=== PATIENT | male | born 1950 | race Caucasian/White ===

== ENCOUNTER → 2022-09-18 15:40 | Outpatient (BNVA) | payer MEDICARE, SELFPAY | PROVIDERS: PCP Nurse Practitioner; Visit Provider Nurse Practitioner | DX: E11.65 Type 2 diabetes mellitus with hyperglycemia (principal); J44.9 Chronic obstructive pulmonary disease, unspecified; I25.10 Atherosclerotic heart disease of native coronary artery without angina pectoris; Z95.810 Presence of automatic (implantable) cardiac defibrillator; I10 Essential (primary) hypertension | CPT/HCPCS: 80053; 80061; 81000; 82043; 83036; 83721; 84443; 85025 ==

== ENCOUNTER → 2022-10-31 14:04 | Outpatient (BNVA) | payer MEDICARE, SELFPAY | PROVIDERS: PCP Nurse Practitioner; Visit Provider Internal Medicine | DX: I73.9 Peripheral vascular disease, unspecified (principal); R06.02 Shortness of breath; Z95.810 Presence of automatic (implantable) cardiac defibrillator; E11.65 Type 2 diabetes mellitus with hyperglycemia; I10 Essential (primary) hypertension; E78.2 Mixed hyperlipidemia; J44.9 Chronic obstructive pulmonary disease, unspecified; I25.10 Atherosclerotic heart disease of native coronary artery without angina pectoris; Z87.891 Personal history of nicotine dependence; Z79.84 Long term (current) use of oral hypoglycemic drugs; Z79.82 Long term (current) use of aspirin | CPT/HCPCS: 93005; 99204 ==

== ENCOUNTER → 2022-11-05 08:58 | Outpatient (BNVA) | payer MEDICARE, SELFPAY | PROVIDERS: PCP Nurse Practitioner; Visit Provider Podiatrist Foot & Ankle Surgery | DX: I73.9 Peripheral vascular disease, unspecified (principal); B35.1 Tinea unguium; E11.9 Type 2 diabetes mellitus without complications; R60.9 Edema, unspecified; L60.3 Nail dystrophy; L84 Corns and callosities; Z79.84 Long term (current) use of oral hypoglycemic drugs | CPT/HCPCS: 11056; 11721; 99204 ==

== ENCOUNTER 2022-11-27 09:35 | Outpatient (CLI) | payer MEDICARE, SELFPAY ==
--- NOTE | 2022-11-27 10:00 | USCV_ITS ---
Harlan Diaz Age: 72 Gender: M : 1950 Exam Date: 11/27/2022 10:01 Ordering Phys: Kaushal Glover M.D ([email or web address]) Technologist: JAY [place]am [place] [facility] [place]: SHORTNESS OF BREATH BP: 137 / 90 HR: 62 Rhythm: Sinus Technical Quality: Adequate MEASUREMENTS (Male / Female) Normal Values 2D ECHO LVOT Diameter 2.0 cm LV Ejection Fraction MOD 2C 65.9 % LV Ejection Fraction 2C AL 67.7 % LA Diameter 3.1 cm LA Width 3.4 cm LA Height 5.1 cm RA Width 3.1 cm RA Height 3.9 cm Aorta at Sinotubular Diameter 2.6 cm IVC Diameter 1.7 cm M-MODE Aortic Annulus Diameter 2.8 cm LA Ao Ratio MM 1.0 MV E Point Septal Separation 0.6 cm DOPPLER AV Peak Velocity 184.0 cm/s LVOT Peak Velocity 78.0 cm/s AV Area Cont Eq vti 1.5 cm squared AV Area Cont Eq pk 1.3 cm squared MV Peak Velocity 114.0 cm/s MV Area PHT 5.0 cm squared Mitral E to A Ratio 1.4 MV E' Velocity 51.5 cm/s Mitral E to MV E' Ratio 12.7 Mitral E to LV E' Lateral Ratio 11.4 Mitral E to LV E' Septal Ratio 14.4 TV Peak E Velocity 56.0 cm/s Right Atrial Pressure 3.0 mmHg PV Peak Velocity 126.0 cm/s RV Acceleration Time 0.1 s RV Ejection Time 0.3 s RV AcT/ET 0.3 FINDINGS Left Ventricle Left ventricle is normal in size. LV systolic function is normal with EF of 55 to 60%. No regional wall motion abnormalities are seen. Right Ventricle Normal in size and function Right Atrium Normal in size Left Atrium Dilated Mitral Valve Structurally normal mitral valve. Trace mitral regurgitation. Aortic Valve Structurally normal aortic valve. No significant stenosis or regurgitation. Tricuspid Valve Mild tricuspid regurgitation.. Insufficient TR jet to calculate RVSP Pulmonic Valve Not well-visualized Pericardium Normal Aorta Normal in size IVC Appears to normal CONCLUSIONS LV systolic function is normal with EF 55 to 60% Left atrial dilation Trace mitral regurgitation Mild tricuspid regurgitaiton No comparison studies are available Kaushal Glover MD (Electronically Signed) Final Date: 08 December 2022 08:51 S
== END 2022-11-27 09:36 | disposition home or self-care (01) ==
PROVIDERS: PCP Nurse Practitioner; Visit Provider Internal Medicine
DX: R06.02 Shortness of breath (principal); I08.1 Rheumatic disorders of both mitral and tricuspid valves
CPT/HCPCS: 93306

== ENCOUNTER → 2022-12-18 16:41 | Outpatient (BNVA) | payer MEDICARE, SELFPAY | PROVIDERS: PCP Nurse Practitioner; Visit Provider Nurse Practitioner | DX: E78.2 Mixed hyperlipidemia (principal); E11.65 Type 2 diabetes mellitus with hyperglycemia; I10 Essential (primary) hypertension; I25.10 Atherosclerotic heart disease of native coronary artery without angina pectoris; J44.9 Chronic obstructive pulmonary disease, unspecified; Z12.5 Encounter for screening for malignant neoplasm of prostate; E11.9 Type 2 diabetes mellitus without complications | CPT/HCPCS: 80053; 81000; 83036; G0103 ==

== ENCOUNTER → 2023-01-07 08:57 | Outpatient (BNVA) | payer MEDICARE, SELFPAY | PROVIDERS: PCP Nurse Practitioner; Visit Provider Podiatrist Foot & Ankle Surgery | DX: I73.9 Peripheral vascular disease, unspecified (principal); B35.1 Tinea unguium; E11.9 Type 2 diabetes mellitus without complications; R60.9 Edema, unspecified; L60.3 Nail dystrophy | CPT/HCPCS: 11721 ==

== ENCOUNTER → 2023-03-04 10:18 | Outpatient (BNVA) | payer MEDICARE, SELFPAY | PROVIDERS: PCP Nurse Practitioner; Visit Provider Nurse Practitioner | DX: E11.65 Type 2 diabetes mellitus with hyperglycemia (principal); J44.9 Chronic obstructive pulmonary disease, unspecified; E78.2 Mixed hyperlipidemia; I25.10 Atherosclerotic heart disease of native coronary artery without angina pectoris; E11.9 Type 2 diabetes mellitus without complications; I10 Essential (primary) hypertension | CPT/HCPCS: 80053; 80061; 82043; 83036 ==

== ENCOUNTER → 2023-03-18 09:38 | Outpatient (BNVA) | payer MEDICARE, SELFPAY | PROVIDERS: PCP Nurse Practitioner; Visit Provider Podiatrist Foot & Ankle Surgery | DX: I73.9 Peripheral vascular disease, unspecified (principal); B35.1 Tinea unguium; E11.9 Type 2 diabetes mellitus without complications; R60.9 Edema, unspecified; L60.3 Nail dystrophy; Z79.84 Long term (current) use of oral hypoglycemic drugs | CPT/HCPCS: 11721 ==

== ENCOUNTER → 2023-05-24 07:57 | Outpatient (BNVA) | payer MEDICARE, SELFPAY | PROVIDERS: PCP Nurse Practitioner; Visit Provider Podiatrist Foot & Ankle Surgery | DX: I73.9 Peripheral vascular disease, unspecified (principal); B35.1 Tinea unguium; E11.9 Type 2 diabetes mellitus without complications; R60.9 Edema, unspecified; L60.3 Nail dystrophy; Z79.84 Long term (current) use of oral hypoglycemic drugs | CPT/HCPCS: 11721 ==

== ENCOUNTER → 2023-05-27 08:59 | Outpatient (BNVA) | payer MEDICARE, SELFPAY | PROVIDERS: PCP Nurse Practitioner; Visit Provider Nurse Practitioner | DX: E78.2 Mixed hyperlipidemia (principal); E11.65 Type 2 diabetes mellitus with hyperglycemia; I10 Essential (primary) hypertension; R39.11 Hesitancy of micturition; E11.9 Type 2 diabetes mellitus without complications; J44.9 Chronic obstructive pulmonary disease, unspecified; I25.10 Atherosclerotic heart disease of native coronary artery without angina pectoris | CPT/HCPCS: 80053; 80061; 81000; 83036 ==

== ENCOUNTER → 2023-07-26 07:52 | Outpatient (BNVA) | payer MEDICARE, SELFPAY | PROVIDERS: PCP Nurse Practitioner; Visit Provider Podiatrist Foot & Ankle Surgery | DX: B35.1 Tinea unguium (principal); E11.9 Type 2 diabetes mellitus without complications; I73.9 Peripheral vascular disease, unspecified; R60.9 Edema, unspecified; L60.3 Nail dystrophy; Z79.84 Long term (current) use of oral hypoglycemic drugs | CPT/HCPCS: 11721 ==

== ENCOUNTER → 2023-07-31 13:19 | Outpatient (BNVA) | payer MEDICARE, SELFPAY | PROVIDERS: PCP Nurse Practitioner; Visit Provider Nurse Practitioner Family | DX: I10 Essential (primary) hypertension (principal); I25.10 Atherosclerotic heart disease of native coronary artery without angina pectoris; Z95.810 Presence of automatic (implantable) cardiac defibrillator; Z87.891 Personal history of nicotine dependence | CPT/HCPCS: 99214 ==

== ENCOUNTER → 2023-08-19 08:33 | Outpatient (BNVA) | payer MEDICARE, SELFPAY | PROVIDERS: PCP Nurse Practitioner; Visit Provider Nurse Practitioner | DX: E11.65 Type 2 diabetes mellitus with hyperglycemia (principal) | CPT/HCPCS: 80053; 80061; 83036 ==

== ENCOUNTER → 2023-10-14 08:13 | Outpatient (BNVA) | payer MEDICARE, SELFPAY | PROVIDERS: PCP Nurse Practitioner; Visit Provider Podiatrist Foot & Ankle Surgery | DX: B35.1 Tinea unguium (principal); E11.9 Type 2 diabetes mellitus without complications; I73.9 Peripheral vascular disease, unspecified; R60.9 Edema, unspecified; L60.3 Nail dystrophy; Z79.84 Long term (current) use of oral hypoglycemic drugs | CPT/HCPCS: 11056; 11721 ==

== ENCOUNTER → 2023-11-19 09:01 | Outpatient (BNVA) | payer MEDICARE, SELFPAY | PROVIDERS: PCP Nurse Practitioner; Visit Provider Nurse Practitioner | DX: E11.9 Type 2 diabetes mellitus without complications (principal); F17.210 Nicotine dependence, cigarettes, uncomplicated | CPT/HCPCS: 80053; 83036 ==

== ENCOUNTER → 2023-11-26 10:16 | Outpatient (BNVA) | payer MEDICARE, SELFPAY | PROVIDERS: PCP Nurse Practitioner; Visit Provider Nurse Practitioner Family | DX: J44.1 Chronic obstructive pulmonary disease with (acute) exacerbation (principal) | CPT/HCPCS: 71046 ==

== ENCOUNTER 2023-11-27 13:05 | Outpatient (CLI) | payer MEDICARE, SELFPAY ==
--- NOTE | 2023-11-27 13:30 | CT_ITS ---
WS: [id number] LDCT LUNG CANCER SCREENING TECHNIQUE: Noncontrast CT of the chest with coronal and sagittal reformatted images. CLINICAL INFORMATION: F17.210 - Nicotine dependence, cigarettes, uncomplicated COMPARISON: None. DLP: 62.51 mGy.cm DIvol: Mean CTDIvol: 1.30 (mGy) All CT scans at [facility] use at least one of these dose optimization techniques: automat ed exposure control; mA and/or kV adjustment per patient size (includes targeted exams where dose is matched to clinical indication); or iterative reconstruction. FINDINGS: Patchy airspace infiltrates RIGHT lower lobe with nodularity. Recommend correlation for pne umonia. Bronchiectasis RIGHT lower lobe. Recommend short interval follow-up after treatment. Spiculated irregular lesion LEFT lower lobe has a suspicious appearance measuring 1.3 cm. Recommend f urther evaluation with PET/CT. This slightly abuts the diaphragm. Hypertrophic changes thoracic spine. Aortic calcification. Coronary calcification. AICD. A few promin ent parabronchial lymph nodes. Largest LEFT parabronchial lymph node measures 12 mm. No axillary lymp hadenopathy. Adrenal glands are normal. Normal GE junction. IMPRESSION: 1. Spiculated LEFT lower lobe lesion measures 1.3 cm suspicious for neoplasm. Recommend further eval uation with PET/CT. 2. In addition patchy airspace infiltrates in the RIGHT lower lobe with interstitial thickening and mild bronchiectasis. Recommend correlation for pneumonia and short interval contrast-enhanced CT ches t follow-up after treatment in [address]/CT lung screening [id number] LUNG-RADS: 4X-Suspicious FOLLOW UP: PET/CT recommended
== END 2023-11-27 13:06 | disposition home or self-care (01) ==
LOC: RAD 13:05
PROVIDERS: PCP Nurse Practitioner; Visit Provider Nurse Practitioner
DX: Z12.2 Encounter for screening for malignant neoplasm of respiratory organs (principal); R91.8 Other nonspecific abnormal finding of lung field; F17.210 Nicotine dependence, cigarettes, uncomplicated; J47.9 Bronchiectasis, uncomplicated
CPT/HCPCS: 71271

== ENCOUNTER 2023-12-17 07:59 | Outpatient (CLI) | payer MEDICARE, SELFPAY ==
--- NOTE | 2023-12-17 08:00 | PETR_ITS ---
PROCEDURE INFORMATION: Exam: PET/CT Skull Base to Mid-thigh Exam date and time: 12/17/2023 8:30 AM Age: 73 years old Clinical indication: Abnormal findings; Spiculated left lower lobe lesion measures 1.3 cm suspicious for neoplasm. Recommend further. Evaluation with pet/ct. Prior surgery; Surgery date: 6+ months; Surgery type: Stents, pacemaker; Additional info: R91.1 - solitary pulmonary nodule LABS AND CLINICAL REPORTS: Glucose: 143 mg/dl Treatment strategy for malignancy (PET staging): Initial Staging (PI) TECHNIQUE: Imaging protocol: Following at least four-hour fasting and following the injection of radiopharmaceutical, low dose CT images were obtained. Then, PET images were obtained. Attenuation corrected images were constructed using the CT scan. Fused images of PET and CT were reviewed. The standardized uptake values (SUV) reported below are maximum values within a region of interest, expressed in gm/ml. Exam includes orbital meatal line to mid-thigh. Radiopharmaceutical: 13.85 mCi F-18 FDG (Fluorodeoxyglucose), IV. Time of imaging post radiopharmaceutical administration: 1 hour Injection site: Not specified COMPARISON: CT chest 11/27/2023 FINDINGS: Tubes, catheters and devices: Pacemaker leads are present. Brain: Visualized brain has normal physiologic uptake. Paranasal sinuses: There is moderate non radiotracer avid mucosal thickening of the left maxillary sinus consistent with benign chronic sinusitis. Pharynx: No abnormal uptake. Larynx: No abnormal uptake. Lungs, pleura and trachea: No abnormal uptake. Mild bilateral centrilobular emphysematous changes are present. A region of ovoid predominantly solid patchy nodular density in the posterior right lower lobe measures 2.5 x 1.8 cm (previously 5.2 x 2.9 cm) on series 3, image 114, SUV max 1.6. A left upper lobe calcified granuloma is noted. A previously noted cavitary nodule slightly superior to this level currently measures 5 mm (previously 9 mm) on series 3, image 107, SUV max 0.7. An additional more superiorly located previously noted cavitary nodule in the posterior right upper lobe has nearly completely resolved and is not radiotracer avid measuring 4 mm (previously 8 mm) on series 3, image 98. A previously noted solid left lower lobe nodule is not well delineated on the current CT images. It may be faintly present on series 3, image 115 measuring 0.9 x 0.6 cm (previously approximately 1.3 x 0.9 cm) without elevated uptake, SUV max 0.4. Heart: Normal physiologic uptake. Mediastinal space: No abnormal uptake. Liver: No abnormal uptake. Gallbladder and bile ducts: No abnormal uptake. Pancreas: No abnormal uptake. Spleen: No abnormal uptake. A calcified granuloma in the spleen is present. Adrenal glands: No abnormal uptake. Kidneys and ureters: Normal physiologic uptake. Stomach and bowel: Uptake in the stomach and bowel appears physiologic. There are scattered colonic diverticula. Vasculature: No abnormal uptake. Diffuse atherosclerotic changes are noted including within the coronary arteries. Lymph nodes: No abnormal uptake. No lymphadenopathy in the head, neck, chest, abdomen, pelvis, and extremities. Bones/joints: No abnormal uptake in the visualized axial and appendicular skeleton. [id number] diffuse degenerative vertebral body spondylosis is noted. Soft tissues: No abnormal uptake in the visualized head, neck, chest, abdomen, pelvis, and extremities. There is an ovoid focus of subcutaneous soft tissue density in the posterior right hemithorax on series 3, image 95 measuring 1.6 x 0.8 cm without elevated uptake compatible with a benign finding. An additional non radiotracer avid subcutaneous nodule in the posterior left shoulder region is noted measuring 1.6 x 1.4 cm on series 3, image 54. METRICS: Mediastinal blood pool: SUV max 1.8 PET/PET [facility] INITIAL [id number] IMPRESSION: 1. No evidence of radiotracer avid malignancy. 2. Previously noted masslike consolidation in the right lower lobe is nearly completely resolved and bilateral solid pulmonary nodules, some of which were cavitary in appearance on the prior CT have significantly decreased in size. None of these areas are radiotracer avid. These findings are most suggestive of resolving atypical infectious infiltrates rather than malignancy. 3. Subcutaneous nodules which are without elevated uptake are noted in the posterior right hemithorax and posterior left shoulder region compatible with benign findings. 4. Additional nonurgent findings as detailed above.
== END 2023-12-17 08:00 | disposition home or self-care (01) ==
LOC: RAD 08:00
PROVIDERS: PCP Nurse Practitioner; Visit Provider Nurse Practitioner
DX: R91.1 Solitary pulmonary nodule (principal); R91.8 Other nonspecific abnormal finding of lung field
CPT/HCPCS: 78815; A9552

== ENCOUNTER → 2023-12-23 07:55 | Outpatient (BNVA) | payer MEDICARE, SELFPAY | PROVIDERS: PCP Nurse Practitioner; Visit Provider Podiatrist Foot & Ankle Surgery | DX: B35.1 Tinea unguium (principal); I73.9 Peripheral vascular disease, unspecified; R60.9 Edema, unspecified; E11.69 Type 2 diabetes mellitus with other specified complication; Z79.84 Long term (current) use of oral hypoglycemic drugs | CPT/HCPCS: 11721 ==

== ENCOUNTER → 2024-01-13 14:00 | Outpatient (BNVA) | payer MEDICARE, SELFPAY | PROVIDERS: PCP Nurse Practitioner; Visit Provider Nurse Practitioner Family | DX: R05.9 Cough, unspecified (principal); R91.8 Other nonspecific abnormal finding of lung field | CPT/HCPCS: 71046 ==

== ENCOUNTER 2024-01-14 04:36 | Observation (INO) | payer MEDICARE, SELFPAY ==
[2024-01-14] VITALS (18 sets, daily range): BP systolic 140–201; BP diastolic 67–103; PULSE 66–88; RESP 15–26; TEMP 36.4–36.6; O2SAT 90–97; BMI 25.8
--- NOTE | 2024-01-14 04:40 | XR_ITS ---
WS: [id number] PORTABLE CHEST HISTORY: Chest pain COMPARISON: 01/13/2024 Dual-lead LEFT subclavian pacer defibrillator. Hyperinflated lungs. No mass or nodule. No pleural effusion or pneumothorax. Cardiac size: Normal. Mediastinum/Aorta: Mild atherosclerosis aorta. No osseous abnormality seen. XR/XR chest 1V portable [id number] IMPRESSION: 1. Mild emphysema. No mass or nodule. 2. Mild atherosclerosis aorta.
--- NOTE | 2024-01-14 04:42 | ECG_ITS ---
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 Measurements Intervals [place] Rate: 82 P: 73 NE: 144 QRS: 189 QRSD: 108 T: 30 QT: 393 QTc: 461 Interpretive Statements ELECTRONIC VENTRICULAR PACEMAKER A sensed V paced rhythm ABNORMAL RHYTHM ECG No previous ECG available for comparison Electronically Signed On 01-14-2024 22:48:18 CDT by Conner Woody M.D. [email or web address]
--- NOTE | 2024-01-14 04:45 | ED_ITS ---
Documented by User: Evette Sanchez MD 01/14/24 05:20 HPI - Chest Pain 2 General: Chief Complaint: Chest Pain Stated Complaint: Chest Pains Time Seen by Provider: 01/14/24 04:37 History of Present Illness: 73-year-old man with a history of avendano ry artery disease status post stents, pacemaker placement, COPD who presents emergency room with chest pain and shortness of breath. He says he has been feeling short of breath for a day or 2 now. Went to his doctor today. This evening about an hour or so ago he started having some chest pain that felt just like when he had had heart attacks in the past. He took 3 nitro and now is chest pain-free. He has had some cough. Some wheeze. Review of Systems 2 Narrative: Constitutional symptoms: Negative except as documented in HPI. Skin symptoms: Negative except as documented in HPI. Eye symptoms: Negative except as documented in HPI. ENMT symptoms: Negative except as documented in HPI. Respiratory symptoms: Negative except as documented in HPI. Cardiovascular symptoms: Negative except as documented in HPI. Gastrointestinal symptoms: Negative except as documented in HPI. Genitourinary symptoms: Negative except as documented in HPI. Musculoskeletal symptoms: Negative except as documented in HPI. Neurologic symptoms: Negative except as documented in HPI. Psychiatric symptoms: Negative except as documented in HPI. Endocrine symptoms: Negative except as documented in HPI. PFSH ED 2 PFSH: Medical History Diabetes mellitus with hyperglycemia Essential hypertension Hyperlipidemia, mixed COPD (chronic obstructive pulmonary disease) CAD (coronary artery disease) History of cardiac arrest 03/26/[address] Surgical History History of implantable cardiac defibrillator (ICD) Had 2 producers 2010 and 2019 History of heart artery stent two different times Family History Father CAD (coronary artery disease) Hypertension Mother CAD (coronary artery disease) Diabetes Sister Cancer Eye Stroke Brother Cancer Lung brain Denies family history of Chronic kidney disease (CKD) Anesthesia complication Bleeding disorder Social History Smoking and tobacco/nicotine status: former use of tobacco/nicotine Second hand smoke exposure: No Alcohol intake: current Alcohol intake frequency: 0-2 Drinks per Day Alcohol type: beer Substance/Drug Use: unknown Adopted: No Caregiver/support person: No Lives independently: Yes Household members: spouse Housing: House Marital status: Number of children: 3 service: No Current occupational status: retired Pets and animals: Yes Pets & animals: farm animals Do you think of yourself as: Straight/Heterosexual Current gender identity: Male Physical Exam 2 Narrative: EXAM NARRATIVE: General: Alert, no acute distress. Skin: Warm, dry. Head: Normocephalic, atraumatic. Neck: Supple, trachea midline. Eye: Extraocular movements are intact. Ears, nose, mouth and throat: mucosa moist. Cardiovascular: Regular, Normal peripheral perfusion. Respiratory: Lungs are clear to auscultation, respirations are non-labored, breath sounds are equal, Symmetrical chest wall expansion. Gastrointestinal: Soft, Nontender, Non distended, Normal bowel sounds. Musculoskeletal: Normal ROM, no deformity. Neurological: Alert and oriented, No focal neurological deficit observed. Psychiatric: Cooperative, appropriate mood & affect. Course 2 Vital Signs: Vital signs: Vital Signs Temperature 97.9 F 01/14/24 04:37 Pulse Rate 73 01/14/24 06:30 Respiratory Rate 22 H 01/14/24 06:30 Blood Pressure 191/71 01/14/24 06:30 Pulse Oximetry 92 01/14/24 06:30 Oxygen Delivery Me thod Nasal Cannula 01/14/24 06:05 Oxygen Flow Rate 2 01/14/24 06:05 MDM - Chest Pain Medical Decision Making Differential diagnosis for patient with chest pain includes but is not limited to and based on the above HPI, review of systems and physical exam: Pneumonia. unstable angina. angina. Acute coronary syndrome / [place]. Pulmonary embolism. Costochondritis / musculoskeletal. Pleurisy. Pericarditis. Esophageal spasm. Pancreatis. Cholecystitis. Workup: Lab work, chest X-ray and EKG ordered to evaluate, rule in and rule out above pathologies. EKG: Time 442 rate 82 Normal sinus rhythm, No ST-T changes, no ectopy, paced rhythm, this was reviewed and interpreted by myself the emergency room physician at 4:45 AM Chest x-ray: No acute process. No infiltrate. No pneumothorax. No cardiomegaly. This was reviewed and interpreted by myself the ER physician. Patient care transitioned to Dr. Guzman at shift change. Lab Data 01/14/24 04:49 01/14/24 04:49 Laboratory Results WBC 11.79 10^3/uL (3.29-11.43) H 01/14/24 04:49 RBC 5.30 10^6/uL (3.85-5.65) 01/14/24 04:49 Hgb 15.10 g/dL (11.27-16.99) 01/14/24 04:49 Hct 47.2 % (37-53) 01/14/24 04:49 MCV 89.1 fl (82-101) 01/14/24 04:49 MCH 28.5 pg (27-33) 01/14/24 04:49 MCHC 32.0 g/dL (30-55) 01/14/24 04:49 RDW 14.9 % (12.1-15.1) 01/14/24 04:49 Plt Count 254 10^3/cmm (157-399) 01/14/24 04:49 MPV 8.9 fL (7.4-10.4) 01/14/24 04:49 Neut % (Auto) 87.1 % 01/14/24 04:49 Lymph % (Auto) 3.0 % 01/14/24 04:49 Chester % (Auto) 8.7 % 01/14/24 04:49 Eos % (Auto) 0.0 % 01/14/24 04:49 Baso % (Auto) 0.3 % 01/14/24 04:49 Neut # (Auto) 10.26 10^3/uL (1.8-7.7) H 01/14/24 04:49 Lymph # (Auto) 0.4 10^3/uL (0.8-4.8) L 01/14/24 04:49 Chester # (Auto) 1.0 10^3/uL (0.2-0.9) H 01/14/24 04:49 Eos # (Auto) 0.0 10^3/uL (0.0-0.8) 01/14/24 04:49 Baso # (Auto) 0.0 10^3/uL (0.0-0.1) 01/14/24 04:49 Nucleated RBC % (auto) 0 % 01/14/24 04:49 Nucleated RBCs # 0.0 /100WBC 01/14/24 04:49 Specimen Type Arterial 01/14/24 04:54 Sample Site Brachial, left 01/14/24 04:54 ABG pH 7.33 (7.35-7.45) L 01/14/24 04:54 ABG pCO2 49.1 mmHg (35-45) H 01/14/24 04:54 ABG pO2 74.0 mmHg (80.0-100.0) L 01/14/24 04:54 ABG PO2/FiO2 Ratio 0 01/14/24 04:54 ABG HCO3 25.6 mmol/L (22-26) 01/14/24 04:54 ABG O2 Saturation 92.8 01/14/24 04:54 ABG Base Excess -1.0 mmol/L (-2.0-2.0) 01/14/24 04:54 Antonio Test Pos 01/14/24 04:54 A-a O2 Gradient 8.2 mmHg (5-10) 01/14/24 04:54 Hematocrit 45.4 % (42-52) 01/14/24 04:54 Hgb O2 Saturation 92.0 % (95-100) L 01/14/24 04:54 Carboxyhemoglobin 0.5 %THgb (0.4-20.1) 01/14/24 04:54 Methemoglobin 0.3 % (0.4-1.5) L 01/14/24 04:54 Total Hemoglobin 14.8 g/dL (14-18) 01/14/24 04:54 Sodium 137.0 mmol/L (131-143) 01/14/24 04:54 Potassium 4.2 mmol/L (3.5-5.0) 01/14/24 04:54 Glucose 177.0 mg/dL (70-115) H 01/14/24 04:54 Ionized Calcium 1.3 mmol/L (1.1-1.4) 01/14/24 04:54 O2 Delivery Device Nc 01/14/24 04:54 O2 Liters/Min 2.0 % 01/14/24 04:54 FiO2 28.0 % 01/14/24 04:54 [email or web address] Architect ID [email or web address] 01/14/24 04:54 Sodium 136 mmol/L (136-145) 01/14/24 04:49 Potassium 4.6 mmol/L (3.5-5.1) 01/14/24 04:49 Chloride 97 mmol/L (98-107) L 01/14/24 04:49 Carbon Dioxide 22 mmol/L (22-29) 01/14/24 04:49 Anion Gap 21.6 (5-19) H 01/14/24 04:49 BUN 15 mg/dL (8-23) 01/14/24 04:49 Creatinine 0.7 mg/dL (0.7-1.2) 01/14/24 04:49 GFR Calculation Not Reportable 01/14/24 04:49 Glucose 196 mg/dL (65-115) H 01/14/24 04:49 Calculated Osmolality 288 mOsm/kg (285-295) 01/14/24 04:49 Calcium 9.7 mg/dL (8.5-10.5) 01/14/24 04:49 Total Bilirubin 0.4 mg/dL (0.15-1.2) 01/14/24 04:49 AST 16 U/L (0-40) 01/14/24 04:49 ALT 20 U/L (0-41) 01/14/24 04:49 Alkaline Phosphatase 79 U/L (40-130) 01/14/24 04:49 Troponin T Baseline 14 ng/L (0-15) 01/14/24 04:49 Troponin T 120 Minute 19.16 ng/L (0-15) H 01/14/24 06:24 Delta Troponin T 5.16 ABS# (0-10) 01/14/24 06:24 NT-Pro-B Natriuret Pep 426 pg/mL (0-125) H 01/14/24 04:49 Total Protein 7.3 g/dL (6.6-8.7) 01/14/24 04:49 Albumin 4.5 g/dL (3.5-5.2) 01/14/24 04:49 Globulin 2.8 g/dL (1.3-4.6) 01/14/24 04:49 Discharge Plan Discharge Patient Disposition: Placed in Observation Clinical Impression: Chest pain, CAD (coronary artery disease), COPD (chronic obstructive pulmonary disease), Cardiac defibrillator in place Condition: Stable Prescriptions: No Action aspirin 81 mg tablet,delayed release (DR/EC) 81 mg PO DAILY albuterol sulfate 90 mcg/actuation HFA aerosol inhaler 2 puff inhalation Q4H PRN (Reason: shortness of breath or wheezing) Qty: 25.5 1RF (DME) Nebulizer See Rx Instructions .Route .MEDSUPPLY Qty: 1 0RF Rx Instructions: As directed atorvastatin 80 mg tablet 80 mg PO DAILY Qty: 90 1RF budesonide [Pulmicort] 0.5 mg/2 mL suspension for nebulization 0.5 mg inhalation BID Qty: 720 1RF finasteride [Proscar] 5 mg tablet 5 mg PO DAILY Qty: 90 1RF fluticasone propionate [Flonase Allergy Relief] 50 mcg/actuation spray,suspension 1 spray intranasal Q12H Qty: 32 1RF Rx Instructions: administer into each nostril formoterol fumarate [Perforomist] 20 mcg/2 mL solution for nebulization 2 ml inhalation Q12H Qty: 720 1RF glipizide 10 mg tablet extended release 24hr 10 mg PO DAILY Qty: 90 1RF omega-3 acid ethyl esters 1 gram capsule 2 cap PO BID Qty: 360 1RF metformin 500 mg tablet extended release 24 hr 1,500 mg PO DAILY Qty: 270 1RF sotalol [Sotalol AF] 120 mg tablet 120 mg PO BID Qty: 180 1RF albuterol sulfate 2.5 mg /3 mL (0.083 %) solution for nebulization 2.5 mg inhalation Q4H PRN (Reason: shortness of breath or wheezing) Qty: 180 5RF prednisone 5 mg tablet 5 mg PO DAILY Qty: 30 0RF spironolactone 25 mg tablet 25 mg PO QAM Qty: 90 1RF Rx Instructions: has med at home enalapril maleate 5 mg tablet 2.5 mg PO DAILY Qty: 1 0RF Hold Instructions: Doctor's Order Rx Instructions: 1/2 tab has at home levofloxacin 750 mg tablet 750 mg PO DAILY Qty: 10 0RF prednisone 20 mg tablet 20 mg PO BID Qty: 10 0RF nitroglycerin 0.4 mg tablet, sublingual 0.4 mg sublingual Q5M Qty: 25 2RF Referrals: Kaveh Craig, LEAD QUALITY CONTROL TECHNICIAN-C [Primary Care Provider] - Sign Out Sign Out Data: Patient Sign Out occurred on 01/14/24 at 06:08. Patient's care was discussed, and care was transferred from Evette Sanchez MD to Wyatt Guzman DO. Coding Level of Care Code ED Sales Representative Facility Services for [facility] Documented by User: Wyatt Guzman DO 01/14/24 07:21 HPI - Chest Pain 2 General: Chief Complaint: Chest Pain Stated Complaint: Chest Pains Time Seen by Provider: 01/14/24 04:37 PFSH ED 2 PFSH: Medical History Diabetes mellitus with hyperglycemia Essential hypertension Hyperlipidemia, mixed COPD (chronic obstructive pulmonary disease) CAD (coronary artery disease) History of cardiac arrest 03/26/[address] Surgical History History of implantable cardiac defibrillator (ICD) Had 2 producers 2010 and 2019 History of heart artery stent two different times Family History Father CAD (coronary artery disease) Hypertension Mother CAD (coronary artery disease) Diabetes Sister Cancer Eye Stroke Brother Cancer Lung brain Denies family history of Chronic kidney disease (CKD) Anesthesia complication Bleeding disorder Social History Smoking and tobacco/nicotine status: former use of tobacco/nicotine Second hand smoke exposure: No Alcohol intake: current Alcohol intake frequency: 0-2 Drinks per Day Alcohol type: beer Substance/Drug Use: unknown Adopted: No Caregiver/support person: No Lives independently: Yes Household members: spouse Housing: House Marital status: Number of children: 3 service: No Current occupational status: retired Pets and animals: Yes Pets & animals: farm animals Do you think of yourself as: Straight/Heterosexual Current gender identity: Male Course 2 Vital Signs: Vital signs: Vital Signs Temperature 97.9 F 01/14/24 04:37 Pulse Rate 73 01/14/24 06:30 Respiratory Rate 22 H 01/14/24 06:30 Blood Pressure 191/71 01/14/24 06:30 Pulse Oximetry 92 01/14/24 06:30 Oxygen Delivery Me thod Nasal Cannula 01/14/24 06:05 Oxygen Flow Rate 2 01/14/24 06:05 MDM - Chest Pain Medical Decision Making Differential diagnosis for patient with chest pain includes but is not limited to and based on the above HPI, review of systems and physical exam: Pneumonia. unstable angina. angina. Acute coronary syndrome / [place]. Pulmonary embolism. Costochondritis / musculoskeletal. Pleurisy. Pericarditis. Esophageal spasm. Pancreatis. Cholecystitis. Workup: Lab work, chest X-ray and EKG ordered to evaluate, rule in and rule out above pathologies. EKG: Time 442 rate 82 Normal sinus rhythm, No ST-T changes, no ectopy, paced rhythm, this was reviewed and interpreted by myself the emergency room physician at 4:45 AM Chest x-ray: No acute process. No infiltrate. No pneumothorax. No cardiomegaly. This was reviewed and interpreted by myself the ER physician. Patient care transitioned to Dr. Guzman at shift change. Care assumed from Dr. Sanchez at change of shift. Patient has a indeterminate increase in his troponin with a +5.2 delta on the 2-hour troponin. He is not having any further chest pain. Patient has a known history of coronary disease in note from July 2023 seen the midlevel to cardiology clinic and was intermittently having chest pain. He has not had any cardiac evaluation since his last stent which she related to sometime around 2018. He has noticed increasing shortness of breath with activity somewhat which has been relegated to COPD. He has noticed increasing shortness of breath with activity over time but it does not necessarily notice an increase episodes of chest discomfort or use of nitro. Given his known history of coronary disease and no recent testing chest discomfort relieved by nitro and a moderate bump in his troponin will place patient on observation for further cardiac evaluation and testing. EKG shows paced rhythm Lab Data I reviewed the patient's lab results. 01/14/24 04:49 01/14/24 04:49 Laboratory Results WBC 11.79 10^3/uL (3.29-11.43) H 01/14/24 04:49 RBC 5.30 10^6/uL (3.85-5.65) 01/14/24 04:49 Hgb 15.10 g/dL (11.27-16.99) 01/14/24 04:49 Hct 47.2 % (37-53) 01/14/24 04:49 MCV 89.1 fl (82-101) 01/14/24 04:49 MCH 28.5 pg (27-33) 01/14/24 04:49 MCHC 32.0 g/dL (30-55) 01/14/24 04:49 RDW 14.9 % (12.1-15.1) 01/14/24 04:49 Plt Count 254 10^3/cmm (157-399) 01/14/24 04:49 MPV 8.9 fL (7.4-10.4) 01/14/24 04:49 Neut % (Auto) 87.1 % 01/14/24 04:49 Lymph % (Auto) 3.0 % 01/14/24 04:49 Chester % (Auto) 8.7 % 01/14/24 04:49 Eos % (Auto) 0.0 % 01/14/24 04:49 Baso % (Auto) 0.3 % 01/14/24 04:49 Neut # (Auto) 10.26 10^3/uL (1.8-7.7) H 01/14/24 04:49 Lymph # (Auto) 0.4 10^3/uL (0.8-4.8) L 01/14/24 04:49 Chester # (Auto) 1.0 10^3/uL (0.2-0.9) H 01/14/24 04:49 Eos # (Auto) 0.0 10^3/uL (0.0-0.8) 01/14/24 04:49 Baso # (Auto) 0.0 10^3/uL (0.0-0.1) 01/14/24 04:49 Nucleated RBC % (auto) 0 % 01/14/24 04:49 Nucleated RBCs # 0.0 /100WBC 01/14/24 04:49 Specimen Type Arterial 01/14/24 04:54 Sample Site Brachial, left 01/14/24 04:54 ABG pH 7.33 (7.35-7.45) L 01/14/24 04:54 ABG pCO2 49.1 mmHg (35-45) H 01/14/24 04:54 ABG pO2 74.0 mmHg (80.0-100.0) L 01/14/24 04:54 ABG PO2/FiO2 Ratio 0 01/14/24 04:54 ABG HCO3 25.6 mmol/L (22-26) 01/14/24 04:54 ABG O2 Saturation 92.8 01/14/24 04:54 ABG Base Excess -1.0 mmol/L (-2.0-2.0) 01/14/24 04:54 Antonio Test Pos 01/14/24 04:54 A-a O2 Gradient 8.2 mmHg (5-10) 01/14/24 04:54 Hematocrit 45.4 % (42-52) 01/14/24 04:54 Hgb O2 Saturation 92.0 % (95-100) L 01/14/24 04:54 Carboxyhemoglobin 0.5 %THgb (0.4-20.1) 01/14/24 04:54 Methemoglobin 0.3 % (0.4-1.5) L 01/14/24 04:54 Total Hemoglobin 14.8 g/dL (14-18) 01/14/24 04:54 Sodium 137.0 mmol/L (131-143) 01/14/24 04:54 Potassium 4.2 mmol/L (3.5-5.0) 01/14/24 04:54 Glucose 177.0 mg/dL (70-115) H 01/14/24 04:54 Ionized Calcium 1.3 mmol/L (1.1-1.4) 01/14/24 04:54 O2 Delivery Device Nc 01/14/24 04:54 O2 Liters/Min 2.0 % 01/14/24 04:54 FiO2 28.0 % 01/14/24 04:54 [email or web address] Architect ID [email or web address] 01/14/24 04:54 Sodium 136 mmol/L (136-145) 01/14/24 04:49 Potassium 4.6 mmol/L (3.5-5.1) 01/14/24 04:49 Chloride 97 mmol/L (98-107) L 01/14/24 04:49 Carbon Dioxide 22 mmol/L (22-29) 01/14/24 04:49 Anion Gap 21.6 (5-19) H 01/14/24 04:49 BUN 15 mg/dL (8-23) 01/14/24 04:49 Creatinine 0.7 mg/dL (0.7-1.2) 01/14/24 04:49 GFR Calculation Not Reportable 01/14/24 04:49 Glucose 196 mg/dL (65-115) H 01/14/24 04:49 Calculated Osmolality 288 mOsm/kg (285-295) 01/14/24 04:49 Calcium 9.7 mg/dL (8.5-10.5) 01/14/24 04:49 Total Bilirubin 0.4 mg/dL (0.15-1.2) 01/14/24 04:49 AST 16 U/L (0-40) 01/14/24 04:49 ALT 20 U/L (0-41) 01/14/24 04:49 Alkaline Phosphatase 79 U/L (40-130) 01/14/24 04:49 Troponin T Baseline 14 ng/L (0-15) 01/14/24 04:49 Troponin T 120 Minute 19.16 ng/L (0-15) H 01/14/24 06:24 Delta Troponin T 5.16 ABS# (0-10) 01/14/24 06:24 NT-Pro-B Natriuret Pep 426 pg/mL (0-125) H 01/14/24 04:49 Total Protein 7.3 g/dL (6.6-8.7) 01/14/24 04:49 Albumin 4.5 g/dL (3.5-5.2) 01/14/24 04:49 Globulin 2.8 g/dL (1.3-4.6) 01/14/24 04:49 All radiology interpretation(s) finalized by discharge Discharge Plan Discharge Patient Disposition: Placed in Observation Clinical Impression: Chest pain, CAD (coronary artery disease), COPD (chronic obstructive pulmonary disease), Cardiac defibrillator in place Condition: Stable Prescriptions: No Action aspirin 81 mg tablet,delayed release (DR/EC) 81 mg PO DAILY albuterol sulfate 90 mcg/actuation HFA aerosol inhaler 2 puff inhalation Q4H PRN (Reason: shortness of breath or wheezing) Qty: 25.5 1RF (DME) Nebulizer See Rx Instructions .Route .MEDSUPPLY Qty: 1 0RF Rx Instructions: As directed atorvastatin 80 mg tablet 80 mg PO DAILY Qty: 90 1RF budesonide [Pulmicort] 0.5 mg/2 mL suspension for nebulization 0.5 mg inhalation BID Qty: 720 1RF finasteride [Proscar] 5 mg tablet 5 mg PO DAILY Qty: 90 1RF fluticasone propionate [Flonase Allergy Relief] 50 mcg/actuation spray,suspension 1 spray intranasal Q12H Qty: 32 1RF Rx Instructions: administer into each nostril formoterol fumarate [Perforomist] 20 mcg/2 mL solution for nebulization 2 ml inhalation Q12H Qty: 720 1RF glipizide 10 mg tablet extended release 24hr 10 mg PO DAILY Qty: 90 1RF omega-3 acid ethyl esters 1 gram capsule 2 cap PO BID Qty: 360 1RF metformin 500 mg tablet extended release 24 hr 1,500 mg PO DAILY Qty: 270 1RF sotalol [Sotalol AF] 120 mg tablet 120 mg PO BID Qty: 180 1RF albuterol sulfate 2.5 mg /3 mL (0.083 %) solution for nebulization 2.5 mg inhalation Q4H PRN (Reason: shortness of breath or wheezing) Qty: 180 5RF prednisone 5 mg tablet 5 mg PO DAILY Qty: 30 0RF spironolactone 25 mg tablet 25 mg PO QAM Qty: 90 1RF Rx Instructions: has med at home enalapril maleate 5 mg tablet 2.5 mg PO DAILY Qty: 1 0RF Hold Instructions: Doctor's Order Rx Instructions: 1/2 tab has at home levofloxacin 750 mg tablet 750 mg PO DAILY Qty: 10 0RF prednisone 20 mg tablet 20 mg PO BID Qty: 10 0RF nitroglycerin 0.4 mg tablet, sublingual 0.4 mg sublingual Q5M Qty: 25 2RF Referrals: Kaveh Craig FNP-C [Primary Care Provider] - Sign Out Sign Out Data: Patient Sign Out occurred on 01/14/24 at 06:08. Patient's care was discussed, and care was transferred from Evette Sanchez MD to Wyatt Guzman DO. Coding Level of Care Code ED Sales Representative Facility Services for [facility] [employer]
[2024-01-14 04:54] LABS: Basophils % 0.3 %; Hematocrit 47.2 % (37-53); Lymphocytes # 0.4 10^3/uL (0.8-4.8); Mean Corpuscular Hemoglobin 28.5 pg (27-33); Mean Corpuscular Volume 89.1 fl (82-101); Mean Platelet Volume 8.9 fL (7.4-10.4); Monocytes % 8.7 %; Neutrophils # 10.26 10^3/uL (1.8-7.7); Neutrophils % 87.1 %; Nucleated Red Blood Cells % 0 %; Platelet Count 254 10^3/cmm (157-399); Red Cell Distribution Width 14.9 % (12.1-15.1); White Blood Count 11.79 10^3/uL (3.29-11.43)
[2024-01-14] MEDS: aspirin 81 mg Chew Tablet 324 MG PO (04:55)
[2024-01-14 04:59] LABS: ABG PCO2 49.1 mmHg (35-45); ABG PH Result 7.33 (7.35-7.45); Alveolar-Arterial Oxygen Gradi 8.2 mmHg (5-10); Arterial Blood Gas Hematocrit 45.4 % (42-52); Blood Gas Allen Test Pos; Blood Gas Sample Site Brachial, left; Blood Gas Sample Type Arterial; Carboxyhemoglobin 0.5 %THgb (0.4-20.1); HCO3 ABG 25.6 mmol/L (22-26); Ionized Calcium Level - ABG 1.3 mmol/L (1.1-1.4); Methemoglobin 0.3 % (0.4-1.5); Oxygen Device NC; Oxygen Saturation ABG 92.8; PO2 FiO2 Ratio Arterial Blood 0; Potassium Level - ABG 4.2 mmol/L (3.5-5.0); Total Hemoglobin 14.8 g/dL (14-18)
[2024-01-14 05:18] LABS: Troponin(5th) Baseline 14 ng/L (0-15)
[2024-01-14 05:25] LABS: Alanine Aminotransferase 20 U/L (0-41); Albumin Level 4.5 g/dL (3.5-5.2); Alkaline Phosphatase 79 U/L (40-130); Aspartate Amino Transferase 16 U/L (0-40); Blood Urea Nitrogen 15 mg/dL (8-23); Calcium 9.7 mg/dL (8.5-10.5); Carbon Dioxide 22 mmol/L (22-29); Chloride 97 mmol/L (98-107); Creatinine Clr Calc Pharmacy 88.8514; Globulin 2.8 g/dL (1.3-4.6); Glucose 196 mg/dL (65-115); NT Pro B Type Natriuretic Pept 426 pg/mL (0-125); Osmolality Calculated 288 mOsm/kg (285-295); Sodium 136 mmol/L (136-145); Total Bilirubin 0.4 mg/dL (0.15-1.2); Total Protein 7.3 g/dL (6.6-8.7)
[2024-01-14 05:26] LABS: Anion Gap 21.6 (5-19); Potassium 4.6 mmol/L (3.5-5.1)
[2024-01-14] MEDS: ipratropium-albuterol 3 mL Neb INHALATION ×5 (05:52→19:15)
[2024-01-14] MEDS: albuterol 2.5 mg/3 mL Neb INHALATION (05:52)
--- NOTE | 2024-01-14 06:05 | PC.NURSE ---
Patient placed on 2l/ nc for sob, pt has copd. Sats 90%RA but uncomfortable.
[2024-01-14 06:45] LABS: Troponin 5 2HR 19.16 ng/L (0-15); Troponin 5 2HR Delta 5.16 ABS# (0-10)
--- NOTE | 2024-01-14 07:07 | ECG_ITS ---
[facility] Test Date: 2024-01-14 Pat Name: Harlan Diaz Department: Room: Gender: Male Senior Licensing Manager: : [id number] Requested By: Evette Perez Order Number: [id number] Cathy MD: Conner Woody M.D. Measurements Intervals [place] Rate: 78 P: 57 NC: 172 QRS: 241 QRSD: 98 T: 39 QT: 405 QTc: 461 Interpretive Statements ELECTRONIC VENTRICULAR PACEMAKER-A sensed V paced rhythm ABNORMAL RHYTHM ECG Compared to ECG 01/14/2024 04:42:21 No significant changes Electronically Signed On 01-14-2024 23:02:57 CDT by Conner Woody M.D. [email or web address]
--- NOTE | 2024-01-14 07:29 | PC.NURSE ---
ROOM AIR TRIAL, PATIENT 89-92%, PROVIDER NOTIFIED AND ASKED TO BE PLACED BACK ON 2 L NC.
[2024-01-14] MEDS: budesonide 0.5 mg/2 mL Neb INHALATION ×2 (07:48→19:15)
[2024-01-14] MEDS: lisinopril 2.5 mg Tablet PO (08:03)
[2024-01-14] MEDS: spironolactone 25 mg Tablet PO (08:03)
--- NOTE | 2024-01-14 08:07 | P.HP_ITS ---
Documented by User: CHEMA Alvarez [email or web address] 01/14/24 09:11 Providers/Chief Complaint 2 Admitting Physician: Scott Nieves MD Primary Care Provider: JOSEPH Sanchez Chief Complaint: Chest Pains History of Present Illness Harlan Diaz is a 73 year old male who presents to the ED today with chest discomfort and cough with productive sputum, onset approximately 2 months prior. He said his cough has been so bad that has been causing him chest discomfort. He said his chest discomfort got worse yesterday for which he took 3 nitroglycerin, after which he decided he needed to come to the hospital. He has seen his family practice provider, JAKOB Godinez, and she had given him a injection of Decadron, and a prescription of levofloxacin and prednisone. According to her note he had been on Augmentin in the months prior for similar symptoms. He also reports feeling chest palpitations/increased heart rate, but he believes this might be due to his albuterol, as he is just feeling in the past after taking too much albuterol. He reports that he had overdone his albuterol yesterday. Patient is current smoker. He denies any sick contacts. Denies any home oxygen use. He denies any headache, changes in vision, fevers, chills, nausea, vomiting, constipation, diarrhea, or extremity concerns. Patient medical history significant for COPD, heart disease, essential hypertension, hyperlipidemia, diabetes, BPH, and a pacemaker placement in 2011. He reports that in 2013 he , that which is pacemaker defibrillator had fired. Surgical history is significant for pacemaker placement and stents. Patient was given aspirin, DuoNeb, albuterol, lisinopril, Aldactone, DuoNeb, and Pulmicort in the ED. Review of Systems 2 General: Reports: 10 or more systems reviewed and unremarkable except in HPI and below Narrative: Negative except for as noted above. Card: Reports: palpitations Resp: Reports: dyspnea, productive cough and wheezing Medications/Allergies Home Medications Medication Instructions Recorded Confirmed Last Taken Type aspirin 81 mg tablet,delayed 81 mg PO DAILY 09/18/22 01/14/24 01/13/24 History release Nebulizer #1 ea 08/19/23 01/14/24 Unknown Rx albuterol sulfate 90 mcg/actuation 2 puff inhalation Q4H PRN 08/19/23 01/14/24 Unknown Rx aerosol inhaler shortness of breath or wheezing #25.5 grams atorvastatin 80 mg tablet 80 mg PO DAILY #90 tabs 11/19/23 01/14/24 01/13/24 Rx budesonide 0.5 mg/2 mL suspension 0.5 mg (2 mL) inhalation BID #720 11/19/23 01/14/24 01/13/24 Rx for nebulization (Pulmicort) mL finasteride 5 mg tablet (Proscar) 5 mg PO DAILY #90 tabs 11/19/23 01/14/24 01/13/24 Rx fluticasone propionate 50 1 spray intranasal Q12H #32 grams 11/19/23 01/14/24 01/13/24 Rx mcg/actuation nasal spray,suspension (Flonase Allergy Relief) formoterol fumarate 20 mcg/2 mL 2 ml inhalation Q12H #720 mL 11/19/23 01/14/24 01/13/24 Rx solution for nebulization (Perforomist) glipizide 10 mg tablet, extended 10 mg PO DAILY #90 tabs 11/19/23 01/14/24 01/13/24 Rx release 24 hr omega-3 acid ethyl esters 1 gram 2 cap PO BID #360 caps 11/19/23 01/14/24 01/13/24 Rx capsule sotalol 120 mg tablet (Sotalol AF) 120 mg PO BID #180 tabs 11/19/23 01/14/24 01/13/24 Rx albuterol sulfate 2.5 mg/3 mL 2.5 mg (3 mL) inhalation Q4H PRN 11/27/23 01/14/24 Unknown Rx (0.083 %) solution for nebulization shortness of breath or wheezing #180 mL nitroglycerin 0.4 mg sublingual 0.4 mg sublingual Q5M #25 tabs 11/29/23 01/14/24 Unknown Rx tablet prednisone 5 mg tablet 5 mg PO DAILY #30 tabs 12/10/23 01/14/24 01/13/24 Rx spironolactone 25 mg tablet 25 mg PO QAM #90 tabs 12/10/23 01/14/24 01/13/24 Rx enalapril maleate 5 mg tablet 2.5 mg (1/2 x 5 mg) PO DAILY #1 tab 12/19/23 01/14/24 01/13/24 Rx levofloxacin 750 mg tablet 750 mg PO DAILY #10 tabs 01/13/24 01/14/24 01/13/24 Rx metformin 500 mg tablet,extended See Rx Instructions .Route .COMPLEX 01/14/24 01/14/24 01/13/24 History release 24 hr Allergies Allergy/AdvReac Type Severity Reaction Status Date / Time oxytetracycline Allergy Unknown hives Verified 01/14/24 04:44 [From Terramycin] PFSH Acute 2 PFSH: Medical History BPH (benign prostatic hyperplasia) Diabetes mellitus with hyperglycemia Essential hypertension Hyperlipidemia, mixed COPD (chronic obstructive pulmonary disease) CAD (coronary artery disease) History of cardiac arrest 03/26/[address] Surgical History History of implantable cardiac defibrillator (ICD) Had 2 producers 2010 and 2019 History of heart artery stent two different times Family History Father CAD (coronary artery disease) Hypertension Mother CAD (coronary artery disease) Diabetes Sister Cancer Eye Stroke Brother Cancer Lung brain Denies family history of Chronic kidney disease (CKD) Anesthesia complication Bleeding disorder Social History Smoking and tobacco/nicotine status: current some day tobacco/nicotine user Second hand smoke exposure: No Alcohol intake: current Alcohol intake frequency: 0-2 Drinks per Day Alcohol type: beer Substance/Drug Use: unknown Adopted: No Caregiver/support person: No Lives independently: Yes Household members: spouse Housing: House Marital status: Number of children: 3 service: No Current occupational status: retired Pets and animals: Yes Pets & animals: farm animals Do you think of yourself as: Straight/Heterosexual Current gender identity: Male Vitals/I&O/Wt Last Vital Signs Temp 97.9 F 01/14/24 04:37 Pulse 71 01/14/24 07:55 Resp 16 01/14/24 07:46 BP 160/71 01/14/24 07:30 Pulse Ox 94 01/14/24 07:46 O2 Del Method Nasal Cannula 01/14/24 07:46 O2 Flow Rate 2 01/14/24 07:46 Weight last 48 hrs Weight 175 lb Physical Exam 2 Narrative: General: Comfortably male, resting in ER gurney, nasal cannula in place, alert and oriented, conversing appropriately, speech appropriate. HEENT: Head atraumatic, normocephalic, to visual inspection. PERRL, neck supple thyromegaly noted. CV: Regular rate and rhythm, S1-S2 noted, no murmurs rubs or gallops noted. Pulm: Inspiratory and expiratory wheezing noted in upper and lower lobes bilaterally. GI: Abdomen soft, nontender, bowel sounds active in all quadrants. Extremities: Capillary<2 seconds, no extremity swelling or edema noted. Skin: Small 2 to 3 mm excoriation noted on patient's abdomen, otherwise normal. Data 01/14/24 04:49 01/14/24 04:49 Other Labs: ABG: pH?7.33, pCO2?49.1, pO2?74. Anion gap: 21.6. Troponin T baseline: 14 Troponin T 120: 19.6 BNP: 426 TSH: Pending Chest x-ray: Personally reviewed, pacemaker in place with leads leading to the ventricles, lungs clear bilaterally, mild hyper inflation noted, mild diaphragm flattening noted?most likely significant of chronic COPD/emphysema. EKG: Personally reviewed, shows normal rate, and a paced rhythm, with pacer spikes. Last A1c, 11/19/2023?6.7. A&P Assessment and plan (1) COPD with acute exacerbation: Patient has a history of chronic COPD, with exacerbation in the past. He seen by his family practice nurse practitioner for shortness of breath, was given a dexamethasone injection, prednisone prescription, and Levaquin prescription. He reports having to use albuterol multiple times yesterday, and reports taking 3 doses of nitroglycerin for chest discomfort related to his coughing. He reports he has had elevated heart rate most likely due to the albuterol. He had a similar exacerbation about a month ago, for which she was on Augmentin and steroids. He is a current smoker. Physical exam shows inspiratory and expiratory wheezing bilaterally. EKG was performed in the ED, shows normal rhythm and paced rhythm, troponins at baseline showed no elevation, and only mild change at 2 hours. ABG shows a pCO2 of 49.1, slightly elevated. Chest x- ray shows clear bilateral lung cervantes, with mild hyperinflation's, and mild bilateral diaphragm flattening. Patient presentation highly suggestive of COPD exacerbation. Patient given aspirin, DuoNeb, albuterol, lisinopril, tactile, and Pulmicort in the ED. ? Solu-Medrol 60 mg, IV push, every 12 hours ? Budesonide 0.5 mg, nebulized, twice daily ? DuoNeb, 3 mL, nebulized, every 4 hours ? Continue Levaquin 750 mg, p.o. daily ? Titrate oxygen to maintain O2 above 92%, do not over oxygenate due to patient history of COPD. Return patient back to home baseline on no oxygen. ?CBC/CMP, magnesium, TSH ordered (2) Hypoxia: Patient has history of COPD, presents to the ED with shortness of breath, productive cough, chest cover related to coughing. ? See above treatment for COPD. ? Titrate oxygen therapy. ? May obtain ABG again if clinically indicated. (3) Palpitations: Patient reports that due to his current COPD exacerbation h he has uses albuterol multiple times, and may have overused his albuterol. He is a similar palpitations in the past after using albuterol, and says this feels same. ?Telemetry monitoring ?Sotalol 120 mg, p.o. twice daily ?Plan to interrogate pacemaker. ?CBC/CMP in the morning, magnesium, and TSH ordered. (4) Chest pain: Patient has a history of heart disease, with multiple stent placements, and pacemaker placement in 2011. He was noted that in 2012 his pacemaker fired due to a shockable rhythm. Patient also has a history of hyperlipidemia. Will plan to continue his home medications. ?ASA 81 mg, p.o. daily ?Atorvastatin 40 mg, p.o. ?Plan to interrogate pacemaker. (5) Tobacco dependency: Patient is a current everyday smoker, although he says he is starting to reduce his smoking. He says he smokes about 1 pack/week, last cigarette was about 2 days ago. ? Will continue to monitor for nicotine withdrawal. (6) Essential hypertension: Patient has a history of hypertension, managed at home with multiple hypertensive medications which include spironolactone and enalapril. Continues home hypertensive medications. ?Lisinopril 10 mg, p.o. ?Spironolactone 25 mg, p.o., a.m. daily (7) Diabetes mellitus with hyperglycemia: Patient has a history of diabetes, managed at home with glipizide and metformin. Will hold glipizide and metformin this hospital stay. Will manage with sliding scale insulin. ?Sliding scale insulin ?Consistent carb diet ?Hypoglycemia protocol in place. ?[id number] glucose testing, AC/HS. Qualifiers: Diabetes mellitus intermission coordinator insulin use: without half-way use Diabetes mellitus type: type 2 Qualified Code(s): E11.65 - Type 2 diabetes mellitus with hyperglycemia Plan Multiple other medical conditions as outlined in the patient history. Lovenox and SCD for DVT prophylaxis. Full code, no objections to blood. Attestations 2 Medical Necessity Statement*: Patient will need greater than 2 midnight stay for treatment of acute COPD exacerbation. Coding Level of Care Code 18543 Diagnoses COPD with acute exacerbation J44.1 Hypoxia R09.02 Palpitations R00.2 Chest pain R07.9 Tobacco dependency F17.200 Essential hypertension I10 Type 2 diabetes mellitus with hyperglycemia, without long-term current use of insulin E11.65 Diabetes mellitus intermission coordinator insulin use: without intermission coordinator use Diabetes mellitus type: type 2 Documented by User: Scott Nieves MD 01/14/24 10:44 Providers/Chief Complaint 2 Chief Complaint: Chest Pains History of Present Illness Harlan Diaz is a 73 year old male who presents to the ED today with chest discomfort and cough with productive sputum, onset approximately 2 months prior. He said his cough has been so bad that has been causing him chest discomfort. He said his chest discomfort got worse yesterday for which he took 3 nitroglycerin, after which he decided he needed to come to the hospital. He has seen his family practice provider, JAKOB Godinez, and she had given him a injection of Decadron, and a prescription of levofloxacin and prednisone. According to her note he had been on Augmentin in the months prior for similar symptoms. He also reports feeling chest palpitations/increased heart rate, but he believes this might be due to his albuterol, as he is just feeling in the past after taking too much albuterol. He reports that he had overdone his albuterol yesterday. Patient is current smoker. He denies any sick contacts. Denies any home oxygen use. He denies any headache, changes in vision, fevers, chills, nausea, vomiting, constipation, diarrhea, or extremity concerns. Symptoms of difficulty breathing cough, wheezing had been worse in the 2 to 3 days prior to arrival at the emergency department. Patient medical history significant for COPD, heart disease, essential hypertension, hyperlipidemia, diabetes, BPH, and a pacemaker placement in 2011. He reports that in 2012 he , that which is pacemaker defibrillator had fired. Surgical history is significant for pacemaker placement and stents. Patient was given aspirin, DuoNeb, albuterol, lisinopril, Aldactone, DuoNeb, and Pulmicort in the ED. Review of Systems 2 GI: Denies: abdominal pain, nausea, vomiting, hematochezia or melena Medications/Allergies Home Medications Medication Instructions Recorded Confirmed Last Taken Type aspirin 81 mg tablet,delayed 81 mg PO DAILY 09/18/22 01/14/24 01/13/24 History release Nebulizer #1 ea 08/19/23 01/14/24 Unknown Rx albuterol sulfate 90 mcg/actuation 2 puff inhalation Q4H PRN 08/19/23 01/14/24 Unknown Rx aerosol inhaler shortness of breath or wheezing #25.5 grams atorvastatin 80 mg tablet 80 mg PO DAILY #90 tabs 11/19/23 01/14/24 01/13/24 Rx budesonide 0.5 mg/2 mL suspension 0.5 mg (2 mL) inhalation BID #720 11/19/23 01/14/24 01/13/24 Rx for nebulization (Pulmicort) mL finasteride 5 mg tablet (Proscar) 5 mg PO DAILY #90 tabs 11/19/23 01/14/24 01/13/24 Rx fluticasone propionate 50 1 spray intranasal Q12H #32 grams 11/19/23 01/14/24 01/13/24 Rx mcg/actuation nasal spray,suspension (Flonase Allergy Relief) formoterol fumarate 20 mcg/2 mL 2 ml inhalation Q12H #720 mL 11/19/23 01/14/24 01/13/24 Rx solution for nebulization (Perforomist) glipizide 10 mg tablet, extended 10 mg PO DAILY #90 tabs 11/19/23 01/14/24 01/13/24 Rx release 24 hr omega-3 acid ethyl esters 1 gram 2 cap PO BID #360 caps 11/19/23 01/14/24 01/13/24 Rx capsule sotalol 120 mg tablet (Sotalol AF) 120 mg PO BID #180 tabs 11/19/23 01/14/24 01/13/24 Rx albuterol sulfate 2.5 mg/3 mL 2.5 mg (3 mL) inhalation Q4H PRN 11/27/23 01/14/24 Unknown Rx (0.083 %) solution for nebulization shortness of breath or wheezing #180 mL nitroglycerin 0.4 mg sublingual 0.4 mg sublingual Q5M #25 tabs 11/29/23 01/14/24 Unknown Rx tablet prednisone 5 mg tablet 5 mg PO DAILY #30 tabs 12/10/23 01/14/24 01/13/24 Rx spironolactone 25 mg tablet 25 mg PO QAM #90 tabs 12/10/23 01/14/24 01/13/24 Rx enalapril maleate 5 mg tablet 2.5 mg (1/2 x 5 mg) PO DAILY #1 tab 12/19/23 01/14/24 01/13/24 Rx levofloxacin 750 mg tablet 750 mg PO DAILY #10 tabs 01/13/24 01/14/24 01/13/24 Rx metformin 500 mg tablet,extended See Rx Instructions .Route .COMPLEX 01/14/24 01/14/24 01/13/24 History release 24 hr Allergies Allergy/AdvReac Type Severity Reaction Status Date / Time oxytetracycline Allergy Unknown hives Verified 01/14/24 04:44 [From Terramycin] PFSH Acute 2 PFSH: Medical History BPH (benign prostatic hyperplasia) Diabetes mellitus with hyperglycemia Essential hypertension Hyperlipidemia, mixed COPD (chronic obstructive pulmonary disease) CAD (coronary artery disease) History of cardiac arrest 03/26/[address] Surgical History History of implantable cardiac defibrillator (ICD) Had 2 producers 2010 and 2019 History of heart artery stent two different times Family History Father CAD (coronary artery disease) Hypertension Mother CAD (coronary artery disease) Diabetes Sister Cancer Eye Stroke Brother Cancer Lung brain Denies family history of Chronic kidney disease (CKD) Anesthesia complication Bleeding disorder Social History Smoking and tobacco/nicotine status: current some day tobacco/nicotine user Second hand smoke exposure: No Alcohol intake: current Alcohol intake frequency: 0-2 Drinks per Day Alcohol type: beer Substance/Drug Use: unknown Adopted: No Caregiver/support person: No Lives independently: Yes Household members: spouse Housing: House Marital status: Number of children: 3 service: No Current occupational status: retired Pets and animals: Yes Pets & animals: farm animals Do you think of yourself as: Straight/Heterosexual Current gender identity: Male Physical Exam 2 Narrative: General: Comfortably male, resting in ER gurney, nasal cannula in place, alert and oriented, conversing appropriately, speech appropriate. HEENT: Head atraumatic, normocephalic, to visual inspection. PERRL, neck supple thyromegaly noted. CV: Regular rate and rhythm, S1-S2 noted, no murmurs rubs or gallops noted. Pulm: Inspiratory and expiratory wheezing noted in upper and lower lobes bilaterally. GI: Abdomen soft, nontender, bowel sounds active in all quadrants. Extremities: Capillary<2 seconds, no extremity swelling or edema noted. Skin: Small 2 to 3 mm excoriation noted on patient's abdomen, otherwise normal. Neuro no obvious focal deficits. Data 01/14/24 04:49 01/14/24 04:49 A&P Assessment and plan (1) COPD with acute exacerbation: Patient has a history of chronic COPD, with exacerbation in the past. He seen by his family practice nurse practitioner for shortness of breath, was given a dexamethasone injection, prednisone prescription, and Levaquin prescription. He reports having to use albuterol multiple times yesterday, and reports taking 3 doses of nitroglycerin for chest discomfort related to his coughing. He reports he has had elevated heart rate most likely due to the albuterol. He had a similar exacerbation about a month ago, for which she was on Augmentin and steroids. He is a current smoker. Physical exam shows inspiratory and expiratory wheezing bilaterally. EKG was performed in the ED, shows normal rhythm and paced rhythm, troponins at baseline showed no elevation, and only mild change at 2 hours. ABG shows a pCO2 of 49.1, slightly elevated. Chest x- ray shows clear bilateral lung cervantes, with mild hyperinflation's, and mild bilateral diaphragm flattening. Patient presentation highly suggestive of COPD exacerbation. Patient given aspirin, DuoNeb, albuterol, lisinopril, tactile, and Pulmicort in the ED. ? Solu-Medrol 60 mg, IV push, every 12 hours ? Budesonide 0.5 mg, nebulized, twice daily ? DuoNeb, 3 mL, nebulized, every 4 hours ? Continue Levaquin 750 mg, p.o. daily. This is already been initiated in the last 1 to 2 days. ? Titrate oxygen to maintain O2 above 92%, do not over oxygenate due to patient history of COPD. Return patient back to home baseline on no oxygen. ?CBC/CMP, magnesium, TSH ordered (2) Hypoxia: (3) Palpitations: (4) Chest pain: Patient has a history of heart disease, with multiple stent placements, and pacemaker placement in 2011. He was noted that in 2012 his pacemaker fired due to a shockable rhythm. Patient also has a history of hyperlipidemia. Will plan to continue his home medications. ?ASA 81 mg, p.o. daily ?Atorvastatin 40 mg, p.o. ?Plan to interrogate pacemaker. Nuclear stress test in the morning. It appears this had been contemplated by cardiology secondary to use of nitroglycerin and recurrent chest discomfort as an outpatient as well. Obtain echocardiogram (5) Tobacco dependency: Patient is a current everyday smoker, although he says he is starting to reduce his smoking. He says he smokes about 1 pack/week, last cigarette was about 2 days ago. ? Will continue to monitor for nicotine withdrawal. Encourage abstinence (6) Essential hypertension: (7) Diabetes mellitus with hyperglycemia: Qualifiers: Diabetes mellitus intermission coordinator insulin use: without intermission coordinator use Diabetes mellitus type: type 2 Qualified Code(s): E11.65 - Type 2 diabetes mellitus with hyperglycemia Diagnoses COPD with acute exacerbation J44.1 Hypoxia R09.02 Palpitations R00.2 Chest pain R07.9 Tobacco dependency F17.200 Essential hypertension I10 Type 2 diabetes mellitus with hyperglycemia, without long-term current use of insulin E11.65 Diabetes mellitus half-way insulin use: without intermission coordinator use Diabetes mellitus type: type 2
[2024-01-14] MEDS: levoFLOXacin 750 mg Tablet PO (08:37)
[2024-01-14] MEDS: finasteride 5 mg Tablet PO (08:37)
[2024-01-14] MEDS: atorvastatin 40 mg Tablet PO (08:37)
[2024-01-14] MEDS: methylPREDNISolone sod succ 125 mg/2 mL INJ 60 MG IVP ×2 (08:38→21:12)
[2024-01-14] MEDS: enoxaparin 40 mg/0.4 mL Syringe SUBCUT (08:38)
[2024-01-14 09:44] LABS: Magnesium 1.7 mg/dL (1.7-2.3); Thyroid Stimulating Hormone 0.56 uIU/mL (0.27-4.20)
[2024-01-14] MEDS: sotalol 80 mg Tablet 120 MG PO ×2 (09:54→17:56)
--- NOTE | 2024-01-14 10:02 | PC.NURSE ---
PATIENT PACEMAKER INTERROGATED, JONES PACEMAKER.
--- NOTE | 2024-01-14 10:32 | ECG_ITS ---
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 Measurements Intervals [place] Rate: 71 P: 10 IN: 164 QRS: 238 QRSD: 103 T: 36 QT: 442 QTc: 482 Interpretive Statements ELECTRONIC VENTRICULAR PACEMAKER-A sensed,V paced rhythm ABNORMAL RHYTHM ECG Compared to ECG 01/14/2024 07:07:08 No significant changes Electronically Signed On 01-14-2024 23:04:57 CDT by Conner Woody M.D. [email or web address]
--- NOTE | 2024-01-14 10:43 | ECG_ITS ---
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 Interpretive Statements NAME OF STUDY: LEXISCAN SESTAMIBI STRESS TEST INDICATION: Chest Pain, PROCEDURE: At the baseline, the EKG revealed a sensed V paced rhythm. The baseline heart was 73 bpm with a blood pressue of 141/89 mm of Hg Lexiscan was infused over a period of 20 seconds. A total of 0.4 milligrams of Lexiscan was infused. The stress phase was continued for a total of 5 minutes. Heart rate at the end of the stress phase was 77 bpm with a blood pressure 114/85 mm of Hg. The EKG at the peak infusion revealed no significant changes. Sestamibi was injected 20 seconds after the Lexiscan infusion. Heart rate at the end of the recovery phase was 75 bpm with a blood pressure of 125/83 mm of Hg. CONCLUSION: 1. No significant EKG changes with the LexiScan infusion. Because of the pacing artifact, EKG response to the infusion is difficult to interpret 2. No LexiScan induced chest pain or cardiac arrhythmia 3. Normal blood pressure and heart rate response 4. Sestamibi/sestamibi perfusion scan pending; see separate report. Electronically Signed On 01-18-2024 13:14:57 CDT by Conner Woody M.D. [email or web address]
--- NOTE | 2024-01-14 10:43 | USCV_ITS ---
Harlan Diaz Age: 73 Gender: M : 1950 Exam Date: 01/14/2024 13:36 Ordering Phys: Scott Nieves MD Technologist: JAY Exam Location: [facility] [place] Indication: CHEST PAIN BP: 201 / 83 HR: 78 Rhythm: Sinus Technical Quality: Suboptimal MEASUREMENTS (Male / Female) Normal Values 2D ECHO LV Diastolic Diameter PLAX 4.7 cm 4.2 - 5.9 / 3.9 - 5.3 cm IVS Diastolic Thickness 1.4 cm 0.6 - 1.0 / 0.6 - 0.9 cm IVS Systolic Thickness 2.5 cm LVPW Diastolic Thickness 2.0 cm 0.6 - 1.0 / 0.6 - 0.9 cm LVPW Systolic Thickness 2.2 cm LVOT Diameter 2.0 cm LV Ejection Fraction 2D Teich 61.6 % LV Ejection Fraction MOD 2C 64.9 % LV Ejection Fraction 2C AL 67.8 % RA Systolic Volume 4C AL 13.4 ml RA Systolic Volume 4C MOD 12.1 ml LA Sys Volume AL 27.2 cm cubed LA Sys Volume Index AL 13.7 cm cubed/m squared Aorta at Sinotubular Diameter 2.5 cm IVC Diameter 1.3 cm M-MODE LA Ao Ratio MM 1.2 AV Cusp Separation MM 1.4 cm DOPPLER AV Peak Velocity 128.0 cm/s LVOT Peak Velocity 104.0 cm/s AV Area Cont Eq vti 2.4 cm squared AV Area Cont Eq pk 2.6 cm squared MV Peak Velocity 115.0 cm/s MV Area PHT 4.2 cm squared Mitral E to A Ratio 1.0 TR Peak Velocity 133.0 cm/s TR Peak Gradient 7.1 mmHg TR Mean Velocity 78.0 cm/s TR Mean Gradient 3.2 mmHg TR Velocity Time Integral 34.7 cm TV Peak E Velocity 70.0 cm/s Right Atrial Pressure 3.0 mmHg Pulmonary Artery Systolic Pressu 10.1 mmHg PV Peak Velocity 110.0 cm/s RV Ejection Time 0.3 s FINDINGS Left Ventricle Normal left ventricular size and systolic function, EF 65%.no regional wall motion abnormalities. Right Ventricle The right ventricle is normal in size and function. Right Atrium The right atrium is normal in size. Left Atrium The left atrium is normal in size. Mitral Valve No gross abnormalities noted Aortic Valve No gross abnormalities noted Tricuspid Valve Trace tricuspid valve regurgitation. Pulmonic Valve Pulmonic valve not well visualized. Pericardium Normal pericardium without effusion. Aorta Normal ascending aorta dimension. IVC The inferior vena cava appears normal. CONCLUSIONS Normal left ventricular size and systolic function, EF 65%. No regional wall motion abnormalities. Normal cardiac chamber sizes. No significant stenotic or regurgitant lesions. Estimated PA pressure within normal limits There is no pericardial effusion. Compared to the study from 11/27/2022, there may not be significant change Dr Conner Woody MD [facility] (Electronically Signed) Final Date: 14 Jan 2024 20:47 S
[2024-01-14 11:44] LABS: Troponin 5 6HR 26.48 ng/L (0-15)
[2024-01-14 11:46] LABS: Troponin 5 6HR Delta 12.48 ng/L (0-12)
[2024-01-14 12:03] LABS: Glucose Point of Care 170 mg/dL (70-110)
[2024-01-14 17:17] LABS: Glucose Point of Care 249 mg/dL (70-110)
[2024-01-14 20:42] LABS: Glucose Point of Care 174 mg/dL (70-110)
[2024-01-14] MEDS: guaiFENesin 600 mg Tablet PO (21:28)
[2024-01-15] VITALS (59 sets, daily range): BP systolic 96–197; BP diastolic 54–90; PULSE 64–91; RESP 16–27; TEMP 36.4–36.8; O2SAT 86–98
[2024-01-15 04:08] LABS: Basophils % 0.2 %; Hematocrit 45.1 % (37-53); Lymphocytes # 0.8 10^3/uL (0.8-4.8); Lymphocytes % 6.1 %; Mean Corpuscular HGB Conc 32.4 g/dL (30-55); Mean Corpuscular Hemoglobin 28.7 pg (27-33); Mean Corpuscular Volume 88.6 fl (82-101); Mean Platelet Volume 8.7 fL (7.4-10.4); Monocytes # 0.8 10^3/uL (0.2-0.9); Monocytes % 6.9 %; Neutrophils # 10.54 10^3/uL (1.8-7.7); Neutrophils % 86.1 %; Nucleated Red Blood Cells % 0 %; Platelet Count 240 10^3/cmm (157-399); Red Blood Count 5.09 10^6/uL (3.85-5.65); White Blood Count 12.23 10^3/uL (3.29-11.43)
[2024-01-15 04:30] LABS: Alanine Aminotransferase 17 U/L (0-41); Albumin Level 4.1 g/dL (3.5-5.2); Alkaline Phosphatase 67 U/L (40-130); Anion Gap 15.6 (5-19); Aspartate Amino Transferase 15 U/L (0-40); Blood Urea Nitrogen 18 mg/dL (8-23); Calcium 9.1 mg/dL (8.5-10.5); Carbon Dioxide 30 mmol/L (22-29); Chloride 93 mmol/L (98-107); Creatinine Clr Calc Pharmacy 88.8514; Globulin 3.3 g/dL (1.3-4.6); Glucose 175 mg/dL (65-115); Magnesium 1.9 mg/dL (1.7-2.3); Osmolality Calculated 284 mOsm/kg (285-295); Potassium 4.6 mmol/L (3.5-5.1); Sodium 134 mmol/L (136-145); Total Bilirubin 0.4 mg/dL (0.15-1.2); Total Protein 7.4 g/dL (6.6-8.7)
[2024-01-15] MEDS: levoFLOXacin 750 mg Tablet PO (05:42)
[2024-01-15 06:19] LABS: Glucose Point of Care 172 mg/dL (70-110)
[2024-01-15] MEDS: aminophylline 25 mg/mL SDV 10 mL IVP (07:28)
[2024-01-15] MEDS: regadenoson 0.4 Mg/5 ml Syringe 0.400000000000000022 MG IVP (07:28)
--- NOTE | 2024-01-15 08:00 | NMCV_ITS ---
NM ana m perf SPECT r/s* [id number] Harlan Diaz Age: 73 Gender: M : 1950 Exam Date: 01/15/2024 06:33 Ordering Phys: Scott Nieves MD Technologist: BEREKET Mosley Exam Location: [facility] Indications: CHEST PAIN STRESS TEST Please see separate stress test report in [facility] for full findings IMAGE PROTOCOL Rest/Stress 1 Lexiscan Day Radiopharmaceutical Dose (mCi) Administration Site Administered by Rest: Tc-99m 10.6 IV BEREKET Chen Sestamibi Stress:Tc-99m 32.6 IV BEREKET Chen Sestamibi Rest: 15-Jan-2024 60 Discovery 630 Stress: 15-Jan-2024 30 Discovery 630 0.4mg Lexiscan. Supine position only as patient was unable to lay prone. SPECT RESULTS Technical Quality: Excellent Raw Data Analysis: Normal Image Corrections: No attenuation or motion correction applied Summed Stress Score: 2 Summed Rest Score: 1 Summed Difference Score: 1 PERFUSION FINDINGS Small area of moderately decreased tracer uptake in the apical inferior wall region with subtle reversibility based on the polar plot. With the SPECT imaging, no significant reversibility was noted FUNCTIONAL RESULTS (calculated via Gated SPECT) Stress Image LV EF (%): 62 Stress EDV (mL):78 TID: 1.02 Stress ESV (mL):30 FUNCTIONAL FINDINGS: Segmental wall motion analysis revealing no gross wall motion abnormalities IMPRESSIONS 1. Myocardial perfusion imaging revealing small area of moderately decreased tracer uptake in the apical inferior wall region with a subtle area reversibility suggesting myocardial scarring with a subtle area of possible preinfarction ischemia, in the distribution of the right coronary artery. Because of the inconsistency with the SPECT imaging, the positive predictive value of this finding is a low. 2. Normal LV ejection fraction of 62%. 3. LV wall motion analysis revealing no gross wall motion abnormalities. 4. Normal LV volume No similar previous studies are available for comparison Dr Conner Woody MD LOCATED WITHIN [facility] (Electronically Signed) Final Date: 15 Jan 2024 13:30 S
--- NOTE | 2024-01-15 08:34 | P.PN_ITS ---
Subjective 2 Subjective: Mr. Claros had gone for negative this morning, reported that he was unable to lie on his stomach for the second part of the echo. After further conversation with him this morning, he revealed that he is short of breath at home quite frequently, requiring multiple breaks while exerting himself. No acute events overnight, reports that he feels better today, and he is breathing better today. He reports that most likely his chest discomfort was due to the albuterol, as he felt this discomfort again while taking albuterol inpatient. Spouse at bedside agrees that Mr. Claros seems to have had shortness of breath for extended period of time around the house, he may need supplemental oxygen at home. They both seemed agreeable to possible home oxygen. Medications: Reviewed: Yes Vitals/I&O/Wt Last Vital Signs Temp 97.9 F 01/15/24 08:00 Pulse 68 01/15/24 08:00 Resp 24 H 01/15/24 08:00 BP 108/61 01/15/24 08:00 Pulse Ox 91 01/15/24 08:00 O2 Del Method Room Air 01/15/24 08:00 O2 Flow Rate 3 01/15/24 03:57 FiO2 2 01/14/24 09:56 01/14/24 01/15/24 01/15/24 22:59 06:59 14:59 Intake Total 460 / 460 Balance 460 / 460 Weight last 48 hrs Weight 175 lb Physical Exam 2 Narrative: General: Comfortably male, resting in ER [place], nasal cannula in place, alert and oriented, conversing appropriately, speech appropriate. HEENT: Head atraumatic, normocephalic, to visual inspection. PERRL, neck supple thyromegaly noted. CV: Regular rate and rhythm, S1-S2 noted, no murmurs rubs or gallops noted. Pulm: Mild inspiratory and expiratory wheezing noted bilaterally, improved. GI: Abdomen soft, nontender, bowel sounds active in all quadrants. Extremities: Capillary<2 seconds, no extremity swelling or edema noted. Skin: Small 2 to 3 mm excoriation noted on patient's abdomen, otherwise normal. Data 01/15/24 03:45 01/15/24 03:45 Other Labs: ABG: pH?7.33, pCO2?49.1, pO2?74. Anion gap: 21.6. Troponin T baseline: 14 Troponin T 120: 19.6 BNP: 426 TSH: Pending Chest x-ray: Personally reviewed, pacemaker in place with leads leading to the ventricles, lungs clear bilaterally, mild hyper inflation noted, mild diaphragm flattening noted?most likely significant of chronic COPD/emphysema. EKG: Personally reviewed, shows normal rate, and a paced rhythm, with pacer spikes. Last A1c, 11/19/2023?6.7. A&P Assessment and plan (1) COPD with acute exacerbation: Patient has a history of chronic COPD, with exacerbation in the past. He seen by his family practice nurse practitioner for shortness of breath, was given a dexamethasone injection, prednisone prescription, and Levaquin prescription. He reports having to use albuterol multiple times yesterday, and reports taking 3 doses of nitroglycerin for chest discomfort related to his coughing. He reports he has had elevated heart rate most likely due to the albuterol. He had a similar exacerbation about a month ago, for which she was on Augmentin and steroids. He is a current smoker. Physical exam shows inspiratory and expiratory wheezing bilaterally. EKG was performed in the ED, shows normal rhythm and paced rhythm, troponins at baseline showed no elevation, and only mild change at 2 hours. ABG shows a pCO2 of 49.1, slightly elevated. Chest x- ray shows clear bilateral lung cervantes, with mild hyperinflation's, and mild bilateral diaphragm flattening. Patient presentation highly suggestive of COPD exacerbation. Patient given aspirin, DuoNeb, albuterol, lisinopril, tactile, and Pulmicort in the ED. ? Solu-Medrol 60 mg, IV push, every 12 hours ? Budesonide 0.5 mg, nebulized, twice daily ? DuoNeb, 3 mL, nebulized, every 4 hours ? Continue Levaquin 750 mg, p.o. daily. This is already been initiated in the last 1 to 2 days. ? Titrate oxygen to maintain O2 above 92%, do not over oxygenate due to patient history of COPD. Return patient back to home baseline on no oxygen. - Current magnesium: 1.9 - TSH: 0.56 Patient looks much improved this morning, and reports improvement in breathing. Physical exam shows improvement in his lung sounds. He does not have significant inspiratory or expiratory wheezing as he did during admission. Further conversation with the patient today reviewed the possible need for home oxygen. He reports having shortness of breath while performing activities of daily living. -Continue to monitor, seeing improvement in patient breathing. -Possible discharge tomorrow ? Arrange for home oxygen if patient is agreeable. (2) Hypoxia: Patient has history of COPD, presents to the ED with shortness of breath, productive cough, chest cover related to coughing. ? See above treatment for COPD. ? Titrate oxygen therapy. ? May obtain ABG again if clinically indicated. Improved O2 saturation today, patient was on 3 L nasal cannula overnight. ? Consider home oxygen therapy if patient is agreeable. (3) Palpitations: Patient reports that due to his current COPD exacerbation h he has uses albuterol multiple times, and may have overused his albuterol. He is a similar palpitations in the past after using albuterol, and says this feels same. ?Telemetry monitoring ?Sotalol 120 mg, p.o. twice daily ?Plan to interrogate pacemaker. ?CBC/CMP ordered -TSH: 0.56 -Magnesium: 1.9 Patient reports improved chest discomfort, and reduced palpitations, however he continues to feel them during his albuterol treatments. He reports he has used albuterol 3-4 times per day. -Consider discharging patient with scheduled ICS plus LABA, and albuterol as needed and only. (4) Chest pain: Patient has a history of heart disease, with multiple stent placements, and pacemaker placement in 2011. He was noted that in 2012 his pacemaker fired due to a shockable rhythm. Patient also has a history of hyperlipidemia. Will plan to continue his home medications. ?ASA 81 mg, p.o. daily ?Atorvastatin 40 mg, p.o. ?Plan to interrogate pacemaker. Nuclear stress test in the morning. It appears this had been contemplated by cardiology secondary to use of nitroglycerin and recurrent chest discomfort as an outpatient as well. Echocardiogram reveals no significant changes from previous echo, with 65% ejection fraction per cardiology. Stress test conducted this morning: Pending. (5) Tobacco dependency: Patient is a current everyday smoker, although he says he is starting to reduce his smoking. He says he smokes about 1 pack/week, last cigarette was about 2 days ago. ? Will continue to monitor for nicotine withdrawal. Encourage abstinence (6) Essential hypertension: Patient has a history of hypertension, managed at home with multiple hypertensive medications which include spironolactone and enalapril. Continues home hypertensive medications. ?Lisinopril 10 mg, p.o. ?Spironolactone 25 mg, p.o., a.m. daily -Patient had few elevated blood pressures throughout stay, will continue to monitor, may consider adding another anti-hypertensive agent if patient continues to have elevated blood pressure (7) Diabetes mellitus with hyperglycemia: Patient has a history of diabetes, managed at home with glipizide and metformin. Will hold glipizide and metformin this hospital stay. Will manage with sliding scale insulin. ?Sliding scale insulin ?Consistent carb diet ?Hypoglycemia protocol in place. ?[id number] glucose testing, AC/HS. Qualifiers: Diabetes mellitus type: type 2 Diabetes mellitus senior living insulin use: without senior living use Qualified Code(s): E11.65 - Type 2 diabetes mellitus with hyperglycemia Plan Multiple other medical conditions as outlined in the patient history. Lovenox and SCD for DVT prophylaxis. Full code, no objections to blood. Coding Level of Care Code Acute Code for [facility] Diagnoses COPD with acute exacerbation J44.1 Hypoxia R09.02 Palpitations R00.2 Chest pain R07.9 Tobacco dependency F17.200 Essential hypertension I10 Type 2 diabetes mellitus with hyperglycemia, without long-term current use of insulin E11.65 Diabetes mellitus type: type 2 Diabetes mellitus senior living insulin use: without senior living use
--- NOTE | 2024-01-15 08:47 | PC.CHAP ---
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 [] Patient/Family/Request visit [] Outpatient visit [] Follow-up visit [] Physician referral [] Code/Alert [] Routine visit [] Staff referral [] Actively dying [] Patient sleeping [] Family support [] [] Out of room [] Palliative care [] [x] Receiving care in room [] Pre-surgical visit [] Trauma [] Long length of stay [] ICU visit [] Other: Relational/Emotional Strength [] Patient feels connected with others/family/visitors/staff [] Distress [] Loneliness/isolation [] Abandonment Spirituality of Patient [] Person of Nathaly [] Attends Orthodox of their Nathaly [] Believes in Prayer [] Reads Bible or Orthodox materials [] 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 [] Prayer [] Active listening [] Non-anxious presence [] Spiritual/emotional support [] Crisis/trauma care [] Spiritual counseling [] Bereavement support [] Provided bereavement packet [] Provided Bible/devotional materials [] Provided toy/stuffed animal, coloring book to patient or family member [] Provided Communion [] Anointing/[place] [] Salvation [] Completed spiritual assessment [] Other: Impact on Illness or Injury [] Angry [] Fearful [] Anxious [] Often cries [] Exhaustion [] Unable to work [] Unable to attend advent [] Unable to walk/stand [] Unable to read [] Unable to drive [] Unable to eat/drink [] Unable to sleep [] Unable to be with family [] Patient intubated [] Other: Summary Time spent with patient
[2024-01-15] MEDS: methylPREDNISolone sod succ 125 mg/2 mL INJ 60 MG IVP (10:53)
[2024-01-15] MEDS: guaiFENesin 600 mg Tablet PO (10:54)
[2024-01-15] MEDS: aspirin 81 mg EC Tablet PO (10:55)
[2024-01-15] MEDS: sotalol 80 mg Tablet 120 MG PO (10:55)
[2024-01-15] MEDS: ipratropium-albuterol 3 mL Neb INHALATION ×2 (11:04→15:09)
[2024-01-15 11:45] LABS: Glucose Point of Care 123 mg/dL (70-110)
--- NOTE | 2024-01-15 13:58 | PM.DCS ---
Discharge Providers Date of Admission: 01/14/24 07:41 Date of Discharge: January 15, 2024 Attending Provider at Admission: Scott Nieves MD Attending Provider at Discharge: Scott Nieves MD Primary Care Provider: JOSEPH Sanchez Diagnoses at Discharge Discharge Diagnosis (1) COPD with acute exacerbation: Status: Acute (2) Hypoxia: Status: Acute (3) Palpitations: Status: Acute (4) Chest pain: Status: Acute (5) Tobacco dependency: Status: Acute (6) Essential hypertension: Status: Chronic (7) Diabetes mellitus with hyperglycemia: Status: Chronic Qualifiers: Diabetes mellitus type: type 2 Diabetes mellitus mcfp insulin use: without mcfp use Qualified Code(s): E11.65 - Type 2 diabetes mellitus with hyperglycemia Reason for Visit Reason for Visit: Chest Pains Hospital Course Hospital Course Patient is a 73-year-old white male who presented with palpitations and shortness of breath. He had recently been diagnosed with a COPD exacerbation possible pneumonia and placed on Levaquin. He was worried he had used quite a few albuterol treatments prior to coming in. On arrival he required some oxygen, and was actively wheezing. EKG did not show any ST elevation or overall concerns. He was placed in the hospital on IV steroids, frequent breathing treatments. Levaquin that had already been started was continued although no overt pneumonia was noted. His ICD was interrogated, which showed no concerning arrhythmias. An echocardiogram was performed which demonstrated normal ejection fraction. No wall motion abnormalities were noted. Serial troponins were done which drifted up slightly from 14-27. This was thought to be likely secondary to his COPD exacerbation but for this reason a nuclear stress test was done. This demonstrated myocardial scarring apical inferior wall with a subtle area of the reversibility. Patient indicates this is where his prior myocardial infarction was at that he received stenting for in the distant past. Imdur was added to his regimen. He will continue his aspirin, statin. We will complete his treatment for COPD exacerbation. He was very much wanting to go home and it was thought reasonable to discharge him home as he had had no recurrent chest discomfort. He has been short of breath so for some time, has significant COPD, and continued smoking. He will be screened for home oxygen prior to discharge and I suspect he will need 2 to 3 L on discharge. He was encouraged not to smoke. Both him and his were present for discharge instructions, and agreed with plan. They were able to ask questions. He will follow-up with his primary care provider 3 to 5 days, cardiology 2 weeks. Physical Exam Narrative: General exam no distress Neck is supple Cardiovascular regular rate and rhythm, no murmur Lungs clear but with diminished breath sounds at the bases Abdomen is soft Extremities no cyanosis clubbing or edema Discharge Data Studies Completed and Pending Completed Studies During Hospitalization Category Date Time Status Sestamibi Stress Test Request Routine Exams 01/14/24 10:43 Draft XR chest 1V portable [id number] Stat Exams 01/14/24 04:40 Completed NM ana m perf SPECT r/s* [id number] Routine Nuc Med 01/15/24 08:00 Completed CV. echo complete* [id number] Routine Ultrasound 01/14/24 10:43 Completed Radiology Impressions Chest X-Ray 01/14/24 04:40 IMPRESSION: 1. Mild emphysema. No mass or nodule. 2. Mild atherosclerosis aorta. Laboratory Results WBC 12.23 10^3/uL (3.29-11.43) H 01/15/24 03:45 RBC 5.09 10^6/uL (3.85-5.65) 01/15/24 03:45 Hgb 14.60 g/dL (11.27-16.99) 01/15/24 03:45 Hct 45.1 % (37-53) 01/15/24 03:45 MCV 88.6 fl (82-101) 01/15/24 03:45 MCH 28.7 pg (27-33) 01/15/24 03:45 MCHC 32.4 g/dL (30-55) 01/15/24 03:45 RDW 15.0 % (12.1-15.1) 01/15/24 03:45 Plt Count 240 10^3/cmm (157-399) 01/15/24 03:45 MPV 8.7 fL (7.4-10.4) 01/15/24 03:45 Neut % (Auto) 86.1 % 01/15/24 03:45 Lymph % (Auto) 6.1 % 01/15/24 03:45 [place] % (Auto) 6.9 % 01/15/24 03:45 Eos % (Auto) 0.0 % 01/15/24 03:45 Baso % (Auto) 0.2 % 01/15/24 03:45 Neut # (Auto) 10.54 10^3/uL (1.8-7.7) H 01/15/24 03:45 Lymph # (Auto) 0.8 10^3/uL (0.8-4.8) 01/15/24 03:45 [place] # (Auto) 0.8 10^3/uL (0.2-0.9) 01/15/24 03:45 Eos # (Auto) 0.0 10^3/uL (0.0-0.8) 01/15/24 03:45 Baso # (Auto) 0.0 10^3/uL (0.0-0.1) 01/15/24 03:45 Nucleated RBC % (auto) 0 % 01/15/24 03:45 Nucleated RBCs # 0.0 /100WBC 01/15/24 03:45 Specimen Type Arterial 01/14/24 04:54 Sample Site Brachial, left 01/14/24 04:54 ABG pH 7.33 (7.35-7.45) L 01/14/24 04:54 ABG pCO2 49.1 mmHg (35-45) H 01/14/24 04:54 ABG pO2 74.0 mmHg (80.0-100.0) L 01/14/24 04:54 ABG PO2/FiO2 Ratio 0 01/14/24 04:54 ABG HCO3 25.6 mmol/L (22-26) 01/14/24 04:54 ABG O2 Saturation 92.8 01/14/24 04:54 ABG Base Excess -1.0 mmol/L (-2.0-2.0) 01/14/24 04:54 Antonio Test Pos 01/14/24 04:54 A-a O2 Gradient 8.2 mmHg (5-10) 01/14/24 04:54 Hematocrit 45.4 % (42-52) 01/14/24 04:54 Hgb O2 Saturation 92.0 % (95-100) L 01/14/24 04:54 Carboxyhemoglobin 0.5 %THgb (0.4-20.1) 01/14/24 04:54 Methemoglobin 0.3 % (0.4-1.5) L 01/14/24 04:54 Total Hemoglobin 14.8 g/dL (14-18) 01/14/24 04:54 Sodium 137.0 mmol/L (131-143) 01/14/24 04:54 Potassium 4.2 mmol/L (3.5-5.0) 01/14/24 04:54 Glucose 177.0 mg/dL (70-115) H 01/14/24 04:54 Ionized Calcium 1.3 mmol/L (1.1-1.4) 01/14/24 04:54 O2 Delivery Device Nc 01/14/24 04:54 O2 Liters/Min 2.0 % 01/14/24 04:54 FiO2 28.0 % 01/14/24 04:54 Commercial Trailer Truck Driver ID [email or web address] 01/14/24 04:54 Sodium 134 mmol/L (136-145) L 01/15/24 03:45 Potassium 4.6 mmol/L (3.5-5.1) 01/15/24 03:45 Chloride 93 mmol/L (98-107) L 01/15/24 03:45 Carbon Dioxide 30 mmol/L (22-29) H 01/15/24 03:45 Anion Gap 15.6 (5-19) 01/15/24 03:45 BUN 18 mg/dL (8-23) 01/15/24 03:45 Creatinine 0.7 mg/dL (0.7-1.2) 01/15/24 03:45 GFR Calculation Not Reportable 01/15/24 03:45 Glucose 175 mg/dL (65-115) H 01/15/24 03:45 POC Glucose 123 mg/dL (70-110) H 01/15/24 11:38 Calculated Osmolality 284 mOsm/kg (285-295) L 01/15/24 03:45 Calcium 9.1 mg/dL (8.5-10.5) 01/15/24 03:45 Magnesium 1.9 mg/dL (1.7-2.3) 01/15/24 03:45 Total Bilirubin 0.4 mg/dL (0.15-1.2) 01/15/24 03:45 AST 15 U/L (0-40) 01/15/24 03:45 ALT 17 U/L (0-41) 01/15/24 03:45 Alkaline Phosphatase 67 U/L (40-130) 01/15/24 03:45 Troponin T Baseline 14 ng/L (0-15) 01/14/24 04:49 Troponin T 120 Minute 19.16 ng/L (0-15) H 01/14/24 06:24 Delta Troponin T 5.16 ABS# (0-10) 01/14/24 06:24 Troponin T Hi Sens 6Hr 26.48 ng/L (0-15) H 01/14/24 11:20 Troponin T Hi Sens 6Hr Delta 12.48 ng/L (0-12) H* 01/14/24 11:20 NT-Pro-B Natriuret Pep 426 pg/mL (0-125) H 01/14/24 04:49 Total Protein 7.4 g/dL (6.6-8.7) 01/15/24 03:45 Albumin 4.1 g/dL (3.5-5.2) 01/15/24 03:45 Globulin 3.3 g/dL (1.3-4.6) 01/15/24 03:45 TSH 0.56 uIU/mL (0.27-4.20) 01/14/24 04:49 Vitals Last Vital Signs Temp 98.3 F 01/15/24 11:39 Pulse 74 01/15/24 11:39 Resp 24 H 01/15/24 11:39 BP 187/80 01/15/24 11:39 Pulse Ox 89 L 01/15/24 11:39 O2 Del Method Room Air 01/15/24 11:39 O2 Flow Rate 3 01/15/24 03:57 FiO2 2 01/14/24 09:56 Discharge Plan Discharge Patient Disposition: Home Condition: Stable Prescriptions: New isosorbide mononitrate 30 mg Tablet Extended Release 24 Hr 30 mg PO DAILY Qty: 30 0RF prednisone 20 mg tablet 40 mg PO DAILY 5 Days Qty: 10 0RF Continued aspirin 81 mg tablet,delayed release (DR/EC) 81 mg PO DAILY albuterol sulfate 90 mcg/actuation HFA aerosol inhaler 2 puff inhalation Q4H PRN (Reason: shortness of breath or wheezing) Qty: 25.5 1RF (DME) Nebulizer See Rx Instructions .Route .MEDSUPPLY Qty: 1 0RF Rx Instructions: As directed atorvastatin 80 mg tablet 80 mg PO DAILY Qty: 90 1RF budesonide [Pulmicort] 0.5 mg/2 mL suspension for nebulization 0.5 mg inhalation BID Qty: 720 1RF finasteride [Proscar] 5 mg tablet 5 mg PO DAILY Qty: 90 1RF fluticasone propionate [Flonase Allergy Relief] 50 mcg/actuation spray,suspension 1 spray intranasal Q12H Qty: 32 1RF Rx Instructions: administer into each nostril formoterol fumarate [Perforomist] 20 mcg/2 mL solution for nebulization 2 ml inhalation Q12H Qty: 720 1RF glipizide 10 mg tablet extended release 24hr 10 mg PO DAILY Qty: 90 1RF omega-3 acid ethyl esters 1 gram capsule 2 cap PO BID Qty: 360 1RF sotalol [Sotalol AF] 120 mg tablet 120 mg PO BID Qty: 180 1RF albuterol sulfate 2.5 mg /3 mL (0.083 %) solution for nebulization 2.5 mg inhalation Q4H PRN (Reason: shortness of breath or wheezing) Qty: 180 5RF prednisone 5 mg tablet 5 mg PO DAILY Qty: 30 0RF spironolactone 25 mg tablet 25 mg PO QAM Qty: 90 1RF enalapril maleate 5 mg tablet 2.5 mg PO DAILY Qty: 1 0RF Hold Instructions: Doctor's Order levofloxacin 750 mg tablet 750 mg PO DAILY Qty: 10 0RF nitroglycerin 0.4 mg tablet, sublingual 0.4 mg sublingual Q5M Qty: 25 2RF metformin 500 mg tablet extended release 24 hr See Rx Instructions .ROUTE .COMPLEX Rx Instructions: TAKE 1 TABLET IN THE MORNING AND 2 TABLETS IN THE PM. Discharge Orders: Discharge Order (Routine); Ordered 01/15/24 Ordered By: Scott Nieves Referrals: Kaveh Craig FNP-C [Primary Care Provider] - 01/23/24 1:00 pm (Please keep your appointment as scheduled. Thank you! ) Felicia Zarate FNP [Nurse Practitioner] - 2 weeks Discharge Diet: Cardiac and Diabetic Discharge Activity: Increase activity as tolerated Patient Instructions: Opioid Safety Activity Restrictions/Additional Instructions: Take all medicine as prescribed Home oxygen evaluation prior to discharge Follow-up with your primary care provider 3 to 5 days, cardiology 2 weeks Return for any recurrent chest discomfort Note new medications include Imdur 30 mg daily, prednisone 40 mg daily for 5 days then resume your oral prednisone 5 mg daily. Finish course of Levaquin. 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
[2024-01-15] MEDS: isosorbide mononitrate ER 30 mg Tablet PO (14:10)
--- NOTE | 2024-01-15 16:30 | PC.NURSE ---
Discharge Note Patient discharged to [home] via [w/c to POV] accompanied by [his ]. Discharge instructions reviewed with patient and/or medicare sales representative. Mobile pharmacy medications and/or prescriptions provided. Belongings/home medications returned.
== END 2024-01-15 16:30 | disposition home or self-care (01) ==
LOC: ER 07:21 → ER IP 07:42 → CSU 09:52
PROVIDERS: Emergency Medicine; Admitting Provider Internal Medicine; Emergency Provider Family Medicine; PCP Nurse Practitioner; Visit Provider Internal Medicine
DX: J44.1 Chronic obstructive pulmonary disease with (acute) exacerbation (principal); R09.02 Hypoxemia; R00.2 Palpitations; R07.9 Chest pain, unspecified; E11.65 Type 2 diabetes mellitus with hyperglycemia; I10 Essential (primary) hypertension; F17.210 Nicotine dependence, cigarettes, uncomplicated; I70.0 Atherosclerosis of aorta; Z95.810 Presence of automatic (implantable) cardiac defibrillator; Z98.61 Coronary angioplasty status
CPT/HCPCS: 36415; 36416; 36600; 71045; 78452; 80051; 80053; 82330; 82805; 82962; 83735; 83880; 84443; 84484; 85025; 93005; 93017; 93306; 94640; 94760; 96365; 96372; 96375; 99285; A9500; G0378; J0280; J1650; J1815; J2785; J2919; J7613; J7626

== ENCOUNTER → 2024-01-21 14:01 | Outpatient (BNVA) | payer MEDICARE, SELFPAY | PROVIDERS: PCP Nurse Practitioner; Visit Provider Internal Medicine | DX: E11.51 Type 2 diabetes mellitus with diabetic peripheral angiopathy without gangrene (principal); E11.65 Type 2 diabetes mellitus with hyperglycemia; Z79.84 Long term (current) use of oral hypoglycemic drugs; Z95.810 Presence of automatic (implantable) cardiac defibrillator; I10 Essential (primary) hypertension; E78.2 Mixed hyperlipidemia; J43.8 Other emphysema; I25.10 Atherosclerotic heart disease of native coronary artery without angina pectoris; Z87.891 Personal history of nicotine dependence | CPT/HCPCS: 99214 ==

== ENCOUNTER → 2024-01-27 09:00 | Outpatient (BNVA) | payer MEDICARE, SELFPAY | PROVIDERS: PCP Nurse Practitioner; Visit Provider Nurse Practitioner Family | DX: J02.9 Acute pharyngitis, unspecified (principal) | CPT/HCPCS: 87070; 87880 ==

== ENCOUNTER 2024-01-29 03:45 | Emergency (ER) | payer MEDICARE, SELFPAY ==
[2024-01-29] VITALS (7 sets, daily range): BP systolic 150–179; BP diastolic 57–74; PULSE 70–81; RESP 18–24; TEMP 36.8; O2SAT 90–95; BMI 25.8
--- NOTE | 2024-01-29 03:55 | XRR_ITS ---
PROCEDURE INFORMATION: Exam: XR Chest Exam date and time: 01/29/2024 4:08 AM Age: 73 years old Clinical indication: Angina; Prior surgery; Surgery date: 6+ months; Surgery type: Pacemaker; Additional info: Chest pain dyspnea TECHNIQUE: Imaging protocol: Radiologic exam of the chest. Views: 1 view. COMPARISON: CR (CHEST, ) 01/14/2024 4:52 AM FINDINGS: Tubes, catheters and devices: Multi lead cardiac device projects over the left chest. Lungs: No focal consolidation. Pleural spaces: No large pleural effusion. No distinct pneumothorax. Heart/Mediastinum: Cardiomediastinal silhouette is midline and normal in size. Bones/joints: No acute osseous findings. XR/XR chest 1V portable [id number] IMPRESSION: No acute cardiopulmonary findings.
--- NOTE | 2024-01-29 03:55 | ECG_ITS ---
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 Measurements Intervals Mutual Rate: 77 P: 39 UT: 171 QRS: 232 QRSD: 104 T: 56 QT: 389 QTc: 442 Interpretive Statements ELECTRONIC VENTRICULAR PACEMAKER-he A-sensed V paced rhythm ABNORMAL RHYTHM ECG Compared to ECG 01/14/2024 10:32:08 No significant changes Electronically Signed On 01-29-2024 18:09:46 CDT by Conner Woody M.D. [email or web address]
--- NOTE | 2024-01-29 04:02 | ED_ITS ---
Documented by User: Andrea Gupta DO 01/29/24 04:36 HPI - Chest Pain 2 General: Chief Complaint: Chest Pain Stated Complaint: chest pain sob Time Seen by Provider: 01/29/24 03:54 History of Present Illness: Patient presents to the ER with complaints of substernal chest pressure that woke him from sleep earlier this morning. Patient took 2 nitro and the pain went from a 7 down to a 5. Pain does not radiate the pain is not reproducible with palpation. Patient denies any diaphoresis or shortness of breath. They are changing his blood pressure medicines around to help lower his blood pressure. Patient requires 2 to 3 L of oxygen per nasal cannula at home. Patient is currently on 2 L and his O2 sat is 93%. During patient's last hospital stay he was discharged on a 5-day course of prednisone that he would have finished about a week ago Review of Systems 2 General: Reports: 10 or more systems reviewed and unremarkable except in HPI and below PFSH ED 2 PFSH: Medical History BPH (benign prostatic hyperplasia) Diabetes mellitus with hyperglycemia Essential hypertension Hyperlipidemia, mixed COPD (chronic obstructive pulmonary disease) CAD (coronary artery disease) History of cardiac arrest 03/26/[address] Surgical History History of implantable cardiac defibrillator (ICD) Had 2 producers 2010 and 2019 History of heart artery stent two different times Family History Father CAD (coronary artery disease) Hypertension Mother CAD (coronary artery disease) Diabetes Sister Cancer Eye Stroke Brother Cancer Lung brain Denies family history of Chronic kidney disease (CKD) Anesthesia complication Bleeding disorder Social History Smoking and tobacco/nicotine status: former use of tobacco/nicotine Second hand smoke exposure: No Alcohol intake: current Alcohol intake frequency: 0-2 Drinks per Day Alcohol type: beer Substance/Drug Use: unknown Adopted: No Caregiver/support person: No Lives independently: Yes Household members: spouse Housing: House Marital status: Number of children: 3 service: No Current occupational status: retired Pets and animals: Yes Pets & animals: farm animals Do you think of yourself as: Straight/Heterosexual Current gender identity: Male Physical Exam 2 Const: COMMON NORMALS: no acute distress, average body habitus, patient oriented x3, no limitations, healthy appearing, alert and well nourished HENMT: COMMON NORMALS: normocephalic, atraumatic, hearing grossly normal bilaterally, external ears normal, Normal external nose present, moist oral mucous membranes and oropharynx normal HEAD & SCALP: normocephalic and atraumatic NOSE: Normal external nose present EXTERNAL EAR: Yes external ears normal Neck/C-Spine: COMMON NORMALS: no JVD Chest: COMMONS NORMALS: normal inspection of the chest and normal palpation of entire chest wall Resp: COMMON NORMALS: normal respiratory effort, No retractions, No use of accessory muscles and clear to auscultation bilaterally AUSCULTATION: clear to auscultation bilaterally Cardio: COMMON NORMALS: no JVD, regular rate, regular rhythm, S1 normal heart sound present, S2 normal heart sound present, No gallops present (Cardio), No clicks present (Cardio), No murmurs present (Cardio) and No rub (Cardio) R ATE: regular rate RHYTHM: regular rhythm HEART SOUNDS: S1 normal heart sound present and S2 normal heart sound present GI: COMMON NORMALS: Normal to inspection, nondistended, normoactive bowel sounds present, Soft to palpation, non-tender and No hepatosplenomegaly present PALPATION: Yes Soft to palpation and Yes No hepatosplenomegaly present Neuro: COMMON NORMALS: patient oriented x3 SENSORIUM/ORIENTATION: Yes alert Course 2 Vital Signs: Vital signs: Vital Signs Temperature 98.2 F 01/29/24 03:47 Pulse Rate 70 01/29/24 06:15 Respiratory Rate 24 H 01/29/24 04:58 Blood Pressure 150/57 01/29/24 06:15 Pulse Oximetry 92 01/29/24 06:15 Oxygen Delivery Me thod Nasal Cannula 01/29/24 06:15 Oxygen Flow Rate 2 01/29/24 04:33 MDM - Chest Pain Differential Diagnosis Unlikely acute massive pulmonary embolism, acute respiratory failure, acute myocardial infarction, cardiac arrest or sudden cardiac Medical Records I reviewed the patient's medical records. Lab Data I reviewed the patient's lab results. 01/29/24 03:55 01/29/24 03:55 Radiology Impressions Chest X-Ray 01/29/24 03:55 IMPRESSION: No acute cardiopulmonary findings. Laboratory Results WBC 21.48 10^3/uL (3.29-11.43) H 01/29/24 03:55 RBC 5.28 10^6/uL (3.85-5.65) 01/29/24 03:55 Hgb 15.10 g/dL (11.27-16.99) 01/29/24 03:55 Hct 47.4 % (37-53) 01/29/24 03:55 MCV 89.8 fl (82-101) 01/29/24 03:55 MCH 28.6 pg (27-33) 01/29/24 03:55 MCHC 31.9 g/dL (30-55) 01/29/24 03:55 RDW 14.9 % (12.1-15.1) 01/29/24 03:55 Plt Count 247 10^3/cmm (157-399) 01/29/24 03:55 MPV 8.9 fL (7.4-10.4) 01/29/24 03:55 Neut % (Auto) 83.5 % 01/29/24 03:55 Lymph % (Auto) 4.2 % 01/29/24 03:55 [place] % (Auto) 5.7 % 01/29/24 03:55 Eos % (Auto) 5.4 % 01/29/24 03:55 Baso % (Auto) 0.5 % 01/29/24 03:55 Neut # (Auto) 17.94 10^3/uL (1.8-7.7) H 01/29/24 03:55 Lymph # (Auto) 0.9 10^3/uL (0.8-4.8) 01/29/24 03:55 [place] # (Auto) 1.2 10^3/uL (0.2-0.9) H 01/29/24 03:55 Eos # (Auto) 1.2 10^3/uL (0.0-0.8) H 01/29/24 03:55 Baso # (Auto) 0.1 10^3/uL (0.0-0.1) 01/29/24 03:55 Nucleated RBC % (auto) 0 % 01/29/24 03:55 Nucleated RBCs # 0.0 /100WBC 01/29/24 03:55 PT 12.10 SECONDS (12.1-14.9) 01/29/24 03:55 INR 0.87 (0.8-1.2) 01/29/24 03:55 Sodium 134 mmol/L (136-145) L 01/29/24 03:55 Potassium 4.6 mmol/L (3.5-5.1) 01/29/24 03:55 Chloride 97 mmol/L (98-107) L 01/29/24 03:55 Carbon Dioxide 23 mmol/L (22-29) 01/29/24 03:55 Anion Gap 18.6 (5-19) 01/29/24 03:55 BUN 16 mg/dL (8-23) 01/29/24 03:55 Creatinine 0.6 mg/dL (0.7-1.2) L 01/29/24 03:55 GFR Calculation Not Reportable 01/29/24 03:55 Glucose 142 mg/dL (65-115) H 01/29/24 03:55 Calculated Osmolality 282 mOsm/kg (285-295) L 01/29/24 03:55 Calcium 9.3 mg/dL (8.5-10.5) 01/29/24 03:55 Total Bilirubin 0.6 mg/dL (0.15-1.2) 01/29/24 03:55 AST 11 U/L (0-40) 01/29/24 03:55 ALT 14 U/L (0-41) 01/29/24 03:55 Alkaline Phosphatase 60 U/L (40-130) 01/29/24 03:55 Troponin T Baseline 21 ng/L (0-15) H 01/29/24 03:55 Troponin T 120 Minute 20.58 ng/L (0-15) H 01/29/24 05:38 Delta Troponin T -0.42 ABS# (0-10) L 01/29/24 05:38 NT-Pro-B Natriuret Pep 483 pg/mL (0-125) H 01/29/24 03:55 Total Protein 6.9 g/dL (6.6-8.7) 01/29/24 03:55 Albumin 4.3 g/dL (3.5-5.2) 01/29/24 03:55 Globulin 2.6 g/dL (1.3-4.6) 01/29/24 03:55 All radiology interpretation(s) finalized by discharge EKG Data EKG 1: I personally reviewed and interpreted this EKG as follows: EKG interpretation date: 01/29/24 EKG interpretation time: 03:49 Prior EKG tracings: available for review Interpretation: Ventricular rate 77 bpm, ID interval 171, QRS duration 104, QTc of 421, electronic ventricular pacemaker Discharge Plan Discharge Patient Disposition: Home Clinical Impression: COPD (chronic obstructive pulmonary disease) Chest pain Qualifiers: Chest pain type: other chest pain Qualified Code(s): R07.89 - Other chest pain Condition: Stable Prescriptions: New AirDuo Digihaler 113 mcg-14 mcg/actuation aero powdr breath act w/sensor 1 inh inhalation BID Qty: 1 0RF No Action aspirin 81 mg tablet,delayed release (DR/EC) 81 mg PO DAILY albuterol sulfate 90 mcg/actuation HFA aerosol inhaler 2 puff inhalation Q4H PRN (Reason: shortness of breath or wheezing) Qty: 25.5 1RF (DME) Nebulizer See Rx Instructions .Route .MEDSUPPLY Qty: 1 0RF Rx Instructions: As directed atorvastatin 80 mg tablet 80 mg PO DAILY Qty: 90 1RF finasteride [Proscar] 5 mg tablet 5 mg PO DAILY Qty: 90 1RF fluticasone propionate [Flonase Allergy Relief] 50 mcg/actuation spray,suspension 1 spray intranasal Q12H Qty: 32 1RF Rx Instructions: administer into each nostril glipizide 10 mg tablet extended release 24hr 10 mg PO DAILY Qty: 90 1RF omega-3 acid ethyl esters 1 gram capsule 2 cap PO BID Qty: 360 1RF sotalol [Sotalol AF] 120 mg tablet 120 mg PO BID Qty: 180 1RF Trelegy Ellipta 100-62.5-25 mcg blister with device 1 inh inhalation Q24H Qty: 28 5RF enalapril maleate 10 mg tablet 10 mg PO .Daily AM Qty: 90 1RF Hold Instructions: Doctor's Order albuterol sulfate 2.5 mg /3 mL (0.083 %) solution for nebulization 2.5 mg inhalation Q4H PRN (Reason: shortness of breath or wheezing) Qty: 180 5RF prednisone 5 mg tablet 5 mg PO DAILY Qty: 30 0RF spironolactone 25 mg tablet 25 mg PO QAM Qty: 90 1RF levofloxacin 750 mg tablet 750 mg PO DAILY Qty: 10 0RF nystatin 100,000 unit/mL suspension 5 ml PO TID Qty: 473 0RF Rx Instructions: swish and swallow fluconazole 150 mg tablet 150 mg PO Q3D Qty: 2 0RF cephalexin 500 mg capsule 500 mg PO TID Qty: 30 0RF nitroglycerin 0.4 mg tablet, sublingual 0.4 mg sublingual Q5M Qty: 25 2RF metformin 500 mg tablet extended release 24 hr See Rx Instructions .ROUTE .COMPLEX Rx Instructions: TAKE 1 TABLET IN THE MORNING AND 2 TABLETS IN THE PM. isosorbide mononitrate 30 mg Tablet Extended Release 24 Hr 30 mg PO DAILY Qty: 30 0RF Discharge Orders: Discharge ED (Routine); Ordered 01/29/24 Ordered By: Kali Weaver Referrals: Kaveh Craig, [facility] [Primary Care Provider] - Discharge Diet: Usual diet Discharge Activity: Increase activity as tolerated Patient Instructions: Opioid Safety, Pain Management Activity Restrictions/Additional Instructions: As we discussed while you are in the emergency department we do not find any indication that you are having a heart attack or other serious condition at this time. Your testing was reassuring this morning. We have provided a prescription for a long-acting steroid inhaler to help control your COPD. We recommend make an appointment following up with your regular primary care clinic in approximately 1 week. If you develop any return of sustained chest pain fevers chills or other concerning symptoms you are welcome to return to the emergency department at any time. You should continue all your other usual medications until completed or if there daily medications take them as directed. Coding Level of Care Code ED Brim Pouncer for Harjinderg Fwd Documented by User: Kali Weaver DO 01/29/24 17:56 HPI - Chest Pain 2 General: Chief Complaint: Chest Pain Stated Complaint: chest pain sob Time Seen by Provider: 01/29/24 03:54 [facility] ED 2 PFSH: Medical History BPH (benign prostatic hyperplasia) Diabetes mellitus with hyperglycemia Essential hypertension Hyperlipidemia, mixed COPD (chronic obstructive pulmonary disease) CAD (coronary artery disease) History of cardiac arrest 03/26/[address] Surgical History History of implantable cardiac defibrillator (ICD) Had 2 producers 2010 and 2019 History of heart artery stent two different times Family History Father CAD (coronary artery disease) Hypertension Mother CAD (coronary artery disease) Diabetes Sister Cancer Eye Stroke Brother Cancer Lung brain Denies family history of Chronic kidney disease (CKD) Anesthesia complication Bleeding disorder Social History Smoking and tobacco/nicotine status: former use of tobacco/nicotine Second hand smoke exposure: No Alcohol intake: current Alcohol intake frequency: 0-2 Drinks per Day Alcohol type: beer Substance/Drug Use: unknown Adopted: No Caregiver/support person: No Lives independently: Yes Household members: spouse Housing: House Marital status: Number of children: 3 service: No Current occupational status: retired Pets and animals: Yes Pets & animals: farm animals Do you think of yourself as: Straight/Heterosexual Current gender identity: Male Course 2 Reevaluation(s): Reevaluation #1: This patient was turned over for disposition by Dr. Gupta. Patient was interviewed and examined. Patient with known history of coronary disease last stent placed in 2012 came in with an episode of chest pain that ended approximately 330 this morning. He states that he has been coughing more producing only clear mucus and he thinks that may be a factor in his chest discomfort. He has not had any sustained chest pain since that time. He has known COPD but states he has quit smoking since his last hospitalization on January 14. He did have a sestamibi stress test on January 13 which was unremarkable for any fixed or reversible ischemia according to the written report. He uses a beta agonist as well as a nebulizer with DuoNeb at home. He denies any fevers. He is been taking prednisone since his hospital discharge. He does not take a long-acting steroid. His focused exam reveals him to be in no acute distress vital signs are noted. He talks in complete sentences. His chest is nontender to palpation and his lung cervantes are clear to auscultation. Cardiovascular Alfredo is regular without murmur there is no evidence of JVD. Peripheral pulses are palpable equal and he has no calf tenderness or pedal edema. Chest x-ray is unremarkable for any changes. Serial EKGs obtained here showed a paced rhythm without any ischemic changes. He does have serial troponins which show no change even though they are slightly elevated over the URL. Does have a leukocytosis. Currently stable without any evidence to suggest ACS. I do's reviewed current findings with the patient and spouse and we had a discussion regarding their preferences regarding continued observation versus discharge with home observation. Again we reviewed the fact that with he and his spouse that there does not appear to be any acute change at this time. His preference is to be discharged home. At this point I would like to offer him a prescription for a long-acting steroid to use to help control his COPD symptoms. No evidence of infection at this time clinically or radiographically his leukocytosis cytosis is likely due to his steroid use which she is tapering off and almost completed. We encouraged him and congratulated on his smoking discontinuation. Will have him see his primary care clinic to follow-up regarding whether he can be transition to a combination LABA with long-acting beta agonist and steroid if he tolerates a steroid inhaler singly. Currently he has tried 1 in the past but it was cost prohibitive for him. We also reviewed return precautions in detail. Vital Signs: Vital signs: Vital Signs Temperature 98.2 F 01/29/24 03:47 Pulse Rate 70 01/29/24 06:15 Respiratory Rate 24 H 01/29/24 04:58 Blood Pressure 150/57 01/29/24 06:15 Pulse Oximetry 92 01/29/24 06:15 Oxygen Delivery Me thod Nasal Cannula 01/29/24 06:15 Oxygen Flow Rate 2 01/29/24 04:33 [facility] - Chest Pain Medical Decision Making This patient was seen the overnight physician because of chest pain symptoms that began in the night and last episode was approximately 330 according to the patient. A workup was initiated to establish no evidence of ACS or other worrisome condition again we reviewed the fact that with he and his spouse that there does not appear to be any acute change at this time. His preference is to be discharged home. At this point I would like to offer him a prescription for a long-acting steroid to use to help control his COPD symptoms. No evidence of infection at this time clinically or radiographically his leukocytosis cytosis is likely due to his steroid use which she is tapering off and almost completed. We encouraged him and congratulated on his smoking discontinuation. Will have him see his primary care clinic to follow-up regarding whether he can be transition to a combination LABA with long-acting beta agonist and steroid if he tolerates a steroid inhaler singly. Currently he has tried 1 in the past but it was cost prohibitive for him. We also reviewed return precautions in detail. Lab Data 01/29/24 03:55 01/29/24 03:55 Radiology Impressions Chest X-Ray 01/29/24 03:55 IMPRESSION: No acute cardiopulmonary findings. Laboratory Results WBC 21.48 10^3/uL (3.29-11.43) H 01/29/24 03:55 RBC 5.28 10^6/uL (3.85-5.65) 01/29/24 03:55 Hgb 15.10 g/dL (11.27-16.99) 01/29/24 03:55 Hct 47.4 % (37-53) 01/29/24 03:55 MCV 89.8 fl (82-101) 01/29/24 03:55 MCH 28.6 pg (27-33) 01/29/24 03:55 MCHC 31.9 g/dL (30-55) 01/29/24 03:55 RDW 14.9 % (12.1-15.1) 01/29/24 03:55 Plt Count 247 10^3/cmm (157-399) 01/29/24 03:55 MPV 8.9 fL (7.4-10.4) 01/29/24 03:55 Neut % (Auto) 83.5 % 01/29/24 03:55 Lymph % (Auto) 4.2 % 01/29/24 03:55 [place] % (Auto) 5.7 % 01/29/24 03:55 Eos % (Auto) 5.4 % 01/29/24 03:55 Baso % (Auto) 0.5 % 01/29/24 03:55 Neut # (Auto) 17.94 10^3/uL (1.8-7.7) H 01/29/24 03:55 Lymph # (Auto) 0.9 10^3/uL (0.8-4.8) 01/29/24 03:55 [place] # (Auto) 1.2 10^3/uL (0.2-0.9) H 01/29/24 03:55 Eos # (Auto) 1.2 10^3/uL (0.0-0.8) H 01/29/24 03:55 Baso # (Auto) 0.1 10^3/uL (0.0-0.1) 01/29/24 03:55 Nucleated RBC % (auto) 0 % 01/29/24 03:55 Nucleated RBCs # 0.0 /100WBC 01/29/24 03:55 PT 12.10 SECONDS (12.1-14.9) 01/29/24 03:55 INR 0.87 (0.8-1.2) 01/29/24 03:55 Sodium 134 mmol/L (136-145) L 01/29/24 03:55 Potassium 4.6 mmol/L (3.5-5.1) 01/29/24 03:55 Chloride 97 mmol/L (98-107) L 01/29/24 03:55 Carbon Dioxide 23 mmol/L (22-29) 01/29/24 03:55 Anion Gap 18.6 (5-19) 01/29/24 03:55 BUN 16 mg/dL (8-23) 01/29/24 03:55 Creatinine 0.6 mg/dL (0.7-1.2) L 01/29/24 03:55 GFR Calculation Not Reportable 01/29/24 03:55 Glucose 142 mg/dL (65-115) H 01/29/24 03:55 Calculated Osmolality 282 mOsm/kg (285-295) L 01/29/24 03:55 Calcium 9.3 mg/dL (8.5-10.5) 01/29/24 03:55 Total Bilirubin 0.6 mg/dL (0.15-1.2) 05/22/24 03:55 AST 11 U/L (0-40) 01/29/24 03:55 ALT 14 U/L (0-41) 01/29/24 03:55 Alkaline Phosphatase 60 U/L (40-130) 01/29/24 03:55 Troponin T Baseline 21 ng/L (0-15) H 01/29/24 03:55 Troponin T 120 Minute 20.58 ng/L (0-15) H 01/29/24 05:38 Delta Troponin T -0.42 ABS# (0-10) L 01/29/24 05:38 NT-Pro-B Natriuret Pep 483 pg/mL (0-125) H 01/29/24 03:55 Total Protein 6.9 g/dL (6.6-8.7) 01/29/24 03:55 Albumin 4.3 g/dL (3.5-5.2) 01/29/24 03:55 Globulin 2.6 g/dL (1.3-4.6) 01/29/24 03:55 Discharge Plan Discharge Patient Disposition: Home Clinical Impression: COPD (chronic obstructive pulmonary disease) Chest pain Qualifiers: Chest pain type: other chest pain Qualified Code(s): R07.89 - Other chest pain Condition: Stable Prescriptions: New AirDuo Digihaler 113 mcg-14 mcg/actuation aero powdr breath act w/sensor 1 inh inhalation BID Qty: 1 0RF No Action aspirin 81 mg tablet,delayed release (DR/EC) 81 mg PO DAILY albuterol sulfate 90 mcg/actuation HFA aerosol inhaler 2 puff inhalation Q4H PRN (Reason: shortness of breath or wheezing) Qty: 25.5 1RF (DME) Nebulizer See Rx Instructions .Route .MEDSUPPLY Qty: 1 0RF Rx Instructions: As directed atorvastatin 80 mg tablet 80 mg PO DAILY Qty: 90 1RF finasteride [Proscar] 5 mg tablet 5 mg PO DAILY Qty: 90 1RF fluticasone propionate [Flonase Allergy Relief] 50 mcg/actuation spray,suspension 1 spray intranasal Q12H Qty: 32 1RF Rx Instructions: administer into each nostril glipizide 10 mg tablet extended release 24hr 10 mg PO DAILY Qty: 90 1RF omega-3 acid ethyl esters 1 gram capsule 2 cap PO BID Qty: 360 1RF sotalol [Sotalol AF] 120 mg tablet 120 mg PO BID Qty: 180 1RF Trelegy Ellipta 100-62.5-25 mcg blister with device 1 inh inhalation Q24H Qty: 28 5RF enalapril maleate 10 mg tablet 10 mg PO .Daily AM Qty: 90 1RF Hold Instructions: Doctor's Order albuterol sulfate 2.5 mg /3 mL (0.083 %) solution for nebulization 2.5 mg inhalation Q4H PRN (Reason: shortness of breath or wheezing) Qty: 180 5RF prednisone 5 mg tablet 5 mg PO DAILY Qty: 30 0RF spironolactone 25 mg tablet 25 mg PO QAM Qty: 90 1RF levofloxacin 750 mg tablet 750 mg PO DAILY Qty: 10 0RF nystatin 100,000 unit/mL suspension 5 ml PO TID Qty: 473 0RF Rx Instructions: swish and swallow fluconazole 150 mg tablet 150 mg PO Q3D Qty: 2 0RF cephalexin 500 mg capsule 500 mg PO TID Qty: 30 0RF nitroglycerin 0.4 mg tablet, sublingual 0.4 mg sublingual Q5M Qty: 25 2RF metformin 500 mg tablet extended release 24 hr See Rx Instructions .ROUTE .COMPLEX Rx Instructions: TAKE 1 TABLET IN THE MORNING AND 2 TABLETS IN THE PM. isosorbide mononitrate 30 mg Tablet Extended Release 24 Hr 30 mg PO DAILY Qty: 30 0RF Discharge Orders: Discharge ED (Routine); Ordered 01/29/24 Ordered By: Kali Weaver Referrals: Kaveh Craig, [facility] [Primary Care Provider] - Discharge Diet: Usual diet Discharge Activity: Increase activity as tolerated Patient Instructions: Opioid Safety, Pain Management Activity Restrictions/Additional Instructions: As we discussed while you are in the emergency department we do not find any indication that you are having a heart attack or other serious condition at this time. Your testing was reassuring this morning. We have provided a prescription for a long-acting steroid inhaler to help control your COPD. We recommend make an appointment following up with your regular primary care clinic in approximately 1 week. If you develop any return of sustained chest pain fevers chills or other concerning symptoms you are welcome to return to the emergency department at any time. You should continue all your other usual medications until completed or if there daily medications take them as directed. Coding Level of Care Code ED Brim Pouncer for Sky Watkins
[2024-01-29 04:07] LABS: Basophils # 0.1 10^3/uL (0.0-0.1); Basophils % 0.5 %; Eosinophils # 1.2 10^3/uL (0.0-0.8); Eosinophils % 5.4 %; Hematocrit 47.4 % (37-53); Lymphocytes # 0.9 10^3/uL (0.8-4.8); Lymphocytes % 4.2 %; Mean Corpuscular HGB Conc 31.9 g/dL (30-55); Mean Corpuscular Hemoglobin 28.6 pg (27-33); Mean Corpuscular Volume 89.8 fl (82-101); Mean Platelet Volume 8.9 fL (7.4-10.4); Monocytes # 1.2 10^3/uL (0.2-0.9); Monocytes % 5.7 %; Neutrophils # 17.94 10^3/uL (1.8-7.7); Neutrophils % 83.5 %; Nucleated Red Blood Cells % 0 %; Platelet Count 247 10^3/cmm (157-399); Red Blood Count 5.28 10^6/uL (3.85-5.65); Red Cell Distribution Width 14.9 % (12.1-15.1); White Blood Count 21.48 10^3/uL (3.29-11.43)
[2024-01-29] MEDS: nitroglycerin 1 gm/inch oint Pkt 1 INCH TOPICAL (04:13)
[2024-01-29] MEDS: aspirin 81 mg Chew Tablet 324 MG PO (04:19)
[2024-01-29 04:24] LABS: INR 0.87 (0.8-1.2)
[2024-01-29 04:25] LABS: Troponin(5th) Baseline 21 ng/L (0-15)
[2024-01-29 04:32] LABS: Alanine Aminotransferase 14 U/L (0-41); Albumin Level 4.3 g/dL (3.5-5.2); Alkaline Phosphatase 60 U/L (40-130); Aspartate Amino Transferase 11 U/L (0-40); Blood Urea Nitrogen 16 mg/dL (8-23); Calcium 9.3 mg/dL (8.5-10.5); Carbon Dioxide 23 mmol/L (22-29); Chloride 97 mmol/L (98-107); Globulin 2.6 g/dL (1.3-4.6); Glucose 142 mg/dL (65-115); Osmolality Calculated 282 mOsm/kg (285-295); Sodium 134 mmol/L (136-145); Total Bilirubin 0.6 mg/dL (0.15-1.2); Total Protein 6.9 g/dL (6.6-8.7)
[2024-01-29 04:34] LABS: NT Pro B Type Natriuretic Pept 483 pg/mL (0-125)
[2024-01-29 04:36] LABS: Anion Gap 18.6 (5-19); Creatinine Clr Calc Pharmacy 88.8514; Potassium 4.6 mmol/L (3.5-5.1)
--- NOTE | 2024-01-29 05:01 | PC.NURSE ---
pt antibiotics/ throat pt was having pain/ swelling in his throat and his now on antibiotics for that. his strep test was negative.
--- NOTE | 2024-01-29 05:39 | ECG_ITS ---
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 Measurements Intervals [place] Rate: 72 P: 73 IA: 114 QRS: 172 QRSD: 144 T: 75 QT: 447 QTc: 489 Interpretive Statements ELECTRONIC VENTRICULAR PACEMAKER ABNORMAL RHYTHM ECG Compared to ECG 01/14/2024 10:32:08 No significant changes Electronically Signed On 01-30-2024 0:11:28 CDT by Conner Woody M.D. [id number]
[2024-01-29 06:01] LABS: Troponin 5 2HR 20.58 ng/L (0-15)
[2024-01-29 06:02] LABS: Troponin 5 2HR Delta -0.42 ABS# (0-10)
== END 2024-01-29 07:19 | disposition home or self-care (01) ==
PROVIDERS: Emergency Provider Emergency Medicine; PCP Nurse Practitioner
DX: R07.89 Other chest pain (principal); J44.9 Chronic obstructive pulmonary disease, unspecified; Z87.891 Personal history of nicotine dependence; I10 Essential (primary) hypertension; E11.9 Type 2 diabetes mellitus without complications; Z79.84 Long term (current) use of oral hypoglycemic drugs; Z79.899 Other long term (current) drug therapy
CPT/HCPCS: 71045; 80053; 83880; 84484; 85025; 85610; 93005; 99285

== ENCOUNTER → 2024-03-02 07:57 | Outpatient (BNVA) | payer MEDICARE, SELFPAY | PROVIDERS: PCP Nurse Practitioner; Visit Provider Podiatrist Foot & Ankle Surgery | DX: B35.1 Tinea unguium (principal); I73.9 Peripheral vascular disease, unspecified; R60.9 Edema, unspecified; E11.69 Type 2 diabetes mellitus with other specified complication; Z79.84 Long term (current) use of oral hypoglycemic drugs | CPT/HCPCS: 11721 ==

== ENCOUNTER → 2024-03-24 16:19 | Outpatient (BNVA) | payer MEDICARE, SELFPAY | PROVIDERS: PCP Nurse Practitioner; Visit Provider Nurse Practitioner | DX: E11.65 Type 2 diabetes mellitus with hyperglycemia (principal); E78.2 Mixed hyperlipidemia; R39.11 Hesitancy of micturition; J43.8 Other emphysema; I25.10 Atherosclerotic heart disease of native coronary artery without angina pectoris; J30.89 Other allergic rhinitis; J30.2 Other seasonal allergic rhinitis | CPT/HCPCS: 80053; 80061; 82607; 83036 ==

== ENCOUNTER → 2024-04-14 13:41 | Outpatient (BNVA) | payer MEDICARE, SELFPAY | PROVIDERS: PCP Nurse Practitioner; Visit Provider Internal Medicine | DX: E11.51 Type 2 diabetes mellitus with diabetic peripheral angiopathy without gangrene (principal); Z95.810 Presence of automatic (implantable) cardiac defibrillator; E11.65 Type 2 diabetes mellitus with hyperglycemia; I10 Essential (primary) hypertension; E78.2 Mixed hyperlipidemia; J43.8 Other emphysema; I25.10 Atherosclerotic heart disease of native coronary artery without angina pectoris; R07.89 Other chest pain | CPT/HCPCS: 99214 ==

== ENCOUNTER → 2024-05-04 08:01 | Outpatient (BNVA) | payer MEDICARE, SELFPAY | PROVIDERS: PCP Nurse Practitioner; Visit Provider Podiatrist Foot & Ankle Surgery | DX: B35.1 Tinea unguium (principal); I73.9 Peripheral vascular disease, unspecified; R60.9 Edema, unspecified; E11.69 Type 2 diabetes mellitus with other specified complication; Z79.84 Long term (current) use of oral hypoglycemic drugs | CPT/HCPCS: 11721 ==

== ENCOUNTER 2024-05-23 22:10 | Inpatient (IN) | payer MEDICARE, SELFPAY ==
[2024-05-23 22:16] VITALS: BP 179/73; PULSE 85; RESP 22; TEMP 36.7; O2SAT 92; BMI 26.6
[2024-05-23 22:20] VITALS: BP 142/115; PULSE 98; O2SAT 100
--- NOTE | 2024-05-23 22:20 | ECG_ITS ---
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 Measurements Intervals [place] Rate: 87 P: 56 [place]: 170 QRS: 244 QRSD: 108 T: 40 QT: 374 QTc: 452 Interpretive Statements ELECTRONIC VENTRICULAR PACEMAKER Compared to ECG 01/29/2024 05:39:39 No significant changes Electronically Signed On 05-24-2024 9:15:12 CDT by Kaushal Glover M.D. [id number] f
[2024-05-23 22:30] VITALS: BP 121/94; PULSE 104; O2SAT 95
--- NOTE | 2024-05-23 22:42 | XRR_ITS ---
PROCEDURE INFORMATION: Exam: XR Chest Exam date and time: 05/23/2024 10:47 PM Age: 74 years old Clinical indication: Chest wall pain; Prior surgery; Surgery date: 6+ months; Surgery type: Cardiac stents; Defibulator; Patient HX: Chest pain; TECHNIQUE: Imaging protocol: Radiologic exam of the chest. Views: 1 view. COMPARISON: CR XR chest 1V portable [id number] 01/29/2024 4:08 AM FINDINGS: Tubes, catheters and devices: Stable left chest wall pacemaker/AICD. Lungs: No consolidation. Pleural spaces: No pleural effusion. No pneumothorax. Heart/Mediastinum: No cardiomegaly. Bones/joints: No acute findings. XR/XR chest 1V portable [id number] IMPRESSION: No acute findings.
[2024-05-23 22:53] LABS: Basophils # 0.1 10^3/uL (0.0-0.1); Basophils % 0.8 %; Eosinophils # 1.5 10^3/uL (0.0-0.8); Eosinophils % 12.8 %; Hematocrit 42.6 % (37-53); Lymphocytes # 0.9 10^3/uL (0.8-4.8); Lymphocytes % 7.6 %; Mean Corpuscular HGB Conc 32.4 g/dL (30-55); Mean Corpuscular Hemoglobin 28.6 pg (27-33); Mean Corpuscular Volume 88.2 fl (82-101); Monocytes # 0.7 10^3/uL (0.2-0.9); Monocytes % 5.7 %; Neutrophils # 8.66 10^3/uL (1.8-7.7); Neutrophils % 72.6 %; Nucleated Red Blood Cells % 0 %; Platelet Count 240 10^3/cmm (157-399); Red Blood Count 4.83 10^6/uL (3.85-5.65); Red Cell Distribution Width 13.9 % (12.1-15.1); White Blood Count 11.92 10^3/uL (3.29-11.43)
[2024-05-23 22:54] VITALS: BP 185/80; PULSE 75; RESP 18; O2SAT 94
[2024-05-23 23:05] LABS: INR 0.89 (0.8-1.2)
[2024-05-23 23:06] LABS: Partial Thromboplastin Time 25.7 SECONDS (23.9-36.7)
[2024-05-23 23:14] LABS: Lactic Sepsis W/Reflex 2.5 mmol/L (0.5-2.2)
[2024-05-23 23:16] LABS: Troponin(5th) Baseline 27 ng/L (0-15)
[2024-05-23 23:26] LABS: Alanine Aminotransferase 27 U/L (0-41); Albumin Level 4.5 g/dL (3.5-5.2); Alkaline Phosphatase 70 U/L (40-130); Anion Gap 17.3 (5-19); Aspartate Amino Transferase 18 U/L (0-40); Blood Urea Nitrogen 14 mg/dL (8-23); Calcium 8.7 mg/dL (8.5-10.5); Carbon Dioxide 25 mmol/L (22-29); Chloride 97 mmol/L (98-107); Creatinine Clr Calc Pharmacy 88.6347; Globulin 2.3 g/dL (1.3-4.6); Glucose 216 mg/dL (65-115); NT Pro B Type Natriuretic Pept 173 pg/mL (0-125); Osmolality Calculated 287 mOsm/kg (285-295); Potassium 4.3 mmol/L (3.5-5.1); Sodium 135 mmol/L (136-145); Total Bilirubin 0.5 mg/dL (0.15-1.2); Total Protein 6.8 g/dL (6.6-8.7)
[2024-05-24] VITALS (37 sets, daily range): BP systolic 134–189; BP diastolic 57–105; PULSE 60–90; RESP 13–29; TEMP 36.6; O2SAT 87–100
[2024-05-24 00:38] LABS: Reflex Lactate Order REFLEX LACTIC ORDERD
--- NOTE | 2024-05-24 00:42 | ECG_ITS ---
[facility] Test Date: 2024-05-24 Pat Name: Harlan Diaz Department: Room: Gender: Male Care Coordinator: : 1950 Requested By: Juan Daniel Wheeler Order Number: [id number] Cathy MD: Kaushal Glover M.D. Measurements Intervals [place] Rate: 67 P: 48 MD: 154 QRS: 251 QRSD: 106 T: 37 QT: 423 QTc: 450 Interpretive Statements ELECTRONIC VENTRICULAR PACEMAKER Compared to ECG 05/23/2024 22:14:44 No significant changes Electronically Signed On 05-24-2024 9:20:02 CDT by Kaushal Glover M.D. [id number]
[2024-05-24] MEDS: dexamethasone 4 mg Tablet 10 MG PO (01:06)
--- NOTE | 2024-05-24 01:11 | PC.NURSE ---
Solu Medrol IVP not given. approved.
[2024-05-24 01:27] LABS: Adenovirus Not Detected (NOT DETECT); Chlamydia Pneumoniae Not Detected (NOT DETECT); Coronavirus 229E,HKU1,NL63,OC4 Not Detected (NOT DETECT); Human Metapneumovirus Not Detected (NOT DETECT); Human Rhinovirus/Enterovirus Not Detected (NOT DETECT); Influenza A Not Detected (NOT DETECT); Influenza A H1 Not Detected (NOT DETECT); Influenza A H1-2009 Not Detected (NOT DETECT); Influenza A H3 Not Detected (NOT DETECT); Influenza B Not Detected (NOT DETECT); Mycoplasma Pneumoniae Not Detected (NOT DETECT); Parainfluenza Virus Type 1 Not Detected (NOT DETECT); Parainfluenza Virus Type 2 Not Detected (NOT DETECT); Parainfluenza Virus Type 3 Not Detected (NOT DETECT); Parainfluenza Virus Type 4 Not Detected (NOT DETECT); Respiratory Syncytial Virus A Not Detected (NOT DETECT); Respiratory Syncytial Virus B Not Detected (NOT DETECT)
[2024-05-24 01:41] LABS: SARS-COV-2 Detected (NOT DETECT)
[2024-05-24 01:47] LABS: Troponin 5 2HR 58.47 ng/L (0-15)
[2024-05-24 02:00] LABS: Troponin 5 2HR Delta 31.47 ABS# (0-10)
--- NOTE | 2024-05-24 02:28 | CTR_ITS ---
PROCEDURE INFORMATION: Exam: CTA Chest With Contrast Exam date and time: 05/24/2024 2:41 AM Age: 74 years old Clinical indication: Shortness of breath; Chest pressure; Prior surgery; Surgery date: 6+ months; Surgery type: Coronary stents. Pacer. Patient HX: C/O chest pain with SOB. Elevated troponin. Covid +. ; Additional info: Cp SOB TECHNIQUE: Imaging protocol: Computed tomographic angiography of the chest with contrast. Exam focused on the arteries. 3D rendering (Not supervised by radiologist): MIP and/or 3D reconstructed images were created by the technologist. Radiation optimization: All CT scans at this facility use at least one of these dose optimization techniques: automated exposure control; mA and/or kV adjustment per patient size (includes targeted exams where dose is matched to clinical indication); or iterative reconstruction. Contrast material: OMNI 350; Contrast volume: 59 ml; Contrast route: INTRAVENOUS (IV); COMPARISON: PT PET skull to thigh INIT [id number] 12/17/2023 8:30 AM RADIATION DOSE METRICS: Total DLP (mGy-cm): 384.21 FINDINGS: Tubes, catheters and devices: Left chest wall pacemaker/AICD. Pulmonary arteries: No pulmonary emboli. Aorta: No aortic aneurysm. Lungs: Emphysema with diffuse bronchial wall thickening. No consolidation. Pleural spaces: No pneumothorax. No pleural effusion. Heart: Cardiomegaly. Coronary arteries: Coronary stent. Lymph nodes: Several slightly prominent reactive mediastinal lymph nodes, similar to prior exam. Bones/joints: No acute fracture. Soft tissues: Unremarkable. CT/CT angio chest PE protcl [id number] IMPRESSION: 1. No pulmonary embolism. 2. Background of emphysema with diffuse bronchial wall thickening and no consolidation. Correlate for bronchitis. 3. Cardiomegaly. COMMENTS: The presence of pulmonary emphysema on CT is an independent risk factor for lung cancer. In the absence of a history or active diagnosis of lung cancer, it is recommended that this patient with emphysema be evaluated for enrollment in a low dose CT lung cancer screening program.
--- NOTE | 2024-05-24 02:48 | USCV_ITS ---
EmilyHarlan steele Age: 74 Gender: M : 1950 Exam Date: 05/24/2024 15:24 Ordering Phys: Patricio Lewis MD Technologist: Jasson Cartagena [place] [facility] [place]: chest pain BP: 177 / 70 HR: 64 Rhythm: Sinus Technical Quality: Adequate MEASUREMENTS (Male / Female) Normal Values 2D ECHO LV Diastolic Diameter PLAX 4.1 cm 4.2 - 5.9 / 3.9 - 5.3 cm IVS Diastolic Thickness 1.4 cm 0.6 - 1.0 / 0.6 - 0.9 cm IVS Systolic Thickness 1.7 cm LVPW Diastolic Thickness 1.7 cm 0.6 - 1.0 / 0.6 - 0.9 cm LVPW Systolic Thickness 2.2 cm LVOT Diameter 2.0 cm LV Ejection Fraction 2D Teich 62.8 % LV Ejection Fraction MOD 4C 71.5 % LV Ejection Fraction MOD 2C 66.1 % LV Ejection Fraction 2C AL 65.9 % LA Diameter 3.5 cm RA Systolic Volume 4C AL 32.9 ml RA Systolic Volume 4C MOD 35.2 ml LA Sys Volume AL 37.8 cm cubed LA Sys Volume Index AL 18.8 cm cubed/m squared Aorta at Sinotubular Diameter 2.5 cm IVC Diameter 1.8 cm M-MODE LA Ao Ratio MM 1.4 AV Cusp Separation MM 0.8 cm DOPPLER AV Peak Velocity 159.0 cm/s LVOT Peak Velocity 80.0 cm/s AV Area Cont Eq vti 1.4 cm squared AV Area Cont Eq pk 1.7 cm squared MV Peak Velocity 120.0 cm/s MV Area PHT 4.4 cm squared Mitral E to A Ratio 1.0 TV Peak Velocity 143.5 cm/s TR Peak Velocity 144.0 cm/s TR Peak Gradient 8.3 mmHg TR Mean Velocity 99.0 cm/s TR Mean Gradient 4.7 mmHg TR Velocity Time Integral 43.1 cm PV Peak Velocity 102.0 cm/s RV Ejection Time 0.3 s FINDINGS Left Ventricle Left ventricle is normal in size. LV systolic function is normal with EF of 55-60%. No regional wall motion abnormalities. Right Ventricle Normal in size and function Right Atrium Normal in size Left Atrium Normal in size Mitral Valve Structurally normal mitral valve. Mild mitral regurgitation. Aortic Valve Aortic valve is thickened. No significant stenosis or regurgitation. Tricuspid Valve Insufficient TR jet to calculate RVSP Pulmonic Valve Not well visualized Pericardium Normal Aorta Normal in size IVC Appears to be normal CONCLUSIONS LV systolic function is normal with EF of 55-60% Mild mitral regurgitation Compared to prior echocardiogram from 01/2024, no significant changes are seen. Kaushal Glover MD (Electronically Signed) Final Date: 24 May 2024 18:43 S
[2024-05-24] MEDS: iohexol 350 mg/mL 500 mL Btl (per mL) IV (02:52)
--- NOTE | 2024-05-24 02:54 | PM.HP ---
Providers/Chief Complaint Admitting Physician: Patricio Lewis MD Primary Care Provider: Kaveh Craig, CIRCULATION DIRECTOR-C Chief Complaint: chest pain, sob History of Present Illness Harlan Diaz is a 74 year old male with a past medical history of COPD, quit smoking 8 to 9 months ago, history of CAD status post stenting, hypertension, type 2 diabetes mellitus, history of cardiac arrest, with ICD in place, who presents [facility] due to coughing episode followed by chest pain and shortness of breath. Patient tells me that this evening, he had an episode of a coughing episode, followed by sudden onset shortness of breath and substernal chest pain, he had to use 2 nitro pills before the chest pain abated, does report shortness of breath with exertion, does report chills, no lightheadedness, dizziness, no nausea, no vomiting, no sick contacts, no recent travel, no mopped assist, no calf pain Review of Systems Const: Reports: chills, fatigue and malaise; Denies: fever(s) Card: Reports: chest pain Resp: Reports: dyspnea and non-productive cough Medications/Allergies Home Medications Medication Instructions Recorded Confirmed Last Taken Type aspirin 81 mg tablet,delayed 81 mg PO DAILY 09/18/22 05/04/24 01/13/24 History release Nebulizer #1 ea 08/19/23 05/04/24 Unknown Rx omega-3 acid ethyl esters 1 gram 2 cap PO BID #360 caps 11/19/23 05/04/24 01/13/24 Rx capsule sotalol 120 mg tablet (Sotalol AF) 120 mg PO BID #180 tabs 11/19/23 05/04/24 01/13/24 Rx albuterol sulfate 2.5 mg/3 mL 2.5 mg (3 mL) inhalation Q4H PRN 11/27/23 05/04/24 Unknown Rx (0.083 %) solution for nebulization shortness of breath or wheezing #180 mL nitroglycerin 0.4 mg sublingual 0.4 mg sublingual Q5M #25 tabs 11/29/23 05/04/24 Unknown Rx tablet spironolactone 25 mg tablet 25 mg PO QAM #90 tabs 12/10/23 05/04/24 01/13/24 Rx albuterol sulfate 90 mcg/actuation 2 puff inhalation Q4H PRN 02/11/24 05/04/24 Unknown Rx aerosol inhaler shortness of breath or wheezing #25.5 grams atorvastatin 80 mg tablet 80 mg PO DAILY #90 tabs 03/24/24 05/04/24 Unknown Rx enalapril maleate 10 mg tablet 10 mg PO .Daily AM #90 tabs 03/24/24 05/04/24 Unknown Rx finasteride 5 mg tablet (Proscar) 5 mg PO DAILY #90 tabs 03/24/24 05/04/24 Unknown Rx fluticasone fur. 100 mcg-umeclid 1 inh inhalation Q24H #28 ea 03/24/24 05/04/24 Unknown Rx 62.5 mcg-vilant 25 mcg inhalat.powder (Trelegy Ellipta) fluticasone propionate 50 1 spray intranasal Q12H #32 grams 03/24/24 05/04/24 Unknown Rx mcg/actuation nasal spray,suspension (Flonase Allergy Relief) glipizide 10 mg tablet, extended 10 mg PO DAILY #90 tabs 03/24/24 05/04/24 Unknown Rx release 24 hr isosorbide mononitrate 30 mg 30 mg PO DAILY #90 tabs 03/24/24 05/04/24 Unknown Rx tablet,extended release 24 hr metformin 500 mg tablet,extended See Rx Instructions .Route 03/24/24 05/04/24 Unknown Rx release 24 hr .COMPLEX #270 tabs lidocaine 4 % topical cream 1 applic topical TID PRN pain #15 04/01/24 05/04/24 Unknown Rx grams gabapentin 300 mg capsule See Rx Instructions PO BID #90 caps 04/08/24 05/04/24 Unknown Rx sertraline 50 mg tablet (Zoloft) 50 mg PO DAILY #30 tabs 04/28/24 05/04/24 Unknown Rx Allergies Allergy/AdvReac Type Severity Reaction Status Date / Time oxytetracycline Allergy Unknown hives Verified 05/23/24 22:20 [From Terramycin] PFSH Acute PFSH: Medical History BPH (benign prostatic hyperplasia) Diabetes mellitus with hyperglycemia Essential hypertension Hyperlipidemia, mixed COPD (chronic obstructive pulmonary disease) CAD (coronary artery disease) History of cardiac arrest 03/26/[address] Surgical History History of implantable cardiac defibrillator (ICD) Had 2 producers 2010 and 2019 History of heart artery stent two different times Family History Father CAD (coronary artery disease) Hypertension Mother CAD (coronary artery disease) Diabetes Sister Cancer Eye Stroke Brother Cancer Lung brain Denies family history of Chronic kidney disease (CKD) Anesthesia complication Bleeding disorder Social History Smoking and tobacco/nicotine status: unknown if used tobacco/nicotine Second hand smoke exposure: No Alcohol intake: current Alcohol intake frequency: 0-2 Drinks per Day Alcohol type: beer Substance/Drug Use: unknown Adopted: No Caregiver/support person: No Lives independently: Yes Household members: spouse Housing: House Marital status: Number of children: 3 service: No Current occupational status: retired Pets and animals: Yes Pets & animals: farm animals Do you think of yourself as: Straight/Heterosexual Current gender identity: Male Vitals/I&O/Wt Last Vital Signs Temp 98.1 F 05/23/24 22:16 Pulse 75 05/23/24 22:54 Resp 18 05/23/24 22:54 BP 185/80 05/23/24 22:54 Pulse Ox 94 05/23/24 22:54 O2 Del Method Room Air 05/23/24 22:16 Weight last 48 hrs Weight 81.647 kg Physical Exam Const: COMMON NORMALS: no acute distress and patient oriented x3 HENMT: COMMON NORMALS: normocephalic HEAD & SCALP: normocephalic Eye: COMMON NORMALS: Equal, round and reactive pupils present Neck/C-Spine: COMMON NORMALS: no JVD Lymph: LYMPHATIC: no lymphadenopathy noted Resp: COMMON NORMALS: normal respiratory effort, No retractions and No use of accessory muscles AUSCULTATION: crackles and wheezes Cardio: COMMON NORMALS: no JVD, regular rate, regular rhythm, S1 normal heart sound present and S2 normal heart sound present RATE: regular rate RHYTHM: regular rhythm HEART SOUNDS: S1 normal heart sound present and S2 normal heart sound present GI: COMMON NORMALS: Normal to inspection, nondistended, normoactive bowel sounds present, Soft to palpation and non-tender Extremity: COMMON NORMALS: no calf tenderness and no pedal edema Neuro: COMMON NORMALS: patient oriented x3, CN's II-XII intact bilaterally and moves all extremities Psych: COMMON NORMALS: mental status grossly normal Data 05/23/24 22:36 05/23/24 22:36 Micro: Microbiology 05/23/24 23:15 Blood Culture - Preliminary Blood SPECIMEN COLLECTED 05/23/24 23:13 Blood Culture - Preliminary Blood SPECIMEN COLLECTED A&P Assessment and plan (1) NSTEMI (non-ST elevated myocardial infarction): (2) Pneumonia due to COVID-19 virus: (3) Acute hypoxic respiratory failure: (4) COPD exacerbation: (5) Chest pain: (6) CAD (coronary artery disease): Plan Acute hypoxic respiratory failure ? Multifactorial ? COPD exacerbation ? COVID-19 pneumonia ? Plan ? Monitor respiratory status closely ? Continue Solu-Medrol 40 mg IV push every 8 hours ? DuoNeb ? Start remdesivir 200 mg IV push once, followed by 100 mg IV every 24 hours - CT angiogram of the chest ordered ? Full code Lovenox for DVT prophylaxis Chest pain, NSTEMI - currently chest pain-free ? Continue aspirin ? Continue statin -Serial EKGs, serial troponins, telemetry monitoring ? Therapeutic Lovenox ? Cardiac echo Type 2 diabetes mellitus, low-dose sliding scale Attestations Medical Necessity Statement*: Patient requires hospitalization, inpatient, greater than 2 midnights, for acute hypoxic respiratory failure secondary COVID-19 pneumonia, chest pain, NSTEMI, COPD exacerbation Diagnoses NSTEMI (non-ST elevated myocardial infarction) I21.4 Pneumonia due to COVID-19 virus U07.1; J12.82 Acute hypoxic respiratory failure J96.01 COPD exacerbation J44.1 Chest pain R07.9 CAD (coronary artery disease) I25.10
[2024-05-24] MEDS: enoxaparin 80 mg/0.8 mL Syringe SUBCUT ×2 (03:10→14:29)
[2024-05-24 03:12] LABS: ABG PCO2 45.5 mmHg (35-45); ABG PH Result 7.36 (7.35-7.45); Arterial Blood Gas Hematocrit 40.3 % (42-52); Base Excess ABG -0.3 mmol/L (-2.0-2.0); Blood Gas Allen Test Pos; Blood Gas Operator Identificat CL; Blood Gas Sample Site Radial, right; Blood Gas Sample Type Arterial; HCO3 ABG 25.6 mmol/L (22-26); Oxygen Device NC
[2024-05-24 03:26] LABS: INR 0.94 (0.8-1.2)
[2024-05-24 03:29] LABS: D Dimer 0.72 ug/mLFEU (0-0.59)
[2024-05-24 03:40] LABS: C Reactive Protein 8.3 mg/L (0.0-4.9); Lactic Acid level (Lactate) 2.7 mmol/L (0.5-2.2); Magnesium 1.7 mg/dL (1.7-2.3); Phosphorus 3.6 mg/dL (2.5-4.5); Procalcitonin 0.05 ng/mL (0-0.5)
[2024-05-24 04:12] LABS: Troponin 5 6HR 48.81 ng/L (0-15)
[2024-05-24 04:21] LABS: Troponin 5 6HR Delta 21.81 ng/L (0-12)
--- NOTE | 2024-05-24 04:42 | ECG_ITS ---
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 Measurements Intervals [place] Rate: 65 P: 86 W[place]: 99 QRS: 212 QRSD: 166 T: 90 QT: 510 QTc: 533 Interpretive Statements ELECTRONIC VENTRICULAR PACEMAKER Compared to ECG 05/24/2024 02:11:55 No significant changes Electronically Signed On 05-24-2024 9:18:59 CDT by Kaushal Glover M.D. [email or web address]
--- NOTE | 2024-05-24 05:27 | W.ED.SOB ---
HPI - SOB/Dyspnea General: Chief Complaint: Shortness of Breath/Dyspnea Stated Complaint: chest pain, sob Time Seen by Provider: 05/23/24 22:26 History of Present Illness: HPI Narrative: 74-year-old male with a fairly extensive history of coronary disease. He notes that his last catheterization was probably in 2011. He presents with shortness of breath. He says that yesterday he felt quite well. Shortness of breath developed somewhat suddenly today. He has had a cough today. Some wheezing. No chest pain at home, which was relieved with nitroglycerin, and is no longer present. No fever. Minimal sputum production. Related Data Home Medications Medication Instructions Recorded Confirmed aspirin 81 mg tablet,delayed 81 mg PO DAILY 09/18/22 05/04/24 release Previous Rx's Medication Instructions Recorded Nebulizer #1 ea 08/19/23 omega-3 acid ethyl esters 1 gram 2 cap PO BID #360 caps 11/19/23 capsule sotalol 120 mg tablet (Sotalol AF) 120 mg PO BID #180 tabs 11/19/23 albuterol sulfate 2.5 mg/3 mL 2.5 mg (3 mL) inhalation Q4H PRN 11/27/23 (0.083 %) solution for nebulization shortness of breath or wheezing #180 mL nitroglycerin 0.4 mg sublingual 0.4 mg sublingual Q5M #25 tabs 11/29/23 tablet spironolactone 25 mg tablet 25 mg PO QAM #90 tabs 12/10/23 albuterol sulfate 90 mcg/actuation 2 puff inhalation Q4H PRN 02/11/24 aerosol inhaler shortness of breath or wheezing #25.5 grams atorvastatin 80 mg tablet 80 mg PO DAILY #90 tabs 03/24/24 enalapril maleate 10 mg tablet 10 mg PO .Daily AM #90 tabs 03/24/24 finasteride 5 mg tablet (Proscar) 5 mg PO DAILY #90 tabs 03/24/24 fluticasone fur. 100 mcg-umeclid 1 inh inhalation Q24H #28 ea 03/24/24 62.5 mcg-vilant 25 mcg inhalat.powder (Trelegy Ellipta) fluticasone propionate 50 1 spray intranasal Q12H #32 grams 03/24/24 mcg/actuation nasal spray,suspension (Flonase Allergy Relief) glipizide 10 mg tablet, extended 10 mg PO DAILY #90 tabs 03/24/24 release 24 hr isosorbide mononitrate 30 mg 30 mg PO DAILY #90 tabs 03/24/24 tablet,extended release 24 hr metformin 500 mg tablet,extended See Rx Instructions .Route 03/24/24 release 24 hr .COMPLEX #270 tabs lidocaine 4 % topical cream 1 applic topical TID PRN pain #15 04/01/24 grams gabapentin 300 mg capsule See Rx Instructions PO BID #90 caps 04/08/24 sertraline 50 mg tablet (Zoloft) 50 mg PO DAILY #30 tabs 04/28/24 Allergies Allergy/AdvReac Type Severity Reaction Status Date / Time oxytetracycline Allergy Unknown hives Verified 05/23/24 22:20 [From Terramycin] PFS ED PFSH: Medical History BPH (benign prostatic hyperplasia) Diabetes mellitus with hyperglycemia Essential hypertension Hyperlipidemia, mixed COPD (chronic obstructive pulmonary disease) CAD (coronary artery disease) History of cardiac arrest 03/26/[address] Surgical History History of implantable cardiac defibrillator (ICD) Had 2 producers 2010 and 2019 History of heart artery stent two different times Family History Father CAD (coronary artery disease) Hypertension Mother CAD (coronary artery disease) Diabetes Sister Cancer Eye Stroke Brother Cancer Lung brain Denies family history of Chronic kidney disease (CKD) Anesthesia complication Bleeding disorder Social History Smoking and tobacco/nicotine status: unknown if used tobacco/nicotine Second hand smoke exposure: No Alcohol intake: current Alcohol intake frequency: 0-2 Drinks per Day Alcohol type: beer Substance/Drug Use: unknown Adopted: No Caregiver/support person: No Lives independently: Yes Household members: spouse Housing: House Marital status: Number of children: 3 service: No Current occupational status: retired Pets and animals: Yes Pets & animals: farm animals Do you think of yourself as: Straight/Heterosexual Current gender identity: Male Physical Exam Const: GENERAL APPEARANCE: cooperative, ill appearing and frail appearing HENMT: COMMON NORMALS: normocephalic, atraumatic and Normal external nose present HEAD & SCALP: normocephalic and atraumatic FACE & SINUS: normal facial exam and face symmetric NOSE: Normal external nose present Eye: COMMON NORMALS: Equal, round and reactive pupils present and EOMs intact bilaterally PUPIL: Yes Equal, round and reactive pupils present Neck/C-Spine: GENERAL: Yes trachea midline Chest: CHEST: Yes Symmetrical chest wall rise Resp: EFFORT & INSPECTION: Yes tachypneic AUSCULTATION: rales Cardio: COMMON NORMALS: regular rate and regular rhythm RATE: regular rate RHYTHM: regular rhythm GI: COMMON NORMALS: Normal to inspection, nondistended, normoactive bowel sounds present Extremity: COMMON NORMALS: no pedal edema Neuro: BRIDGER COMA SCALE: document GCS findings Elizabeth coma scale eye opening: Spontaneous Elizabeth coma scale verbal response: Orientated Bridger coma scale motor response: Obey commands Elizabeth coma scale total score: 15 SENSORY EXAM: Yes extremities (intact) Psych: COMMON NORMALS: speech normal SPEECH: Yes normal speech Skin: COMMON NORMALS: no rashes or lesions noted GENERAL SKIN EXAM: no rashes or lesions noted Course Vital Signs: Vital signs: Vital Signs Temperature 98.1 F 05/23/24 22:16 Pulse Rate 65 05/24/24 04:00 Respiratory Rate 20 H 05/24/24 04:00 Blood Pressure 142/65 05/24/24 02:30 Pulse Oximetry 95 05/24/24 04:00 Oxygen Delivery Me thod Nasal Cannula 05/24/24 04:00 MDM - SOB/Dyspnea Medical Decision Making This patient is positive for COVID-19. Blood pressure was initially high but improved. He is afebrile. White blood cell count is 12. Hemoglobin is 14. BMP is not terribly remarkable. Chest x-ray is nonacute. Troponin, however, is elevated at baseline, and delta troponin at 2 hours is significant at over 30. CTA of the chest shows background emphysema with bronchial wall thickening. This patient is mildly hypoxic. He does feel better after breathing treatment here. His delta troponin, however, significant. Unknown if he got hypoxic at home which causes bump in the troponin, or if this is directly related to coronary disease. He will be admitted. Treated for COVID-19, as well as potential non-STEMI. Hospitalist is aware, and will see the patient. Lab Data 05/23/24 22:36 05/23/24 22:36 Labs/Radiology: Radiology Impressions Chest X-Ray 05/23/24 22:42 IMPRESSION: No acute findings. Chest CTA 05/24/24 02:28 IMPRESSION: 1. No pulmonary embolism. 2. Background of emphysema with diffuse bronchial wall thickening and no consolidation. Correlate for bronchitis. 3. Cardiomegaly. COMMENTS: The presence of pulmonary emphysema on CT is an independent risk factor for lung cancer. In the absence of a history or active diagnosis of lung cancer, it is recommended that this patient with emphysema be evaluated for enrollment in a low dose CT lung cancer screening program. Laboratory Results WBC 11.92 10^3/uL (3.29-11.43) H 05/23/24 22:36 RBC 4.83 10^6/uL (3.85-5.65) 05/23/24 22:36 Hgb 13.80 g/dL (11.27-16.99) 05/23/24 22:36 Hct 42.6 % (37-53) 05/23/24 22:36 MCV 88.2 fl (82-101) 05/23/24 22:36 MCH 28.6 pg (27-33) 05/23/24 22:36 MCHC 32.4 g/dL (30-55) 05/23/24 22:36 RDW 13.9 % (12.1-15.1) 05/23/24 22:36 Plt Count 240 10^3/cmm (157-399) 05/23/24 22:36 MPV 9.0 fL (7.4-10.4) 05/23/24 22:36 Neut % (Auto) 72.6 % 05/23/24 22:36 Lymph % (Auto) 7.6 % 05/23/24 22:36 [place] % (Auto) 5.7 % 05/23/24 22:36 Eos % (Auto) 12.8 % 05/23/24 22:36 Baso % (Auto) 0.8 % 05/23/24 22:36 Neut # (Auto) 8.66 10^3/uL (1.8-7.7) H 05/23/24 22:36 Lymph # (Auto) 0.9 10^3/uL (0.8-4.8) 05/23/24 22:36 [place] # (Auto) 0.7 10^3/uL (0.2-0.9) 05/23/24 22:36 Eos # (Auto) 1.5 10^3/uL (0.0-0.8) H 05/23/24 22:36 Baso # (Auto) 0.1 10^3/uL (0.0-0.1) 05/23/24 22:36 Nucleated RBC % (auto) 0 % 05/23/24 22:36 Nucleated RBCs # 0.0 /100WBC 05/23/24 22:36 PT 12.40 SECONDS (12.1-14.9) 05/23/24 22:36 INR 0.89 (0.8-1.2) 05/23/24 22:36 APTT 25.7 SECONDS (23.9-36.7) 05/23/24 22:36 Sodium 135 mmol/L (136-145) L 05/23/24 22:36 Potassium 4.3 mmol/L (3.5-5.1) 05/23/24 22:36 Chloride 97 mmol/L (98-107) L 05/23/24 22:36 Carbon Dioxide 25 mmol/L (22-29) 05/23/24 22:36 Anion Gap 17.3 (5-19) 05/23/24 22:36 BUN 14 mg/dL (8-23) 05/23/24 22:36 Creatinine 0.8 mg/dL (0.7-1.2) 05/23/24 22:36 GFR Calculation Not Reportable 05/23/24 22:36 Glucose 216 mg/dL (65-115) H 05/23/24 22:36 Calculated Osmolality 287 mOsm/kg (285-295) 05/23/24 22:36 Lactic Acid 2.5 mmol/L (0.5-2.2) H 05/23/24 22:36 Calcium 8.7 mg/dL (8.5-10.5) 05/23/24 22:36 Total Bilirubin 0.5 mg/dL (0.15-1.2) 05/23/24 22:36 AST 18 U/L (0-40) 05/23/24 22:36 ALT 27 U/L (0-41) 05/23/24 22:36 Alkaline Phosphatase 70 U/L (40-130) 05/23/24 22:36 Troponin T Baseline 27 ng/L (0-15) H 05/23/24 22:36 Troponin T 120 Minute 58.47 ng/L (0-15) H 05/24/24 01:04 Delta Troponin T 31.47 ABS# (0-10) H* 05/24/24 01:04 NT-Pro-B Natriuret Pep 173 pg/mL (0-125) H 05/23/24 22:36 Total Protein 6.8 g/dL (6.6-8.7) 05/23/24 22:36 Albumin 4.5 g/dL (3.5-5.2) 05/23/24 22:36 Globulin 2.3 g/dL (1.3-4.6) 05/23/24 22:36 Adenovirus (PCR) Not detected (NOT DETECT) 05/23/24 22:51 C. pneumoniae DNA (PCR) Not detected (NOT DETECT) 05/23/24 22:51 Coronavirus 229E (PCR) Not detected (NOT DETECT) 05/23/24 22:51 Human Metapneumovir PCR Not detected (NOT DETECT) 05/23/24 22:51 Influenza A (H1) PCR Not detected (NOT DETECT) 05/23/24 22:51 Influ A (H1/09) PCR Not detected (NOT DETECT) 05/23/24 22:51 Influenza A (H3) PCR Not detected (NOT DETECT) 05/23/24 22:51 Influenza Type A (PCR) Not detected (NOT DETECT) 05/23/24 22:51 Influenza Type B (PCR) Not detected (NOT DETECT) 05/23/24 22:51 M. pneumoniae (PCR) Not detected (NOT DETECT) 05/23/24 22:51 Parainfluenza 1 (PCR) Not detected (NOT DETECT) 05/23/24 22:51 Parainfluenza 2 (PCR) Not detected (NOT DETECT) 05/23/24 22:51 Parainfluenza 3 (PCR) Not detected (NOT DETECT) 05/23/24 22:51 Parainfluenza 4 (PCR) Not detected (NOT DETECT) 05/23/24 22:51 RSV Type A (PCR) Not detected (NOT DETECT) 05/23/24 22:51 RSV Type B (PCR) Not detected (NOT DETECT) 05/23/24 22:51 Entero/Rhino (PCR) Not detected (NOT DETECT) 05/23/24 22:51 SARS-CoV-2 (PCR) Detected (NOT DETECT) A 05/23/24 22:51 All radiology interpretation(s) finalized by discharge Discharge Plan Discharge Patient Disposition: Admitted As Inpatient Admit Provider: Patricio Lewis Clinical Impression: Chest pain, NSTEMI (non-ST elevated myocardial infarction), COPD with acute exacerbation Condition: Fair Coding Level of Care Code ED Supervisory Historian for Sky Watkins
--- NOTE | 2024-05-24 06:52 | PC.NURSE ---
Ariadne CORCORAN and this preceptor transferred care to Rosanne CORCORAN at shift change.
[2024-05-24 11:55] LABS: Chol HDL Ratio 4.82 mg/dL (1.0-5.00); Cholesterol 135 mg/dL (0-200); HDL Cholesterol 28 mg/dL (60-100); LDL Cholesterol Calculated 37 mg/dL (50-129); LDL HDL Ratio 1.32 RATIO (0.00-3.22); Triglycerides 348 mg/dL (0-150)
[2024-05-24 11:59] LABS: Glucose Point of Care 208 mg/dL (70-110)
[2024-05-24 12:04] LABS: Estmated Average Glucose 169; Hemoglobin A1C 7.5 % (4.0-6.0)
[2024-05-24] MEDS: aspirin 81 mg EC Tablet PO (12:19)
[2024-05-24] MEDS: spironolactone 25 mg Tablet PO (12:19)
[2024-05-24] MEDS: sertraline 50 mg Tablet PO (12:19)
[2024-05-24] MEDS: finasteride 5 mg Tablet PO (12:19)
[2024-05-24] MEDS: pantoprazole 40 mg SDV IVP (12:23)
[2024-05-24] MEDS: insulin lispro 100 unit/1 mL SUBCUT ×3 (12:23→22:39)
--- NOTE | 2024-05-24 12:35 | PC.NURSE ---
processed pts transfer orders @ [phone], pt was ordered NPO by Dr. Lewis. pt needed to have PO medications. this nurse called Dr. Umanzor @[phone] to ask if he still wanted PO meds given to pt. he asked if pt was able to swallow and this nurse confirmed with pt and did a swallow study at bedside and he had no issues. PO meds given after conformation with provider. Dr. Umanzor also states that patient should be able to start normal diet if no procedures are scheduled for pt.
[2024-05-24] MEDS: remdesivir 200 MG in sodium chloride 0.9% (100 ml) 60 ML 100 MG IV (12:53)
[2024-05-24] MEDS: ipratropium-albuterol 3 mL Neb INHALATION ×4 (13:46→21:11)
--- NOTE | 2024-05-24 14:11 | P.PN_ITS ---
Subjective 2 Subjective: He reports his breathing is a little bit better. Continues to have productive cough. Has not had any recurrence of chest pain. Blood pressure is elevated. Vitals/I&O/Wt Last Vital Signs Temp 97.9 F 05/24/24 13:43 Pulse 69 05/24/24 13:51 Resp 16 05/24/24 13:47 BP 184/105 05/24/24 13:49 Pulse Ox 98 05/24/24 13:47 O2 Del Method Nasal Cannula 05/24/24 13:47 O2 Flow Rate 4 05/24/24 13:47 Weight last 48 hrs Weight 81.647 kg Physical Exam 2 Narrative: Accompanied by his . Const: COMMON NORMALS: patient oriented x3 and alert GENERAL APPEARANCE: c ooperative ORIENTATION/CONSCIOUSNESS: Yes awake HENMT: COMMON NORMALS: oropharynx normal Neck/C-Spine: COMMON NORMALS: no JVD Resp: COMMON NORMALS: normal respiratory effort AUSCULTATION: diminished lung sounds Cardio: COMMON NORMALS: no JVD, regular rhythm, S1 normal heart sound present, S2 normal heart sound present and No murmurs present (Cardio) RHYTHM: regular rhythm HEART SOUNDS: S1 normal heart sound present and S2 normal heart sound present GI: COMMON NORMALS: Normal to inspection, nondistended, normoactive bowel sounds present, Soft to palpation and non-tender PALPATION: Yes Soft to palpation Extremity: COMMON NORMALS: no joint enlargement and no pedal edema Neuro: COMMON NORMALS: patient oriented x3 and moves all extremities S ENSORIUM/ORIENTATION: Yes alert Skin: COMMON NORMALS: no rashes or lesions noted GENERAL SKIN EXAM: no rashes or lesions noted Data 05/23/24 22:36 05/23/24 22:36 Micro: Microbiology 05/23/24 23:15 Blood Culture - Preliminary Blood SPECIMEN COLLECTED 05/23/24 23:13 Blood Culture - Preliminary Blood SPECIMEN COLLECTED A&P Assessment and plan (1) NSTEMI (non-ST elevated myocardial infarction): (2) Pneumonia due to COVID-19 virus: (3) Acute hypoxic respiratory failure: (4) COPD exacerbation: (5) Chest pain: (6) CAD (coronary artery disease): Plan Acute hypoxic respiratory failure Reviewed vitals, CBC, D-dimer, ABG, CMP component troponin, respiratory viral panel, CT angiogram chest. Echocardiogram pending. Severe COVID-19 with hypoxia as well COPD exacerbation. Continue treatment with Solu-Medrol, remdesivir, breathing treatments, continue oxygen support. Wean down as tolerating. He is on therapeutic Lovenox. Monitor for risk of bleeding with anticoagulation. Reassess blood counts. Repeat D-dimer. At risk of VTE. Chest pain, NSTEMI - currently chest pain-free ? Continue aspirin ? Continue statin -Serial EKGs, serial troponins, telemetry monitoring ? Therapeutic Lovenox ? Cardiac echo obtained. Type 2 diabetes mellitus, low-dose sliding scale Attestations 2 Medical Necessity Statement*: Continue admission for assessment of management of severe COVID-19, COPD exacerbation, NSTEMI. and High MDM includes described risk of complication, morbidity or mortality of management as documented Diagnoses NSTEMI (non-ST elevated myocardial infarction) I21.4 Pneumonia due to COVID-19 virus U07.1; J12.82 Acute hypoxic respiratory failure J96.01 COPD exacerbation J44.1 Chest pain R07.9 CAD (coronary artery disease) I25.10
[2024-05-24] MEDS: hyDRALAzine 20 mg/mL INJ 1 mL 5 MG IVP (14:29)
[2024-05-24 16:59] LABS: Glucose Point of Care 200 mg/dL (70-110)
[2024-05-24] MEDS: gabapentin 300 mg Capsule 600 MG PO (17:13)
[2024-05-24] MEDS: methylPREDNISolone sod succ 40 mg/mL INJ IVP (17:14)
[2024-05-24] MEDS: sotalol 80 mg Tablet 120 MG PO (17:14)
[2024-05-24 21:45] LABS: Glucose Point of Care 245 mg/dL (70-110)
[2024-05-25] VITALS (13 sets, daily range): BP systolic 124–167; BP diastolic 51–79; PULSE 62–108; RESP 18–20; TEMP 36.5–36.9; O2SAT 93–97
[2024-05-25] MEDS: enoxaparin 80 mg/0.8 mL Syringe SUBCUT ×2 (02:31→15:52)
[2024-05-25] MEDS: methylPREDNISolone sod succ 40 mg/mL INJ IVP ×3 (02:31→17:06)
[2024-05-25 03:49] LABS: Basophils % 0.2 %; Eosinophils % 0.1 %; Hematocrit 40.9 % (37-53); Lymphocytes # 0.7 10^3/uL (0.8-4.8); Lymphocytes % 5.5 %; Mean Corpuscular HGB Conc 32.8 g/dL (30-55); Mean Corpuscular Hemoglobin 28.5 pg (27-33); Mean Corpuscular Volume 86.8 fl (82-101); Mean Platelet Volume 9.7 fL (7.4-10.4); Monocytes % 8.6 %; Neutrophils # 10.02 10^3/uL (1.8-7.7); Neutrophils % 84.9 %; Nucleated Red Blood Cells % 0 %; Platelet Count 243 10^3/cmm (157-399); Red Blood Count 4.71 10^6/uL (3.85-5.65); Red Cell Distribution Width 13.8 % (12.1-15.1); White Blood Count 11.79 10^3/uL (3.29-11.43)
[2024-05-25 04:17] LABS: D Dimer 0.74 ug/mLFEU (0-0.59)
[2024-05-25 04:25] LABS: Anion Gap 15.6 (5-19); Blood Urea Nitrogen 17 mg/dL (8-23); Calcium 9.2 mg/dL (8.5-10.5); Carbon Dioxide 27 mmol/L (22-29); Chloride 99 mmol/L (98-107); Creatinine Clr Calc Pharmacy 88.6347; Glucose 187 mg/dL (65-115); Osmolality Calculated 290 mOsm/kg (285-295); Potassium 4.6 mmol/L (3.5-5.1); Sodium 137 mmol/L (136-145)
[2024-05-25 06:06] LABS: Glucose Point of Care 222 mg/dL (70-110)
[2024-05-25] MEDS: remdesivir 100 MG in sodium chloride 0.9% (100 ml) 80 ML IV (06:36)
[2024-05-25] MEDS: spironolactone 25 mg Tablet PO (06:36)
[2024-05-25] MEDS: ipratropium-albuterol 3 mL Neb INHALATION ×4 (08:45→20:26)
[2024-05-25] MEDS: aspirin 81 mg EC Tablet PO (08:54)
[2024-05-25] MEDS: insulin lispro 100 unit/1 mL SUBCUT ×3 (08:54→17:06)
[2024-05-25] MEDS: sotalol 80 mg Tablet 120 MG PO ×2 (08:55→17:07)
[2024-05-25] MEDS: sertraline 50 mg Tablet PO (08:55)
[2024-05-25] MEDS: atorvastatin 40 mg Tablet 80 MG PO (08:55)
[2024-05-25] MEDS: finasteride 5 mg Tablet PO (08:55)
[2024-05-25] MEDS: lisinopril 20 mg Tablet PO (08:55)
[2024-05-25 11:28] LABS: Glucose Point of Care 306 mg/dL (70-110)
[2024-05-25] MEDS: pantoprazole 40 mg SDV IVP (11:51)
[2024-05-25 16:03] LABS: Glucose Point of Care 345 mg/dL (70-110)
[2024-05-25] MEDS: gabapentin 300 mg Capsule 600 MG PO (17:07)
[2024-05-25 20:36] LABS: Glucose Point of Care 293 mg/dL (70-110)
--- NOTE | 2024-05-25 22:15 | P.PN_ITS ---
Subjective 2 Subjective: He is gradually improving. Still having cough. Denies headache nausea vomiting or diarrhea. No chest pain. Vitals/I&O/Wt Last Vital Signs Temp 98.0 F 05/25/24 20:00 Pulse 70 05/25/24 20:28 Resp 18 05/25/24 20:28 BP 167/64 05/25/24 20:00 Pulse Ox 94 05/25/24 20:28 O2 Del Method Nasal Cannula 05/25/24 20:28 O2 Flow Rate 1 05/25/24 20:28 05/25/24 05/25/24 05/25/24 06:59 14:59 22:59 Intake Total 0 / 100 580 / 580 250 / 830 Balance 0 / 100 580 / 580 250 / 830 Weight last 48 hrs Weight 81.647 kg Physical Exam 2 Narrative: Sitting up at the bedside. Const: COMMON NORMALS: patient oriented x3 and alert GENERAL APPEARANCE: c ooperative ORIENTATION/CONSCIOUSNESS: Yes awake HENMT: COMMON NORMALS: oropharynx normal Neck/C-Spine: COMMON NORMALS: no JVD Resp: COMMON NORMALS: normal respiratory effort AUSCULTATION: diminished lung sounds Cardio: COMMON NORMALS: no JVD, regular rhythm, S1 normal heart sound present, S2 normal heart sound present and No murmurs present (Cardio) RHYTHM: regular rhythm HEART SOUNDS: S1 normal heart sound present and S2 normal heart sound present GI: COMMON NORMALS: Normal to inspection, nondistended, normoactive bowel sounds present, Soft to palpation and non-tender PALPATION: Yes Soft to palpation Extremity: COMMON NORMALS: no joint enlargement and no pedal edema Neuro: COMMON NORMALS: patient oriented x3 and moves all extremities S ENSORIUM/ORIENTATION: Yes alert Skin: COMMON NORMALS: no rashes or lesions noted GENERAL SKIN EXAM: no rashes or lesions noted Data 05/25/24 02:49 05/25/24 02:49 Micro: Microbiology 05/23/24 23:15 Blood Culture - Preliminary Blood NEGATIVE TO DATE 05/23/24 23:13 Blood Culture - Preliminary Blood NEGATIVE TO DATE A&P Assessment and plan (1) NSTEMI (non-ST elevated myocardial infarction): (2) Pneumonia due to COVID-19 virus: (3) Acute hypoxic respiratory failure: (4) COPD exacerbation: (5) Chest pain: (6) CAD (coronary artery disease): Plan Acute hypoxic respiratory failure: Gradually improving. Respiratory failure resolved. Continues with severe COVID-19. Continues to require oxygen but this is improving. Continue remdesivir, Decadron. Monitor for risk of hyperglycemia, hypertension, encephalopathy, gastritis. Blood pressure noted with elevation 167/64. Reviewed echocardiogram, normal ejection fraction, mild MVR. Severe COVID-19 with hypoxia as well COPD exacerbation. Continue treatment with Solu-Medrol, remdesivir, breathing treatments, continue oxygen support. Wean down as tolerating. He is on therapeutic Lovenox. Monitor for risk of bleeding with anticoagulation. Reassess blood counts. Repeat D-dimer. At risk of VTE. Discussed with adult protective caseworker. Still requiring oxygen. But has been weaning down. Hopefully will not require oxygen at time of discharge. Will need home O2 evaluation. Hypertension: Continue lisinopril, spironolactone. Add amlodipine. Chest pain, NSTEMI With moderate troponin elevation. Minimal peak. Previously abnormal stress test on review of stress test from 01/14. With chest pain on presentation. Since then does remain chest pain-free. Echocardiogram reviewed, with normal ejection fraction, no regional wall motion normality. Suspicion of underlying CAD, may have been symptomatic on presentation with hypoxia, COVID-19. Consider cardiology consultation tomorrow or prior to discharge for consideration of further assessment steps and timing. For now continues on therapeutic Lovenox, continue for additional 1-2 days. ? Continue aspirin ? Continue statin -Serial EKGs, serial troponins, telemetry monitoring Type 2 diabetes mellitus, low-dose sliding scale Attestations 2 Medical Necessity Statement*: Continue admission for assessment of management of severe COVID-19, COPD exacerbation, NSTEMI. and High MDM includes amount and/or complexity of data reviewed/ordered [ resulted lab(s)/test(s), ordered lab(s)/test(s) and other healthcare professional discussion] and described risk of complication, morbidity or mortality of management as documented Diagnoses NSTEMI (non-ST elevated myocardial infarction) I21.4 Pneumonia due to COVID-19 virus U07.1; J12.82 Acute hypoxic respiratory failure J96.01 COPD exacerbation J44.1 Chest pain R07.9 CAD (coronary artery disease) I25.10
[2024-05-25] MEDS: insulin glargine 100 units/1 mL 8 UNIT SUBCUT (23:05)
[2024-05-26] VITALS: BP 134/63; PULSE 59; RESP 18; TEMP 36.4; O2SAT 94
[2024-05-26] MEDS: enoxaparin 80 mg/0.8 mL Syringe SUBCUT (02:56)
[2024-05-26] MEDS: methylPREDNISolone sod succ 40 mg/mL INJ IVP ×2 (02:56→10:54)
[2024-05-26 04:00] VITALS: BP 146/69; PULSE 65; RESP 20; TEMP 36.9; O2SAT 92
[2024-05-26 04:03] LABS: Basophils % 0.2 %; Hematocrit 41.1 % (37-53); Lymphocytes % 5.8 %; Mean Corpuscular HGB Conc 32.1 g/dL (30-55); Mean Corpuscular Hemoglobin 28.4 pg (27-33); Mean Corpuscular Volume 88.6 fl (82-101); Mean Platelet Volume 9.3 fL (7.4-10.4); Monocytes # 1.6 10^3/uL (0.2-0.9); Monocytes % 8.9 %; Neutrophils % 84.6 %; Nucleated Red Blood Cells % 0 %; Platelet Count 257 10^3/cmm (157-399); Red Blood Count 4.64 10^6/uL (3.85-5.65); Red Cell Distribution Width 14.2 % (12.1-15.1)
[2024-05-26 04:19] LABS: D Dimer 0.63 ug/mLFEU (0-0.59)
[2024-05-26 04:24] LABS: Anion Gap 13.3 (5-19); Blood Urea Nitrogen 23 mg/dL (8-23); Calcium 8.5 mg/dL (8.5-10.5); Carbon Dioxide 29 mmol/L (22-29); Chloride 98 mmol/L (98-107); Creatinine Clr Calc Pharmacy 88.6347; Glucose 205 mg/dL (65-115); Osmolality Calculated 292 mOsm/kg (285-295); Potassium 4.3 mmol/L (3.5-5.1); Sodium 136 mmol/L (136-145)
[2024-05-26] MEDS: remdesivir 100 MG in sodium chloride 0.9% (100 ml) 80 ML IV (05:52)
[2024-05-26] MEDS: spironolactone 25 mg Tablet PO (05:52)
[2024-05-26 06:28] LABS: Glucose Point of Care 183 mg/dL (70-110)
[2024-05-26] MEDS: ipratropium-albuterol 3 mL Neb INHALATION (07:39)
[2024-05-26 07:40] VITALS: PULSE 83; RESP 16; O2SAT 94
[2024-05-26 07:54] VITALS: BP 127/59; PULSE 64; PULSE 79; RESP 20; TEMP 36.4; O2SAT 94
[2024-05-26] MEDS: insulin lispro 100 unit/1 mL SUBCUT (07:55)
[2024-05-26] MEDS: atorvastatin 40 mg Tablet 80 MG PO (08:11)
[2024-05-26] MEDS: finasteride 5 mg Tablet PO (08:12)
[2024-05-26] MEDS: sertraline 50 mg Tablet PO (08:13)
[2024-05-26] MEDS: lisinopril 20 mg Tablet PO (08:13)
[2024-05-26] MEDS: sotalol 80 mg Tablet 120 MG PO (08:14)
[2024-05-26] MEDS: aspirin 81 mg EC Tablet PO (08:16)
--- NOTE | 2024-05-26 10:04 | P.DS_ITS ---
Discharge Providers Date of Admission: 05/24/24 02:36 Date of Discharge: May 26, 2024 Attending Provider at Admission: Patricio Lewis MD Attending Provider at Discharge: Scott Nieves MD Primary Care Provider: JOSEPH Sanchez Diagnoses at Discharge Discharge Diagnosis (1) NSTEMI (non-ST elevated myocardial infarction): Status: Acute (2) Pneumonia due to COVID-19 virus: Status: Acute (3) Acute hypoxic respiratory failure: Status: Acute (4) COPD exacerbation: Status: Acute (5) Chest pain: Status: Acute (6) CAD (coronary artery disease): Status: Chronic Reason for Visit Reason for Visit: chest pain, sob Hospital Course Hospital Course Patient is a 74-year-old white male who presented to the hospital short of breath, and was diagnosed with acute hypoxic respiratory failure, and COPD exacerbation. There was concern of non-ST elevation myocardial infarction. He was found to have COVID, remdesivir and steroids were initiated. Transthoracic echo was performed, demonstrating no significant abnormality. CTA demonstrated some emphysema, but no pulmonary embolism. He improved quickly, and on the was on room air asking to go home. He had no chest discomfort. We discussed his abnormal stress test, but he did not want further follow-up here. He instead wanted outpatient follow-up. He was able to ask questions, and agreed with the plan. He will be discharged on a short course of prednisone, as well as resuming his aspirin, statin and other cardiac meds. He is to return for any recurrent chest discomfort. Follow-up with cardiology in 1 week. Physical Exam Narrative: General Exam no distress Neck is supple Cardiovascular regular in rhythm Lungs clear, diminished breath sounds bilaterally Abdomen soft Extremities no cyanosis clubbing edema Discharge Data Studies Completed and Pending Completed Studies During Hospitalization Category Date Time Status CTA chest [CT angio chest PE protcl [id number]] Stat Cat Scan 05/24/24 02:28 Completed XR chest 1V portable [id number] Stat Exams 05/23/24 22:42 Completed CV. echo complete* [id number] Stat Ultrasound 05/24/24 02:48 Completed Pending at discharge Category Date Time Status Basic Metabolic Panel AM LABS Lab 05/27/24 04:00 Ordered Blood Culture Stat Lab 05/23/24 23:15 Results Complete Blood Count w/Auto AM LABS Lab 05/27/24 04:00 Ordered Radiology Impressions Chest X-Ray 05/23/24 22:42 IMPRESSION: No acute findings. Chest CTA 05/24/24 02:28 IMPRESSION: 1. No pulmonary embolism. 2. Background of emphysema with diffuse bronchial wall thickening and no consolidation. Correlate for bronchitis. 3. Cardiomegaly. COMMENTS: The presence of pulmonary emphysema on CT is an independent risk factor for lung cancer. In the absence of a history or active diagnosis of lung cancer, it is recommended that this patient with emphysema be evaluated for enrollment in a low dose CT lung cancer screening program. Laboratory Results WBC 17.60 10^3/uL (3.29-11.43) H 05/26/24 03:32 RBC 4.64 10^6/uL (3.85-5.65) 05/26/24 03:32 Hgb 13.20 g/dL (11.27-16.99) 05/26/24 03:32 Hct 41.1 % (37-53) 05/26/24 03:32 MCV 88.6 fl (82-101) 05/26/24 03:32 MCH 28.4 pg (27-33) 05/26/24 03:32 MCHC 32.1 g/dL (30-55) 05/26/24 03:32 RDW 14.2 % (12.1-15.1) 05/26/24 03:32 Plt Count 257 10^3/cmm (157-399) 05/26/24 03:32 MPV 9.3 fL (7.4-10.4) 05/26/24 03:32 Neut % (Auto) 84.6 % 05/26/24 03:32 Lymph % (Auto) 5.8 % 05/26/24 03:32 [place] % (Auto) 8.9 % 05/26/24 03:32 Eos % (Auto) 0.0 % 05/26/24 03:32 Baso % (Auto) 0.2 % 05/26/24 03:32 Neut # (Auto) 14.90 10^3/uL (1.8-7.7) H 05/26/24 03:32 Lymph # (Auto) 1.0 10^3/uL (0.8-4.8) 05/26/24 03:32 [place] # (Auto) 1.6 10^3/uL (0.2-0.9) H 05/26/24 03:32 Eos # (Auto) 0.0 10^3/uL (0.0-0.8) 05/26/24 03:32 Baso # (Auto) 0.0 10^3/uL (0.0-0.1) 05/26/24 03:32 Nucleated RBC % (auto) 0 % 05/26/24 03:32 Nucleated RBCs # 0.0 /100WBC 05/26/24 03:32 PT 12.80 SECONDS (12.1-14.9) 05/24/24 03:04 INR 0.94 (0.8-1.2) 05/24/24 03:04 APTT 25.7 SECONDS (23.9-36.7) 05/23/24 22:36 D-Dimer 0.63 ug/mLFEU (0-0.59) H 05/26/24 03:32 Specimen Type Arterial 05/24/24 03:00 Sample Site Radial, right 05/24/24 03:00 ABG pH 7.36 (7.35-7.45) 05/24/24 03:00 ABG pCO2 45.5 mmHg (35-45) H 05/24/24 03:00 ABG pO2 26.0 mmHg (80.0-100.0) L* 05/24/24 03:00 ABG HCO3 25.6 mmol/L (22-26) 05/24/24 03:00 ABG Base Excess -0.3 mmol/L (-2.0-2.0) 05/24/24 03:00 Antonio Test Pos 05/24/24 03:00 Hematocrit 40.3 % (42-52) L 05/24/24 03:00 O2 Delivery Device Nc 05/24/24 03:00 O2 Liters/Min 3.0 % 05/24/24 03:00 Paediatric Physiotherapist ID Cl 05/24/24 03:00 Sodium 136 mmol/L (136-145) 05/26/24 03:32 Potassium 4.3 mmol/L (3.5-5.1) 05/26/24 03:32 Chloride 98 mmol/L (98-107) 05/26/24 03:32 Carbon Dioxide 29 mmol/L (22-29) 05/26/24 03:32 Anion Gap 13.3 (5-19) 05/26/24 03:32 BUN 23 mg/dL (8-23) 05/26/24 03:32 Creatinine 0.8 mg/dL (0.7-1.2) 05/26/24 03:32 GFR Calculation Not Reportable 05/26/24 03:32 Glucose 205 mg/dL (65-115) H 05/26/24 03:32 POC Glucose 183 mg/dL (70-110) H 05/26/24 06:23 Estimat Average Glucose 169 05/23/24 22:36 Hemoglobin A1c 7.5 % (4.0-6.0) H 05/23/24 22:36 Calculated Osmolality 292 mOsm/kg (285-295) 05/26/24 03:32 Lactic Acid 2.5 mmol/L (0.5-2.2) H 05/23/24 22:36 Lactic Acid (Sepsis) 2.7 mmol/L (0.5-2.2) H 05/24/24 03:04 Calcium 8.5 mg/dL (8.5-10.5) 05/26/24 03:32 Phosphorus 3.6 mg/dL (2.5-4.5) 05/24/24 03:04 Magnesium 1.7 mg/dL (1.7-2.3) 05/24/24 03:04 Total Bilirubin 0.5 mg/dL (0.15-1.2) 05/23/24 22:36 AST 18 U/L (0-40) 05/23/24 22:36 ALT 27 U/L (0-41) 05/23/24 22:36 Alkaline Phosphatase 70 U/L (40-130) 05/23/24 22:36 Troponin T Baseline 27 ng/L (0-15) H 05/23/24 22:36 Troponin T 120 Minute 58.47 ng/L (0-15) H 05/24/24 01:04 Delta Troponin T 31.47 ABS# (0-10) H* 05/24/24 01:04 Troponin T Hi Sens 6Hr 48.81 ng/L (0-15) H 05/24/24 03:52 Troponin T Hi Sens 6Hr Delta 21.81 ng/L (0-12) H* 05/24/24 03:52 C-Reactive Protein 8.3 mg/L (0.0-4.9) H 05/24/24 03:04 NT-Pro-B Natriuret Pep 173 pg/mL (0-125) H 05/23/24 22:36 Total Protein 6.8 g/dL (6.6-8.7) 05/23/24 22:36 Albumin 4.5 g/dL (3.5-5.2) 05/23/24 22:36 Globulin 2.3 g/dL (1.3-4.6) 05/23/24 22:36 Triglycerides 348 mg/dL (0-150) H 05/24/24 03:04 Cholesterol 135 mg/dL (0-200) 05/24/24 03:04 LDL Cholesterol, Calc 37 mg/dL (50-129) L 05/24/24 03:04 HDL Cholesterol 28 mg/dL (60-100) L 05/24/24 03:04 LDL/HDL Ratio 1.32 RATIO (0.00-3.22) 05/24/24 03:04 Cholesterol/HDL Ratio 4.82 mg/dL (1.0-5.00) 05/24/24 03:04 Procalcitonin 0.05 ng/mL (0-0.5) 05/24/24 03:04 Adenovirus (PCR) Not detected (NOT DETECT) 05/23/24 22:51 C. pneumoniae DNA (PCR) Not detected (NOT DETECT) 05/23/24 22:51 Coronavirus 229E (PCR) Not detected (NOT DETECT) 05/23/24 22:51 Human Metapneumovir PCR Not detected (NOT DETECT) 05/23/24 22:51 Influenza A (H1) PCR Not detected (NOT DETECT) 05/23/24 22:51 Influ A (H1/09) PCR Not detected (NOT DETECT) 05/23/24 22:51 Influenza A (H3) PCR Not detected (NOT DETECT) 05/23/24 22:51 Influenza Type A (PCR) Not detected (NOT DETECT) 05/23/24 22:51 Influenza Type B (PCR) Not detected (NOT DETECT) 05/23/24 22:51 M. pneumoniae (PCR) Not detected (NOT DETECT) 05/23/24 22:51 Parainfluenza 1 (PCR) Not detected (NOT DETECT) 05/23/24 22:51 Parainfluenza 2 (PCR) Not detected (NOT DETECT) 05/23/24 22:51 Parainfluenza 3 (PCR) Not detected (NOT DETECT) 05/23/24 22:51 Parainfluenza 4 (PCR) Not detected (NOT DETECT) 05/23/24 22:51 RSV Type A (PCR) Not detected (NOT DETECT) 05/23/24 22:51 RSV Type B (PCR) Not detected (NOT DETECT) 05/23/24 22:51 Entero/Rhino (PCR) Not detected (NOT DETECT) 05/23/24 22:51 SARS-CoV-2 (PCR) Detected (NOT DETECT) A 05/23/24 22:51 Vitals Last Vital Signs Temp 97.5 F L 05/26/24 07:54 Pulse 64 05/26/24 07:54 Resp 20 H 05/26/24 07:54 BP 127/59 05/26/24 07:54 Pulse Ox 94 05/26/24 07:54 O2 Del Method Room Air 05/26/24 07:54 O2 Flow Rate 1 05/26/24 07:40 Discharge Plan Discharge Patient Disposition: Home Condition: Fair Prescriptions: New prednisone 20 mg tablet 40 mg PO BID 3 Days Qty: 6 0RF Continued aspirin 81 mg tablet,delayed release (DR/EC) 81 mg PO DAILY (DME) Nebulizer See Rx Instructions .Route .MEDSUPPLY Qty: 1 0RF Rx Instructions: As directed omega-3 acid ethyl esters 1 gram capsule 2 cap PO BID Qty: 360 1RF sotalol [Sotalol AF] 120 mg tablet 120 mg PO BID Qty: 180 1RF albuterol sulfate 90 mcg/actuation HFA aerosol inhaler 2 puff inhalation Q4H PRN (Reason: shortness of breath or wheezing) Qty: 25.5 1RF albuterol sulfate 2.5 mg /3 mL (0.083 %) solution for nebulization 2.5 mg inhalation Q4H PRN (Reason: shortness of breath or wheezing) Qty: 180 5RF spironolactone 25 mg tablet 25 mg PO QAM Qty: 90 1RF sertraline [Zoloft] 50 mg tablet 50 mg PO DAILY Qty: 30 2RF atorvastatin 80 mg tablet 80 mg PO DAILY Qty: 90 1RF enalapril maleate 10 mg tablet 10 mg PO .Daily AM Qty: 90 1RF Hold Instructions: Doctor's Order finasteride [Proscar] 5 mg tablet 5 mg PO DAILY Qty: 90 1RF Trelekatelin Ellipta 100-62.5-25 mcg blister with device 1 inh inhalation Q24H Qty: 28 5RF glipizide 10 mg tablet extended release 24hr 10 mg PO DAILY Qty: 90 1RF metformin 500 mg tablet extended release 24 hr See Rx Instructions .ROUTE .COMPLEX Qty: 270 1RF Rx Instructions: TAKE 1 TABLET IN THE MORNING AND 2 TABLETS IN THE PM. nitroglycerin 0.4 mg tablet, sublingual 0.4 mg sublingual Q5M Qty: 25 2RF isosorbide mononitrate 30 mg tablet extended release 24 hr 30 mg PO DAILY Qty: 90 1RF gabapentin 300 mg capsule 300 mg PO BID Discharge Orders: Discharge Order (Routine); Ordered 05/26/24 Ordered By: Scott Nieves Referrals: Kaveh Craig FNP-C [Primary Care Provider] - 4-7 days (We have notified your physician's clinic of the need for a follow-up appointment to be scheduled. If you have not heard from them within the next 2 business days, please call them directly. ) Felicia Zarate FNP [Nurse Practitioner] - 06/03/24 3:30 pm (follow up NSTEMI, history of abnormal stress test) Discharge Diet: Cardiac and Diabetic Discharge Activity: Increase activity as tolerated Patient Instructions: Opioid Safety Activity Restrictions/Additional Instructions: Do not take metformin till tomorrow Take all medicine as prescribed Return for any chest discomfort Follow-up with your primary care provider 4 to 7 days, cardiology 1 week. Discussed with cardiology history of positive stress test, and possible need for angiogram. Do not overexert Discharge Attestations Time Spent in Discharge Care*: greater than 30 min Quality Metrics Clinical Quality Measures [ Acute Myocardial Infaction { Clinical Trial Participant: No; Contraindication to aspirin: None; Aspirin prescribed; Contraindication to statin: None; Statin prescribed; Contraindication to PCI: Intervention not indicated;}] Coding Level of Care Code 46720 Total time (in minutes) for Discharge: 34 Diagnoses NSTEMI (non-ST elevated myocardial infarction) I21.4 Pneumonia due to COVID-19 virus U07.1; J12.82 Acute hypoxic respiratory failure J96.01 COPD exacerbation J44.1 Chest pain R07.9 CAD (coronary artery disease) I25.10
[2024-05-26 12:17] VITALS: BP 127/59; PULSE 64; RESP 20; TEMP 36.4
[2024-05-26 12:20] VITALS: BP 127/59; PULSE 64; RESP 20; TEMP 36.4
== END 2024-05-26 11:34 | disposition home or self-care (01) | DRG 280 ==
LOC: ER 05-24 02:49 → ER IP 05-24 05:32 → CSU 05-24 12:29
PROVIDERS: Internal Medicine; Admitting Provider Family Medicine; Emergency Provider Emergency Medicine; PCP Nurse Practitioner; Visit Provider Internal Medicine
DX: I21.4 Non-ST elevation (NSTEMI) myocardial infarction (principal); J12.82 Pneumonia due to coronavirus disease 2019; U07.1 COVID-19; J96.01 Acute respiratory failure with hypoxia; J44.0 Chronic obstructive pulmonary disease with (acute) lower respiratory infection; J44.1 Chronic obstructive pulmonary disease with (acute) exacerbation; I25.10 Atherosclerotic heart disease of native coronary artery without angina pectoris; I10 Essential (primary) hypertension; E11.9 Type 2 diabetes mellitus without complications; E78.2 Mixed hyperlipidemia; Z82.49 Family history of ischemic heart disease and other diseases of the circulatory system; Z87.891 Personal history of nicotine dependence; Z95.5 Presence of coronary angioplasty implant and graft; Z86.74 Personal history of sudden cardiac arrest; Z95.810 Presence of automatic (implantable) cardiac defibrillator; Z79.899 Other long term (current) drug therapy; Z79.82 Long term (current) use of aspirin; Z88.1 Allergy status to other antibiotic agents
CPT/HCPCS: 36415; 36416; 36600; 71045; 71275; 80048; 80053; 80061; 82803; 82962; 83036; 83605; 83735; 83880; 84100; 84145; 84484; 85025; 85378; 85610; 85730; 86140; 87040; 87486; 87581; 87633; 93005; 93306; 94640; 96372; 99285; J0248; J0360; J1650; J1815; J2470; J2919; J8540

== ENCOUNTER → 2024-06-03 15:21 | Outpatient (BNVA) | payer MEDICARE, SELFPAY | PROVIDERS: PCP Nurse Practitioner; Visit Provider Nurse Practitioner Family | DX: I25.10 Atherosclerotic heart disease of native coronary artery without angina pectoris (principal) | CPT/HCPCS: 99213 ==

== ENCOUNTER → 2024-07-07 08:13 | Outpatient (BNVA) | payer MEDICARE, SELFPAY | PROVIDERS: PCP Nurse Practitioner; Visit Provider Podiatrist Foot & Ankle Surgery | DX: B35.1 Tinea unguium (principal); I73.9 Peripheral vascular disease, unspecified; R60.9 Edema, unspecified; E11.69 Type 2 diabetes mellitus with other specified complication; Z79.84 Long term (current) use of oral hypoglycemic drugs | CPT/HCPCS: 11721 ==

== ENCOUNTER 2024-07-13 20:11 | Emergency (ER) | payer MEDICARE, SELFPAY ==
[2024-07-13 20:18] VITALS: BP 190/82; PULSE 76; RESP 18; TEMP 36.7; O2SAT 94; BMI 26.6
--- NOTE | 2024-07-13 20:20 | ECG_ITS ---
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 Measurements Intervals [place] Rate: 76 P: -5 GA: 117 QRS: 179 QRSD: 150 T: 72 QT: 455 QTc: 514 Interpretive Statements ELECTRONIC VENTRICULAR PACEMAKER ABNORMAL RHYTHM ECG Compared to ECG 05/24/2024 05:53:56 No significant changes Electronically Signed On 07-16-2024 22:02:25 PONY TRIMMER by Conner Woody M.D. [email or web address]
--- NOTE | 2024-07-13 20:20 | XRR_ITS ---
PROCEDURE INFORMATION: Exam: XR Chest Exam date and time: 07/13/2024 8:36 PM Age: 74 years old Clinical indication: Pain; Chest pressure; Prior surgery; Surgery date: 6+ months; Surgery type: Pacer cardiac stents; Additional info: Cp TECHNIQUE: Imaging protocol: Radiologic exam of the chest. Views: 1 view. COMPARISON: CT angio chest PE protcl [id number] 05/24/2024 2:41 AM FINDINGS: Tubes, catheters and devices: Triple lead cardiac pacer/ICD. Lungs: Mild left basilar streak atelectasis. No focal consolidation. Pleural spaces: Unremarkable. No pleural effusion. No pneumothorax. Heart/Mediastinum: Unremarkable. No cardiomegaly. Bones/joints: Remote fracture of the right lateral 9th rib. XR/XR chest 1V portable [id number] IMPRESSION: Minimal left basilar streak atelectasis and other chronic findings detailed above. No acute plain radiographic cardiopulmonary abnormality.
--- NOTE | 2024-07-13 21:01 | ED_ITS ---
HPI - Chest Pain 2 General: Chief Complaint: Chest Pain Stated Complaint: chest pain Time Seen by Provider: 07/13/24 20:30 Source: patient Mode of arrival: ambulatory Limitations: no limitations History of Present Illness: Patient is a 74-year-old male with past medical history of diabetes, COPD, CAD, coronary artery stents, pacemaker/defibrillator who presents to the emergency department with chest pain beginning about an hour prior to arrival. He states that he had just darted eating when he had sudden onset of substernal chest pain with radiation of the right arm. He states that this pain was similar to pain with prior heart attacks, last being in May of this year where he was hospitalized. His manager camp is Dr. Farmer, last saw him a few months ago. He notes that with the onset of chest pain, he also had shortness of breath. He notes taking 2 sublingual nitros, this eventually did subside his pain and at this time he is asymptomatic. After the chest pain he did take his blood pressure and found it to be greater than 200 systolic. Denies any recent medication changes. He states that after his last hospitalization he was started on a long-acting nitrate. No other symptoms to report, asymptomatic at this time. MD complaint: chest pain Pertinent past history: coronary artery disease, prior [place] and [employer] Onset (ago): hour(s) Timing of current episode: now resolved Prior episodes: Yes Onset: during rest Pain location: substernal Pain radiation: right arm Severity: moderate Quality: similar to prior [place] Relieving factors: nitroglycerin Exacerbating factors: nothing Associated symptoms: Reports dyspnea; Deny abdominal pain, fever(s), nausea, palpitations or vomiting Treatment prior to arrival: nitroglycerin Risk Factors: Coronary artery disease risk factors: diabetes, hyperlipidemia and hypertension Related Data Home Medications Medication Instructions Recorded Confirmed aspirin 81 mg tablet,delayed 81 mg PO DAILY 09/18/22 07/07/24 release Previous Rx's Medication Instructions Recorded Nebulizer #1 ea 08/19/23 omega-3 acid ethyl esters 1 gram 2 cap PO BID #360 caps 11/19/23 capsule nitroglycerin 0.4 mg sublingual 0.4 mg sublingual Q5M #25 tabs 06/03/24 tablet albuterol sulfate 2.5 mg/3 mL 2.5 mg (3 mL) inhalation Q4H PRN 06/16/24 (0.083 %) solution for nebulization shortness of breath or wheezing #180 mL albuterol sulfate 90 mcg/actuation 2 puff inhalation Q4H PRN 06/16/24 aerosol inhaler shortness of breath or wheezing #25.5 grams atorvastatin 80 mg tablet 80 mg PO DAILY #90 tabs 06/16/24 finasteride 5 mg tablet (Proscar) 5 mg PO DAILY #90 tabs 06/16/24 fluticasone fur. 100 mcg-umeclid 1 inh inhalation Q24H #28 ea 06/16/24 62.5 mcg-vilant 25 mcg inhalat.powder (Trelegy Ellipta) glipizide 10 mg tablet, extended 10 mg PO DAILY #90 tabs 06/16/24 release 24 hr icosapent ethyl 1 gram capsule 2 g (2 x 1 gram) PO BID #120 caps 06/16/24 (Vascepa) isosorbide mononitrate 30 mg 30 mg PO DAILY #90 tabs 06/16/24 tablet,extended release 24 hr metformin 500 mg tablet,extended 1,500 mg (3 x 500 mg) PO DAILY 06/16/24 release 24 hr #270 tabs sertraline 50 mg tablet (Zoloft) 50 mg PO DAILY #90 tabs 06/16/24 sotalol 120 mg tablet (Sotalol AF) 120 mg PO BID #180 tabs 06/16/24 spironolactone 25 mg tablet 25 mg PO QAM #90 tabs 06/16/24 valsartan 80 mg tablet (Diovan) 80 mg PO DAILY #90 tabs 06/16/24 Allergies Allergy/AdvReac Type Severity Reaction Status Date / Time oxytetracycline Allergy Unknown hives Verified 07/07/24 06:43 [From Terramycin] Review of Systems 2 General: Reports: 10 or more systems reviewed and unremarkable except in HPI and below Const: Denies: fever(s), chills or fatigue Eyes: Denies: change in vision ENMT: Denies: throat pain, ear or mastoid pain or nasal discharge Card: Reports: chest pain; Denies: palpitations, swelling of feet/ankles or lightheadedness Resp: Reports: dyspnea; Denies: productive cough or wheezing GI: Denies: abdominal pain, nausea, vomiting, diarrhea or constipation : Denies: flank pain, difficulty urinating, dysuria or urinary frequency Musc: Denies: neck pain, back pain or joint pain Skin/Breast: Denies: rash Neuro: Denies: headache(s), numbness in extremities or weakness in extremities PFSH ED 2 PFSH: Medical History BPH (benign prostatic hyperplasia) Diabetes mellitus with hyperglycemia Essential hypertension Hyperlipidemia, mixed COPD (chronic obstructive pulmonary disease) CAD (coronary artery disease) History of cardiac arrest 03/26/[address] Surgical History History of implantable cardiac defibrillator (ICD) Had 2 producers 2010 and 2019 History of heart artery stent two different times Family History Father CAD (coronary artery disease) Hypertension Mother CAD (coronary artery disease) Diabetes Sister Cancer Eye Stroke Brother Cancer Lung brain Denies family history of Chronic kidney disease (CKD) Anesthesia complication Bleeding disorder Social History Smoking and tobacco/nicotine status: unknown if used tobacco/nicotine Second hand smoke exposure: No Alcohol intake: current Alcohol intake frequency: 0-2 Drinks per Day Alcohol type: beer Substance/Drug Use: unknown Adopted: No Caregiver/support person: No Lives independently: Yes Household members: spouse Housing: House Marital status: Number of children: 3 service: No Current occupational status: retired Pets and animals: Yes Pets & animals: farm animals Do you think of yourself as: Straight/Heterosexual Current gender identity: Male Physical Exam 2 Const: COMMON NORMALS: no acute distress and no limitations GENERAL APPEARANCE: cooperative, comfortable and well developed O RIENTATION/CONSCIOUSNESS: Yes awake HENMT: COMMON NORMALS: normocephalic, atraumatic and hearing grossly normal bilaterally HEAD & SCALP: normocephalic and atraumatic Eye: COMMON NORMALS: Equal, round and reactive pupils present, EOMs intact bilaterally and conjunctivae normal CONJUNCTIVA: Yes conjunctivae normal P UPIL: Yes Equal, round and reactive pupils present Neck/C-Spine: COMMON NORMALS: full ROM, supple and no JVD Chest: OTHER: Pacemaker defibrillator left anterior chest wall Resp: COMMON NORMALS: normal respiratory effort, No retractions, No use of accessory muscles and clear to auscultation bilaterally AUSCULTATION: clear to auscultation bilaterally Cardio: COMMON NORMALS: no JVD, regular rate, regular rhythm, No clicks present (Cardio), No murmurs present (Cardio) and No rub (Cardio) RATE: r egular rate RHYTHM: regular rhythm GI: COMMON NORMALS: Normal to inspection, nondistended, normoactive bowel sounds present, Soft to palpation and non-tender INSPECTION: Yes central obesity AUSCULTATION: Yes normoactive bowel sounds PALPATION: Yes Soft to palpation RECTAL EXAM: Yes deferred Extremity: COMMON NORMALS: normal to inspection, full ROM and capillary refill normal OTHER: No peripheral edema Psych: COMMON NORMALS: mental status grossly normal and Normal thought process present THOUGHT PROCESS: Normal thought process present Skin: COMMON NORMALS: no rashes or lesions noted GENERAL SKIN EXAM: no rashes or lesions noted Course 2 Vital Signs: Vital signs: Vital Signs Temperature 98.0 F 07/13/24 20:18 Pulse Rate 61 07/13/24 23:06 Respiratory Rate 21 H 07/13/24 23:06 Blood Pressure 134/67 07/13/24 23:06 Pulse Oximetry 92 07/13/24 23:06 Oxygen Delivery Me thod Room Air 07/13/24 23:06 MDM - Chest Pain Medical Decision Making Patient has significant cardiac history and is presenting to the emergency department with chest pain radiating right arm, which is resolved on arrival however he did take 2 nitro prior. He had a hospitalization for an NSTEMI with acute hypoxic respiratory failure back in May, has been otherwise okay since then and he was started on isosorbide nitrate at that time. Tonight the pain occurred at rest. He does arrive with an EKG showing no acute STEMI or other concerning findings, he does have a history of pacemaker/defibrillator. His repeat EKG that was also reviewed with physician did not show any abnormalities as well. His lab work all normal, including unremarkable troponin when compared to his prior. His blood pressures have been declining and stable here in the emergency department, and he has been asymptomatic through the entirety of this day. I spoke with hospitalist, Dr. Mccray, in regards to patient's case, he agrees that this can be closely followed up with his manager camp and no need for observation admission at this time. I spoke with patient and family, they are stating that they want to go home as well, and I spoke with patient in regards to reasons to return such that if he has any recurrence of the pain to return immediately. He endorses understanding, and will call Dr. Sal in the morning to schedule follow-up appointment. All other questions and concerns addressed. Spoke with Dr. Gupta here in the emergency department in regards to patient's case. Lab Data 07/13/24 21:00 07/13/24 21:00 Radiology Impressions Chest X-Ray 07/13/24 20:20 IMPRESSION: Minimal left basilar streak atelectasis and other chronic findings detailed above. No acute plain radiographic cardiopulmonary abnormality. Laboratory Results WBC 9.16 10^3/uL (3.29-11.43) 07/13/24 21:00 RBC 4.61 10^6/uL (3.85-5.65) 07/13/24 21:00 Hgb 13.00 g/dL (11.27-16.99) 07/13/24 21:00 Hct 40.4 % (37-53) 07/13/24 21:00 MCV 87.6 fl (82-101) 07/13/24 21:00 MCH 28.2 pg (27-33) 07/13/24 21:00 MCHC 32.2 g/dL (30-55) 07/13/24 21:00 RDW 14.6 % (12.1-15.1) 07/13/24 21:00 Plt Count 217 10^3/cmm (157-399) 07/13/24 21:00 MPV 8.9 fL (7.4-10.4) 07/13/24 21:00 Neut % (Auto) 54.7 % 07/13/24 21:00 Lymph % (Auto) 18.9 % 07/13/24 21:00 Harmon % (Auto) 9.5 % 07/13/24 21:00 Eos % (Auto) 15.0 % 07/13/24 21:00 Baso % (Auto) 1.4 % 07/13/24 21:00 Neut # (Auto) 5.01 10^3/uL (1.8-7.7) 07/13/24 21:00 Lymph # (Auto) 1.7 10^3/uL (0.8-4.8) 07/13/24 21:00 Harmon # (Auto) 0.9 10^3/uL (0.2-0.9) 07/13/24 21:00 Eos # (Auto) 1.4 10^3/uL (0.0-0.8) H 07/13/24 21:00 Baso # (Auto) 0.1 10^3/uL (0.0-0.1) 07/13/24 21:00 Nucleated RBC % (auto) 0 % 07/13/24 21:00 Nucleated RBCs # 0.0 /100WBC 07/13/24 21:00 PT 12.30 SECONDS (12.1-14.9) 07/13/24 21:00 INR 0.89 (0.8-1.2) 07/13/24 21:00 Sodium 134 mmol/L (136-145) L 07/13/24 21:00 Potassium 4.3 mmol/L (3.5-5.1) 07/13/24 21:00 Chloride 99 mmol/L (98-107) 07/13/24 21:00 Carbon Dioxide 23 mmol/L (22-29) 07/13/24 21:00 Anion Gap 16.3 (5-19) 07/13/24 21:00 BUN 18 mg/dL (8-23) 07/13/24 21:00 Creatinine 0.9 mg/dL (0.7-1.2) 07/13/24 21:00 GFR Calculation Not Reportable 07/13/24 21:00 Glucose 266 mg/dL (65-115) H 07/13/24 21:00 Calculated Osmolality 289 mOsm/kg (285-295) 07/13/24 21:00 Calcium 8.5 mg/dL (8.5-10.5) 07/13/24 21:00 Total Bilirubin 0.2 mg/dL (0.15-1.2) 07/13/24 21:00 AST 21 U/L (0-40) 07/13/24 21:00 ALT 31 U/L (0-41) 07/13/24 21:00 Alkaline Phosphatase 72 U/L (40-130) 07/13/24 21:00 Troponin T Baseline 17 ng/L (0-15) H 07/13/24 21:00 Troponin T 120 Minute 15.88 ng/L (0-15) H 07/13/24 22:49 Delta Troponin T -1.12 ABS# (0-10) L 07/13/24 22:49 Total Protein 6.2 g/dL (6.6-8.7) L 07/13/24 21:00 Albumin 4.1 g/dL (3.5-5.2) 07/13/24 21:00 Globulin 2.1 g/dL (1.3-4.6) 07/13/24 21:00 All radiology interpretation(s) finalized by discharge Discharge Plan Discharge Patient Disposition: Home Clinical Impression: Chest pain Qualifiers: Chest pain type: unspecified Qualified Code(s): R07.9 - Chest pain, unspecified Condition: Stable Prescriptions: No Action aspirin 81 mg tablet,delayed release (DR/EC) 81 mg PO DAILY (DME) Nebulizer See Rx Instructions .Route .MEDSUPPLY Qty: 1 0RF Rx Instructions: As directed omega-3 acid ethyl esters 1 gram capsule 2 cap PO BID Qty: 360 1RF spironolactone 25 mg tablet 25 mg PO QAM Qty: 90 1RF sotalol [Sotalol AF] 120 mg tablet 120 mg PO BID Qty: 180 1RF glipizide 10 mg tablet extended release 24hr 10 mg PO DAILY Qty: 90 1RF atorvastatin 80 mg tablet 80 mg PO DAILY Qty: 90 1RF albuterol sulfate 2.5 mg /3 mL (0.083 %) solution for nebulization 2.5 mg inhalation Q4H PRN (Reason: shortness of breath or wheezing) Qty: 180 5RF albuterol sulfate 90 mcg/actuation HFA aerosol inhaler 2 puff inhalation Q4H PRN (Reason: shortness of breath or wheezing) Qty: 25.5 1RF isosorbide mononitrate 30 mg tablet extended release 24 hr 30 mg PO DAILY Qty: 90 1RF sertraline [Zoloft] 50 mg tablet 50 mg PO DAILY Qty: 90 1RF Trelegy Ellipta 100-62.5-25 mcg blister with device 1 inh inhalation Q24H Qty: 28 5RF finasteride [Proscar] 5 mg tablet 5 mg PO DAILY Qty: 90 1RF icosapent ethyl [Vascepa] 1 gram capsule 2 g PO BID Qty: 120 2RF valsartan [Diovan] 80 mg tablet 80 mg PO DAILY Qty: 90 0RF metformin 500 mg tablet extended release 24 hr 1,500 mg PO DAILY Qty: 270 1RF nitroglycerin 0.4 mg tablet, sublingual 0.4 mg sublingual Q5M Qty: 25 5RF Discharge Orders: Discharge ED (Routine); Ordered 07/13/24 Ordered By: Tremaine Vogt Referrals: Kaveh Craig, JOSEPH [Primary Care Provider] - Patient Instructions: Chest Pain (ED) Activity Restrictions/Additional Instructions: Please call Dr. Farmer's office in the morning to schedule close follow-up appointment as discussed. If you have any recurrence of the chest pain please return to the emergency department immediately as discussed. Continue home medications. Continue monitoring blood pressures at home. 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
[2024-07-13 21:07] LABS: Basophils # 0.1 10^3/uL (0.0-0.1); Basophils % 1.4 %; Eosinophils # 1.4 10^3/uL (0.0-0.8); Hematocrit 40.4 % (37-53); Lymphocytes # 1.7 10^3/uL (0.8-4.8); Lymphocytes % 18.9 %; Mean Corpuscular HGB Conc 32.2 g/dL (30-55); Mean Corpuscular Hemoglobin 28.2 pg (27-33); Mean Corpuscular Volume 87.6 fl (82-101); Mean Platelet Volume 8.9 fL (7.4-10.4); Monocytes # 0.9 10^3/uL (0.2-0.9); Monocytes % 9.5 %; Neutrophils # 5.01 10^3/uL (1.8-7.7); Neutrophils % 54.7 %; Nucleated Red Blood Cells % 0 %; Platelet Count 217 10^3/cmm (157-399); Red Blood Count 4.61 10^6/uL (3.85-5.65); Red Cell Distribution Width 14.6 % (12.1-15.1); White Blood Count 9.16 10^3/uL (3.29-11.43)
[2024-07-13 21:20] LABS: INR 0.89 (0.8-1.2)
[2024-07-13 21:24] LABS: Troponin(5th) Baseline 17 ng/L (0-15)
[2024-07-13 21:25] LABS: Alanine Aminotransferase 31 U/L (0-41); Albumin Level 4.1 g/dL (3.5-5.2); Alkaline Phosphatase 72 U/L (40-130); Anion Gap 16.3 (5-19); Aspartate Amino Transferase 21 U/L (0-40); Blood Urea Nitrogen 18 mg/dL (8-23); Calcium 8.5 mg/dL (8.5-10.5); Carbon Dioxide 23 mmol/L (22-29); Chloride 99 mmol/L (98-107); Creatinine Clr Calc Pharmacy 78.7864; Globulin 2.1 g/dL (1.3-4.6); Glucose 266 mg/dL (65-115); Osmolality Calculated 289 mOsm/kg (285-295); Potassium 4.3 mmol/L (3.5-5.1); Sodium 134 mmol/L (136-145); Total Bilirubin 0.2 mg/dL (0.15-1.2); Total Protein 6.2 g/dL (6.6-8.7)
[2024-07-13 22:00] VITALS: BP 157/66; PULSE 64; RESP 18; O2SAT 92
--- NOTE | 2024-07-13 22:23 | ECG_ITS ---
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
[2024-07-13 23:06] VITALS: BP 134/67; PULSE 61; RESP 21; O2SAT 92
[2024-07-13 23:12] LABS: Troponin 5 2HR 15.88 ng/L (0-15)
[2024-07-13 23:15] LABS: Troponin 5 2HR Delta -1.12 ABS# (0-10)
[2024-07-13 23:40] LABS: Lipase 29 U/L (13-60)
[2024-07-13 23:59] VITALS: BP 160/76; PULSE 61; O2SAT 92
== END 2024-07-13 23:38 | disposition home or self-care (01) ==
PROVIDERS: Emergency Medicine; Emergency Provider Physician Assistant; PCP Nurse Practitioner
DX: R07.9 Chest pain, unspecified (principal); Z79.82 Long term (current) use of aspirin; Z79.84 Long term (current) use of oral hypoglycemic drugs; Z95.810 Presence of automatic (implantable) cardiac defibrillator; E11.65 Type 2 diabetes mellitus with hyperglycemia; J44.9 Chronic obstructive pulmonary disease, unspecified; I25.10 Atherosclerotic heart disease of native coronary artery without angina pectoris; I10 Essential (primary) hypertension
CPT/HCPCS: 71045; 80053; 83690; 84484; 85025; 85610; 93005; 99285

== ENCOUNTER → 2024-07-29 09:05 | Outpatient (BNVA) | payer MEDICARE, SELFPAY | PROVIDERS: PCP Nurse Practitioner; Visit Provider Nurse Practitioner Family | DX: I11.0 Hypertensive heart disease with heart failure (principal); I50.20 Unspecified systolic (congestive) heart failure; Z95.810 Presence of automatic (implantable) cardiac defibrillator; Z87.891 Personal history of nicotine dependence | CPT/HCPCS: 99213 ==

== ENCOUNTER → 2024-08-25 09:49 | Outpatient (BNVA) | payer MEDICARE, SELFPAY | PROVIDERS: PCP Nurse Practitioner; Visit Provider Nurse Practitioner | DX: E11.9 Type 2 diabetes mellitus without complications (principal); J43.8 Other emphysema; J44.9 Chronic obstructive pulmonary disease, unspecified; E11.65 Type 2 diabetes mellitus with hyperglycemia; E78.2 Mixed hyperlipidemia; I25.10 Atherosclerotic heart disease of native coronary artery without angina pectoris; F41.8 Other specified anxiety disorders; Z79.899 Other long term (current) drug therapy | CPT/HCPCS: 80053; 81000; 83036 ==

== ENCOUNTER → 2024-09-16 07:05 | Outpatient (BNVA) | payer MEDICARE, SELFPAY | PROVIDERS: PCP Nurse Practitioner; Visit Provider Podiatrist Foot & Ankle Surgery | DX: L30.9 Dermatitis, unspecified (principal); B35.1 Tinea unguium; I73.9 Peripheral vascular disease, unspecified; R60.9 Edema, unspecified; E11.69 Type 2 diabetes mellitus with other specified complication; L84 Corns and callosities | CPT/HCPCS: 11056; 11721; 99213 ==

== ENCOUNTER → 2024-11-03 08:59 | Outpatient (BNVA) | payer MEDICARE, SELFPAY | PROVIDERS: PCP Nurse Practitioner; Visit Provider Internal Medicine | DX: I73.9 Peripheral vascular disease, unspecified (principal); Z95.810 Presence of automatic (implantable) cardiac defibrillator; E11.65 Type 2 diabetes mellitus with hyperglycemia; I10 Essential (primary) hypertension; E78.2 Mixed hyperlipidemia; J43.8 Other emphysema; I25.10 Atherosclerotic heart disease of native coronary artery without angina pectoris; F17.200 Nicotine dependence, unspecified, uncomplicated; Z79.84 Long term (current) use of oral hypoglycemic drugs | CPT/HCPCS: 99213 ==

== ENCOUNTER → 2024-11-16 08:53 | Outpatient (BNVA) | payer MEDICARE, SELFPAY | PROVIDERS: PCP Nurse Practitioner; Visit Provider Nurse Practitioner | DX: E11.65 Type 2 diabetes mellitus with hyperglycemia (principal) | CPT/HCPCS: 80053; 80061; 81000; 83036 ==

== ENCOUNTER → 2024-11-17 07:18 | Outpatient (BNVA) | payer MEDICARE, SELFPAY | PROVIDERS: PCP Nurse Practitioner; Visit Provider Podiatrist Foot & Ankle Surgery | DX: E11.69 Type 2 diabetes mellitus with other specified complication (principal); B35.1 Tinea unguium; I73.9 Peripheral vascular disease, unspecified; R60.9 Edema, unspecified | CPT/HCPCS: 11056; 11721 ==

== ENCOUNTER → 2025-01-19 07:17 | Outpatient (BNVA) | payer MEDICARE, SELFPAY | PROVIDERS: PCP Nurse Practitioner; Visit Provider Podiatrist Foot & Ankle Surgery | DX: E11.69 Type 2 diabetes mellitus with other specified complication (principal); B35.1 Tinea unguium; L84 Corns and callosities; I73.9 Peripheral vascular disease, unspecified | CPT/HCPCS: 11056; 11721 ==

== ENCOUNTER → 2025-02-08 10:24 | Outpatient (BNVA) | payer MEDICARE, SELFPAY | PROVIDERS: PCP Nurse Practitioner; Visit Provider Nurse Practitioner | DX: Z12.5 Encounter for screening for malignant neoplasm of prostate (principal); I10 Essential (primary) hypertension; E11.65 Type 2 diabetes mellitus with hyperglycemia | CPT/HCPCS: 80053; 81000; 82043; 83036; G0103 ==

== ENCOUNTER → 2025-03-23 07:13 | Outpatient (BNVA) | payer MEDICARE, SELFPAY | PROVIDERS: PCP Nurse Practitioner; Visit Provider Podiatrist Foot & Ankle Surgery | DX: E11.69 Type 2 diabetes mellitus with other specified complication (principal); B35.1 Tinea unguium; E11.8 Type 2 diabetes mellitus with unspecified complications; I73.9 Peripheral vascular disease, unspecified | CPT/HCPCS: 11721 ==

== ENCOUNTER → 2025-04-28 07:21 | Outpatient (BNVA) | payer MEDICARE, SELFPAY | PROVIDERS: PCP Nurse Practitioner; Visit Provider Podiatrist Foot & Ankle Surgery | DX: B35.1 Tinea unguium (principal); I73.9 Peripheral vascular disease, unspecified; E11.69 Type 2 diabetes mellitus with other specified complication; L03.116 Cellulitis of left lower limb | CPT/HCPCS: 99214 ==

== ENCOUNTER → 2025-05-03 10:21 | Outpatient (BNVA) | payer MEDICARE, SELFPAY | PROVIDERS: PCP Nurse Practitioner; Visit Provider Nurse Practitioner | DX: E11.9 Type 2 diabetes mellitus without complications (principal); E11.65 Type 2 diabetes mellitus with hyperglycemia | CPT/HCPCS: 80053; 80061; 81000; 83036 ==

== ENCOUNTER → 2025-05-04 15:18 | Outpatient (BNVA) | payer MEDICARE, SELFPAY | PROVIDERS: PCP Nurse Practitioner; Visit Provider Internal Medicine | DX: R07.89 Other chest pain (principal); I25.10 Atherosclerotic heart disease of native coronary artery without angina pectoris; I73.9 Peripheral vascular disease, unspecified; E11.65 Type 2 diabetes mellitus with hyperglycemia; Z79.84 Long term (current) use of oral hypoglycemic drugs; I10 Essential (primary) hypertension; E78.2 Mixed hyperlipidemia; J44.9 Chronic obstructive pulmonary disease, unspecified; Z79.82 Long term (current) use of aspirin; F17.200 Nicotine dependence, unspecified, uncomplicated; Z95.810 Presence of automatic (implantable) cardiac defibrillator; Z95.5 Presence of coronary angioplasty implant and graft | CPT/HCPCS: 99214 ==

== ENCOUNTER → 2025-06-03 08:20 | Outpatient (BNVA) | payer MEDICARE, SELFPAY | PROVIDERS: PCP Nurse Practitioner; Visit Provider Podiatrist Foot & Ankle Surgery | DX: E11.69 Type 2 diabetes mellitus with other specified complication (principal); B35.1 Tinea unguium; I73.9 Peripheral vascular disease, unspecified; L03.90 Cellulitis, unspecified | CPT/HCPCS: 11721 ==

== ENCOUNTER 2025-06-04 06:55 | Outpatient (CLI) | payer MEDICARE, SELFPAY ==
--- NOTE | 2025-06-04 06:45 | CT_ITS ---
WS: [id number] LDCT LUNG CANCER SCREENING TECHNIQUE: Noncontrast CT of the chest with coronal and sagittal reformatted images. CLINICAL INFORMATION: F17.210 - Nicotine dependence, cigarettes, uncomplicated COMPARISON: 11/27/2023 DLP: 69.07 mGy.cm DIvol: Mean CTDIvol: 1.20 (mGy) All CT scans at [facility] use at least one of these dose optimization techniques: automated exposure control; mA and/or kV adjustment per patient size (includes targeted exams where dose is matched to clinical indication); or iterative reconstruction. FINDINGS: Patchy airspace infiltrates RIGHT lower lobe previously described have resolved. Also previously described spiculated lesion in the LEFT lower lobe has resolved. 4 mm noncalcified nodule RIGHT middle lobe new from previous. Cardiomegaly. Aortic calcification. Coronary calcification. AICD. No mediastinal or hilar lymphadenopathy. No axillary lymphadenopathy. Adrenal glands are normal. Normal GE junction. Hypertrophic changes thoracic spine. CT/CT lung screening [id number] IMPRESSION: LUNG-RADS: 2-Benign Appearance or Behavior FOLLOW UP: 12 Month: Continue annual screening with LDCT
== END 2025-06-04 06:56 | disposition home or self-care (01) ==
LOC: RAD 06:57
PROVIDERS: PCP Nurse Practitioner; Visit Provider Nurse Practitioner
DX: F17.210 Nicotine dependence, cigarettes, uncomplicated (principal)
CPT/HCPCS: 71271

== ENCOUNTER → 2025-07-01 08:11 | Outpatient (BNVA) | payer MEDICARE, SELFPAY | PROVIDERS: PCP Nurse Practitioner; Visit Provider Podiatrist Foot & Ankle Surgery | DX: E11.69 Type 2 diabetes mellitus with other specified complication (principal); B35.1 Tinea unguium; I73.9 Peripheral vascular disease, unspecified; L03.90 Cellulitis, unspecified; L03.115 Cellulitis of right lower limb; Z79.85 Long-term (current) use of injectable non-insulin antidiabetic drugs | CPT/HCPCS: 11721 ==

== ENCOUNTER → 2025-07-26 10:17 | Outpatient (BNVA) | payer MEDICARE, SELFPAY | PROVIDERS: PCP Nurse Practitioner; Visit Provider Nurse Practitioner | DX: E11.65 Type 2 diabetes mellitus with hyperglycemia (principal); E55.9 Vitamin D deficiency, unspecified | CPT/HCPCS: 80053; 81000; 82043; 83036 ==

== ENCOUNTER → 2025-08-12 07:56 | Outpatient (BNVA) | payer MEDICARE, SELFPAY | PROVIDERS: PCP Nurse Practitioner; Visit Provider Podiatrist Foot & Ankle Surgery | DX: E11.69 Type 2 diabetes mellitus with other specified complication (principal); B35.1 Tinea unguium; L84 Corns and callosities; I73.9 Peripheral vascular disease, unspecified; L03.90 Cellulitis, unspecified; Z79.85 Long-term (current) use of injectable non-insulin antidiabetic drugs | CPT/HCPCS: 11056; 11721 ==